=== PATIENT | female | born 1985 | race Caucasian/White ===

== ENCOUNTER → 2019-10-15 08:02 | Outpatient (BNVA) | payer MEDICAID, SELFPAY | PROVIDERS: Family Provider Family Medicine; PCP Family Medicine; Visit Provider Nurse Practitioner | DX: F33.1 Major depressive disorder, recurrent, moderate (principal); F41.1 Generalized anxiety disorder | CPT/HCPCS: 90832; 99213 ==

== ENCOUNTER 2019-10-26 12:33 | Outpatient (CLI) | payer MEDICAID, SELFPAY ==
--- NOTE | 2019-10-26 12:40 | CT_ITS ---
WS: [id number] CT scan of the sinuses without IV contrast. Additional two-dimensional coronal and sagittal reconstru ction was performed. 10/26/2019 Clinical Data: CHRONIC SINUSITIS/FEVER X 30 DAYS Comparison: None. DLP: 524.[address] scans at [facility] use at least one of these dose optimization techniques: automat ed exposure control; mA and/or kV adjustment per patient size (includes targeted exams where dose is matched to clinical indication); or iterative reconstruction. Findings: The sinus cavities are clear with no air-fluid levels or bone destruction. The orbits are intact. The nasal bones are unremarkable. The intraorbital contents show no abnormalities. CT/CT sinus wo con* [id number] Impression: Negative CT scan of the sinuses.
== END 2019-10-26 12:34 | disposition home or self-care (01) ==
LOC: RAD 12:37
PROVIDERS: Family Provider Family Medicine; PCP Family Medicine; Visit Provider Family Medicine
DX: J32.9 Chronic sinusitis, unspecified (principal); R50.9 Fever, unspecified
CPT/HCPCS: 70486

== ENCOUNTER 2019-10-26 15:52 | Outpatient (CLI) | payer MEDICAID, SELFPAY ==
--- NOTE | 2019-10-26 | XR_ITS ---
WS: [id number] CHEST 2 VIEWS HISTORY: FEVER COMPARISON: 11/13/2017 Lungs: Clear with no abnormality. No pleural effusion or pneumothorax. Cardiac size: Normal. Mediastinum/Aorta: Normal mediastinum. Bones: Normal. XR/XR chest 2V* [id number] IMPRESSION: Normal chest.
== END 2019-10-26 15:53 | disposition home or self-care (01) ==
LOC: RADOUTREAD 15:57
PROVIDERS: Family Provider Family Medicine; PCP Family Medicine; Visit Provider Family Medicine
DX: R50.9 Fever, unspecified (principal)

== ENCOUNTER 2019-11-03 10:40 | Emergency (ER) | payer MEDICAID, SELFPAY ==
[2019-11-03] VITALS (35 sets, daily range): BP systolic 102–142; BP diastolic 57–103; PULSE 83–120; RESP 16–18; TEMP 36.9; O2SAT 91–99; BMI 22.4
--- NOTE | 2019-11-03 10:54 | ED_ITS ---
Entered by Norma Collier, acting as scribe for Robert Lerner MD HPI - Abdominal Pain General: Chief Complaint: Abdominal Pain Stated Complaint: L side pain Time Seen by Provider: 11/03/19 10:52 Source: patient Mode of arrival: ambulatory Limitations: no limitations History of Present Illness: HPI narrative: 33 yo female presents to ED with complaints of LLQ abdominal pain. The patient states she has a lot of pain with urination and frequent urination. She said she has a history of UTI's. She denies vomiting but is nauseated and has diarrhea. MD elicited complaint: abdominal pain (LLQ) and flank pain (L) Pertinent past history: past UTI Onset (ago): hour(s) Pain Consistency: constant Location: LLQ and L flank Severity: severe Quality: cramping, fullness and sharp Radiation: none Migration to: L flank Exacerbating factors: nothing Relieving factors: nothing Associated Symptoms: Reports diarrhea and nausea; Denies chills and fever(s) Review of Systems Const: Denies: fever or chills Eyes: Denies: change in vision ENMT: Denies: throat pain or mouth pain Card: Denies: chest pain Resp: Denies: shortness of breath GI: Reports: abdominal pain, nausea and diarrhea Musc: Denies: joint pain Skin/Breast: Denies: rash Neuro: Denies: headache or behavioral changes Psych: Denies: depression Endo: Reports: excessive urination Kody/Lymph: Denies: easy bruising All/Imm: Denies: hives PFSH ED PFSH: Statuses (acute, chronic, etc) shown below reflect problem list status as previously entered and may not be historically accurate Medical History (Updated 11/03/19 @ 13:38 by Robert Lerner MD) Generalized anxiety disorder (Acute) Major depressive disorder, recurrent, moderate (Acute) Social History Smoking and tobacco status: never smoked Physical Exam Const: COMMON NORMALS: no apparent distress and healthy appearing HENMT: COMMON NORMALS: normocephalic and external nose normal HEAD & SCALP: normocephalic NOSE: external nose normal and no nasal discharge (nasal dischage) Eye: COMMON NORMALS: PERRL PUPIL: Yes PERRL Neck/C-Spine: COMMON NORMALS: full ROM and no lymphadenopathy Chest: COMMONS NORMALS: inspection of chest normal Resp: COMMON NORMALS: normal respiratory effort and clear to auscultation bilaterally AUSCULTATION: clear to auscultation bilaterally Cardio: COMMON NORMALS: regular rate and regular rhythm RATE: regular rate RHYTHM: regular rhythm GI: COMMON NORMALS: soft to palpation PALPATION: Yes soft OTHER: Tenderness to left lower quadrant mild to moderate. No rebound. Extremity: COMMON NORMALS: normal to inspection, full ROM and normal capillary refill Psych: COMMON NORMALS: mental status grossly normal and cooperative Skin: COMMON NORMALS: no rashes or lesions noted GENERAL SKIN EXAM: no rashes or lesions noted Course Vital Signs: Vital signs: Vital Signs Temperature 98.4 F 11/03/19 10:45 Pulse Rate 83 11/03/19 13:56 Respiratory Rate 18 11/03/19 13:56 Blood Pressure 102/57 11/03/19 13:56 Pulse Oximetry 99 11/03/19 13:56 MDM - Abdominal Pain MDM Narrative: Medical decision making narrative: Patient presents here with abdominal pain. Patient has no signs UTI and lab work is normal. His CT of her abdomen is normal as well. Her pain is improved here and will prescribe her Reglan for home. She is to follow-up with her primary care doctor in 3 to 5 days return if worsening. Lab Data: Labs: Lab Results 11/03/19 11/03/19 11/03/19 Range/Units 10:55 11:08 11:08 WBC 7.1 (4.0-10.0) 10^3/ uL RBC 4.73 (4.1-5.3) 10^6/u L Hgb 14.1 (11.5-15.3) g/dL Hct 40.3 (37.0-47.0) % MCV 85.2 (81-99) fL MCH 29.8 (28.0-34.0) pg MCHC 35.0 (30.0-36.0) g/dL RDW 12.2 (12.1-15.1) % Plt Count 314 (130-400) 10^3/c mm MPV 9.4 (7.4-10.4) fL Neut % (Auto) 45.9 % Lymph % (Auto) 44.7 % [place] % (Auto) 6.0 % Eos % (Auto) 2.7 % Baso % (Auto) 0.6 % Neut # (Auto) 3.3 (1.8-7.7) 10^3/u L Lymph # (Auto) 3.2 (0.8-4.8) 10^3/u L [place] # (Auto) 0.4 (0.2-0.9) 10^3/u L Eos # (Auto) 0.2 (0.0-0.8) 10^3/u L Baso # (Auto) 0.0 (0.0-0.1) 10^3/u L Nucleated RBC % (a uto) 0 % Nucleated RBCs # 0.0 /100WBC Sodium 137 (136-145) mmol/L Potassium 3.8 (3.5-5.1) mmol/L Chloride 102 (98-107) mmol/L Carbon Dioxide 22 (22-29) mmol/L Anion Gap 16.8 (5-19) BUN 10 (6-20) mg/dL Creatinine 0.7 (0.5-0.9) mg/dL GFR Calculation 95.2 (90-130) mL/min Glucose 105 (74-109) mg/dL Calcium 9.8 (8.5-10.5) mg/dL Total Bilirubin 0.5 (0.15-1.2) mg/dL AST 32 (0-32) U/L ALT 28 (0-33) U/L Alkaline Phosphata se 54 (35-105) IU/L Total Protein 6.9 (6.6-8.7) g/dL Albumin 5.0 (3.5-5.2) g/dL Globulin 1.9 (1.3-4.6) g/dL Lipase 48 (13-60) U/L Urine Color Colorless (Yellow) Urine Appearance Sl hazy (CLEAR) Urine pH 6.5 (5-7) Ur Specific Gravit y 1.000 L (1.005-1.030) Urine Protein Neg (Negative) Urine Glucose (UA) Norm (Normal) Urine Ketones Negative (Negative) Urine Occult Blood Neg (Negative) Urine Nitrate Negative (Negative) Urine Bilirubin Neg (NEGATIVE) Urine Urobilinogen Norm (Negative) mg/dL Ur Leukocyte Sridevi ase Negative (Negative) Urine RBC 0-4 H (0-2) /hpf Urine WBC 5-10 H (0-5) /hpf Ur Squamous Epith Cells 10-15 H (0-5) Amorphous Sediment 1+ Urine Bacteria 1+ H (NONE) Urine Mucus Trace Imaging Data ^: CT Abd/Pel: Radiologist's impression: [facility] Final Radiology Report Call: [phone] assistance Online chat: [email or web address] Name: KIKO DRIVER Age: 33Years F Date: 11/03/2019 SSN: -- : 1985 Study: CT ABDOMEN/PELVIS W Requesting Physician: robert Lerner Images: [id number] Add?l Studies: Provided Clinical History: abd pain Procedure Accession CTDI Vol (mGy) DLP (mGy-cm) CT ABDOMEN/PELVIS W [id number] 523.84 Page 1 of 2 PROCEDURE INFORMATION: Exam: CT Abdomen And Pelvis With Contrast Exam date and time: 11/03/2019 12:00 PM Age: 33 years old Clinical indication: Abdominal pain; Localized; Left lower quadrant (llq); Prior surgery; Surgery type: Hysterectomy; Patient HX: Llq pain with nausea this a. M. ; Additional info: Abd pain TECHNIQUE: Imaging protocol: Computed tomography of the abdomen and pelvis with intravenous contrast. Total DLP: 523.84 mGy-cm Radiation optimization: All CT scans at this facility use at least one of these dose optimization techniques: automated exposure control; mA and/or kV adjustment per patient size (includes targeted exams where dose is matched to clinical indication); or iterative reconstruction. Contrast material: OMNI 300; Contrast volume: 75 ml; Contrast route: 20G; COMPARISON: CT abdomen pelvis w con* [id number] 05/30/2019 11:35 AM FINDINGS: Liver: No mass. Gallbladder and bile ducts: No calcified stones. No ductal dilation. Pancreas: No ductal dilation. Spleen: No splenomegaly. Adrenals: No mass. Kidneys and ureters: No hydronephrosis. Stomach and bowel: No obstruction. No mucosal thickening. Appendix: No evidence of appendicitis. Intraperitoneal space: No free air. No significant fluid collection. KIKO DRIVER Final Radiology Report CONFIDENTIALITY STATEMENT This report is intended only for use by the referring physician, and only in accordance with law. If you received this in error, call [phone]. Page 2 of 2 Vasculature: No abdominal aortic aneurysm. Lymph nodes: No enlarged lymph nodes. Bladder: Unremarkable as visualized. Reproductive: Status post hysterectomy. 1.9 cm right ovarian cyst. Bones/joints: Unremarkable. No acute fracture. Soft tissues: Unremarkable. IMPRESSION: No acute findings. Thank you for allowing us to participate in the care of your patient. Dictated and Authenticated by: Talisha Tijerina MD 11/03/2019 Discharge Plan Discharge Patient Disposition: Home, Self-Care Clinical Impression: Abdominal pain Qualifiers: Abdominal location: left lower quadrant Qualified Code(s): R10.32 - Left lower quadrant pain Condition: Stable Prescriptions: New EC-Naprosyn 500 mg tablet,delayed release (DR/EC) 500 mg PO BID PRN (Reason: pain) Qty: 20 RF: 0 Reglan 10 mg tablet 10 mg PO Q6H PRN (Reason: nausea and vomiting) Qty: 20 RF: 0 No Action fluoxetine [Prozac] 10 mg capsule 10 mg PO DAILY Qty: 30 RF: 2 clonazepam 0.5 mg tablet 0.5 mg PO BID PRN (Reason: anxiety/panic) Qty: 70 RF: 2 Discharge Orders: Discharge Order (Routine); Ordered 11/03/19 Ordered By: Robert Lerner Referrals: Romel Mckeon MD [Primary Care Provider] - 4-7 days Discharge Diet: Advance as tolerated Discharge Activity: Increase activity as tolerated Patient Instructions: Abdominal Pain (ED) Discharge Date/Time: 11/03/19 13:56 Coding Level of Care Code ED Knitted Cloth Examiner for Chg Fwd Exam Problem Focused The documentation recorded by the Nando to Valerie R, accurately reflects the service I personally performed and the decisions made by Yann mccann Korby, MD Nov 03, 2019 10:40
[2019-11-03] MEDS: morphine 4 mg/mL SDV 1 mL IVP (11:15)
[2019-11-03] MEDS: ondansetron 2 mg/ML SDV 2 mL 4 MG IVP (11:15)
[2019-11-03] MEDS: sodium chloride 0.9% 1,000 ML 999 ML IV (11:17)
[2019-11-03 11:19] LABS: Basophils % 0.6 %; Eosinophils # 0.2 10^3/uL (0.0-0.8); Eosinophils % 2.7 %; Hematocrit 40.3 % (37.0-47.0); Hemoglobin 14.1 g/dL (11.5-15.3); Lymphocytes # 3.2 10^3/uL (0.8-4.8); Lymphocytes % 44.7 %; Mean Corpuscular Hemoglobin 29.8 pg (28.0-34.0); Mean Corpuscular Volume 85.2 fL (81-99); Mean Platelet Volume 9.4 fL (7.4-10.4); Monocytes # 0.4 10^3/uL (0.2-0.9); Neutrophils # 3.3 10^3/uL (1.8-7.7); Neutrophils % 45.9 %; Nucleated Red Blood Cells % 0 %; Platelet Count 314 10^3/cmm (130-400); Red Blood Count 4.73 10^6/uL (4.1-5.3); Red Cell Distribution Width 12.2 % (12.1-15.1); White Blood Count 7.1 10^3/uL (4.0-10.0)
[2019-11-03 11:35] LABS: Alanine Aminotransferase 28 U/L (0-33); Alkaline Phosphatase 54 IU/L (35-105); Anion Gap 16.8 (5-19); Aspartate Amino Transferase 32 U/L (0-32); Blood Urea Nitrogen 10 mg/dL (6-20); Calcium 9.8 mg/dL (8.5-10.5); Carbon Dioxide 22 mmol/L (22-29); Chloride 102 mmol/L (98-107); Globulin 1.9 g/dL (1.3-4.6); Glomerular Filtration Rate 95.2 mL/min (90-130); Glucose 105 mg/dL (74-109); Lipase 48 U/L (13-60); Potassium 3.8 mmol/L (3.5-5.1); Sodium 137 mmol/L (136-145); Total Bilirubin 0.5 mg/dL (0.15-1.2); Total Protein 6.9 g/dL (6.6-8.7)
[2019-11-03] MEDS: ketorolac 30 mg/mL INJ IVP (11:48)
[2019-11-03 11:54] LABS: Urine Appearance SL Hazy (CLEAR); Urine Color Colorless (Yellow); pH Urine 6.5 (5-7)
[2019-11-03 11:55] LABS: Add Urine Microscopic? YES; Bilirubin Urine Neg (NEGATIVE); Blood Urine Neg (Negative); Glucose Urine UA Norm (Normal); Ketones Urine Negative (Negative); Leukocyte Esterase Urine Negative (Negative); Nitrate Urine Negative (Negative); Protein Urine Neg (Negative); Urobilinogen Urine Norm (Negative)
[2019-11-03 11:56] LABS: Mucus Urine TRACE
[2019-11-03 11:57] LABS: Add Urine Culture? No; Amorphous Sediment Urine 1+; Bacteria Urine 1+; RBC Urine 0-4 /hpf (0-2)
--- NOTE | 2019-11-03 11:57 | CTR_ITS ---
PROCEDURE INFORMATION: Exam: CT Abdomen And Pelvis With Contrast Exam date and time: 11/03/2019 12:00 PM Age: 33 years old Clinical indication: Abdominal pain; Localized; Left lower quadrant (llq); Prior surgery; Surgery type: Hysterectomy; Patient HX: Llq pain with nausea this a. M. ; Additional info: Abd pain TECHNIQUE: Imaging protocol: Computed tomography of the abdomen and pelvis with intravenous contrast. Total DLP: 523.84 mGy-cm Radiation optimization: All CT scans at this facility use at least one of these dose optimization techniques: automated exposure control; mA and/or kV adjustment per patient size (includes targeted exams where dose is matched to clinical indication); or iterative reconstruction. Contrast material: OMNI 300; Contrast volume: 75 ml; Contrast route: 20G; COMPARISON: CT abdomen pelvis w con* [id number] 05/30/2019 11:35 AM FINDINGS: Liver: No mass. Gallbladder and bile ducts: No calcified stones. No ductal dilation. Pancreas: No ductal dilation. Spleen: No splenomegaly. Adrenals: No mass. Kidneys and ureters: No hydronephrosis. Stomach and bowel: No obstruction. No mucosal thickening. Appendix: No evidence of appendicitis. Intraperitoneal space: No free air. No significant fluid collection. Vasculature: No abdominal aortic aneurysm. Lymph nodes: No enlarged lymph nodes. Bladder: Unremarkable as visualized. Reproductive: Status post hysterectomy. 1.9 cm right ovarian cyst. Bones/joints: Unremarkable. No acute fracture. Soft tissues: Unremarkable. CT/CT abdomen pelvis w con* [id number] IMPRESSION: No acute findings. Radiation Dose CTDIVOL = (mGy): DLP = 523.84 (mGy-cm)
[2019-11-03] MEDS: iohexol 300 mg/mL 100 mL Btl IV (12:15)
[2019-11-03] MEDS: promethazine 25 mg/mL SDV 1 mL IM (12:28)
[2019-11-03] MEDS: sodium chloride 0.9% 50 ML 15 ML IV (12:28)
== END 2019-11-03 13:56 | disposition home or self-care (01) ==
PROVIDERS: Emergency Provider Emergency Medicine; Family Provider Family Medicine; PCP Family Medicine
DX: R10.32 Left lower quadrant pain (principal)
CPT/HCPCS: 74177; 80053; 81001; 83690; 85025; 96360; 96361; 96374; 99283; A9270; J1885; J2270; J2405; J2550; J7030; Q9967

== ENCOUNTER → 2020-01-24 07:38 | Outpatient (BNVA) | payer MEDICAID, SELFPAY | PROVIDERS: Family Provider Family Medicine; PCP Family Medicine; Visit Provider Nurse Practitioner | DX: F41.1 Generalized anxiety disorder (principal); F33.1 Major depressive disorder, recurrent, moderate | CPT/HCPCS: 99213 ==

== ENCOUNTER → 2020-06-03 07:49 | Outpatient (BNVA) | payer MEDICAID, SELFPAY | PROVIDERS: Family Provider Family Medicine; PCP Family Medicine; Visit Provider Nurse Practitioner | DX: F33.1 Major depressive disorder, recurrent, moderate (principal); F41.1 Generalized anxiety disorder | CPT/HCPCS: 99213 ==

== ENCOUNTER → 2020-06-08 11:12 | Outpatient (BNVA) | payer MEDICAID, SELFPAY | PROVIDERS: Family Provider Family Medicine; PCP Family Medicine; Visit Provider Nurse Practitioner | DX: R10.32 Left lower quadrant pain (principal); B34.9 Viral infection, unspecified | CPT/HCPCS: 81000; 87635 ==

== ENCOUNTER → 2020-06-12 10:45 | Outpatient (BNVA) | payer MEDICAID, SELFPAY | PROVIDERS: Family Provider Family Medicine; PCP Family Medicine; Referring Provider Dermatology; Visit Provider Dermatology | DX: D48.9 Neoplasm of uncertain behavior, unspecified (principal); Z12.83 Encounter for screening for malignant neoplasm of skin; L21.9 Seborrheic dermatitis, unspecified; D22.9 Melanocytic nevi, unspecified | CPT/HCPCS: 11102; 11103; 88304; 88305; 99203 ==

== ENCOUNTER → 2020-08-21 08:24 | Outpatient (BNVA) | payer MEDICAID, SELFPAY | PROVIDERS: Family Provider Family Medicine; PCP Family Medicine; Visit Provider Nurse Practitioner | DX: F33.1 Major depressive disorder, recurrent, moderate (principal); F41.1 Generalized anxiety disorder | CPT/HCPCS: 99213 ==

== ENCOUNTER 2020-11-07 03:26 | Emergency (ER) | payer MEDICAID, SELFPAY ==
[2020-11-07 03:30] VITALS: BP 137/83; PULSE 112; RESP 20; TEMP 36.6; O2SAT 97; BMI 24.0
--- NOTE | 2020-11-07 03:38 | CTR_ITS ---
PROCEDURE INFORMATION: Exam: CT Abdomen And Pelvis With Contrast Exam date and time: 11/07/2020 4:17 AM Age: 34 years old Clinical indication: Nausea and vomiting; Abdominal pain; Generalized; Prior surgery; Surgery type: Hysterectomy. Laprascopy for endometriosis; Patient HX: Abd pain with n/v/d x 2 weeks TECHNIQUE: Imaging protocol: Computed tomography of the abdomen and pelvis with contrast. Radiation optimization: All CT scans at this facility use at least one of these dose optimization techniques: automated exposure control; mA and/or kV adjustment per patient size (includes targeted exams where dose is matched to clinical indication); or iterative reconstruction. Contrast material: OMNI 300; Contrast volume: 75 ml; Contrast route: INTRAVENOUS (IV); COMPARISON: CT abdomen pelvis w con* [id number] 11/03/2019 12:27 PM RADIATION DOSE METRICS: Total DLP (mGy-cm): 488.41 FINDINGS: Liver: Normal. No mass. Gallbladder and bile ducts: No calcified stones. No pericholecystic inflammatory changes. No ductal dilation. Pancreas: Normal. No ductal dilation. Spleen: No splenomegaly. Adrenal glands: Normal. No mass. Kidneys and ureters: Normal. No hydronephrosis. Stomach and bowel: Liquid stool is seen throughout the colon. Appendix: Normal appendix. Intraperitoneal space: No free air. No significant fluid collection. Vasculature: No abdominal aortic aneurysm. Lymph nodes: No enlarged lymph nodes. Urinary bladder: Unremarkable as visualized. Reproductive: Hysterectomy. Bones/joints: Unremarkable. No acute fracture. Soft tissues: Unremarkable. CT/CT abdomen pelvis w con* [id number] IMPRESSION: Liquid stool is seen throughout the colon. Radiation Dose CTDIVOL = (mGy): DLP = 488.41 (mGy-cm)
--- NOTE | 2020-11-07 03:42 | W.ED.ABDPA2 ---
HPI - Abdominal Pain General: Chief Complaint: Abdominal Pain Stated Complaint: experiencing covid symptoms, in tv waiting room Time Seen by Provider: 11/07/20 03:28 Source: patient Mode of arrival: ambulatory Limitations: no limitations History of Present Illness: HPI narrative: 34-year-old female states over the last 10 days she has been having epigastric abdominal pain. States the pain is worsened and is sharp in nature and is now a 7 out of 10. States she had vomiting over the last 2 days. She states she had 1 bloody emesis today after retching. She denies any blood in her stools. She has had some diarrhea as well. She states she has had fever up to 102 at home. States her pain is sharp in nature and rates it a 7 out of 10. Denies any worsening or improving factors. Denies any cough or shortness of breath. MD elicited complaint: abdominal pain Associated Symptoms: Reports fever(s), nausea and vomiting; Denies dysuria Review of Systems Const: Reports: fever(s) Eyes: Denies: blurry vision or eye discomfort ENMT: Denies: throat pain or dental pain Card: Denies: chest pain Resp: Denies: dyspnea GI: Reports: abdominal pain, nausea and vomiting : Denies: dysuria Musc: Denies: neck pain or back pain Skin/Breast: Denies: rash Neuro: Denies: headache(s) Psych: Denies: depression Kody/Lymph: Denies: easy bruising All/Imm: Denies: urticaria PFSH ED PFSH: Medical History (Updated 11/07/20 @ 05:38 by Robert Lerner MD) Generalized anxiety disorder Major depressive disorder, recurrent, moderate Social History Smoking and tobacco status: never smoked Physical Exam Const: COMMON NORMALS: no acute distress, patient oriented x3 and healthy appearing HENMT: COMMON NORMALS: normocephalic and atraumatic HEAD & SCALP: normocephalic and atraumatic Eye: COMMON NORMALS: Equal, round and reactive pupils present and EOMs intact bilaterally PUPIL: Yes Equal, round and reactive pupils present Neck/C-Spine: COMMON NORMALS: full ROM and supple Chest: COMMONS NORMALS: normal inspection of the chest and normal palpation of entire chest wall Resp: COMMON NORMALS: normal respiratory effort, No retractions, No use of accessory muscles and clear to auscultation bilaterally AUSCULTATION: clear to auscultation bilaterally Cardio: COMMON NORMALS: regular rate, regular rhythm and No murmurs present (Cardio) RATE: regular rate RHYTHM: regular rhythm GI: COMMON NORMALS: Normal to inspection, nondistended, normoactive bowel sounds present, Soft to palpation and no masses PALPATION: Yes Soft to palpation and Yes Tenderness to palpation present (GI) (epigastric) Extremity: COMMON NORMALS: normal to inspection and full ROM Neuro: COMMON NORMALS: patient oriented x3, moves all extremities and no focal motor deficits Psych: COMMON NORMALS: mental status grossly normal, Normal thought process present and cooperative THOUGHT PROCESS: Normal thought process present Skin: COMMON NORMALS: no rashes or lesions noted and no wounds GENERAL SKIN EXAM: no rashes or lesions noted Course Vital Signs: Vital signs: Vital Signs Temperature 97.9 F 11/07/20 03:30 Pulse Rate 74 11/07/20 05:06 Respiratory Rate 14 11/07/20 05:06 Blood Pressure 112/70 11/07/20 05:06 Pulse Oximetry 99 11/07/20 05:06 MDM - Abdominal Pain MDM Narrative: Medical decision making narrative: Patient presents here with vomiting and diarrhea along with abdominal cramping. She did have one episode of bloody vomitus is likely Jeannie-Medina tear. Her hemoglobin here is normal and she had no more bleeding. She feels improved after Zofran is able to tolerate p.o. fluids. I informed her to drink Pedialyte along with stick to a brat diet. Will prescribe her Zofran along with dicyclomine. She states she had been doing a keto diet recently and I informed her that she is to try to do a balanced diet. Patient given IV fluids here. Her abdominal exam at discharge is benign. She is stable for discharge and is to follow-up with PCP in 2 to 4 days return if worsening. Lab Data: Labs: Lab Results 11/07/20 11/07/20 11/07/20 Range/Units 03:43 03:43 04:07 WBC 6.6 (4.0-10.0) 10^3/ uL RBC 4.89 (4.1-5.3) 10^6/u L Hgb 14.2 (11.5-15.3) g/dL Hct 42.0 (37.0-47.0) % MCV 85.9 (81-99) fL MCH 29.0 (28.0-34.0) pg MCHC 33.8 (30.0-36.0) g/dL RDW 12.4 (12.1-15.1) % Plt Count 342 (130-400) 10^3/c mm MPV 9.4 (7.4-10.4) fL Neut % (Auto) 48.2 % Lymph % (Auto) 41.0 % [place] % (Auto) 7.0 % Eos % (Auto) 2.7 % Baso % (Auto) 0.9 % Neut # (Auto) 3.17 (1.8-7.7) 10^3/u L Lymph # (Auto) 2.7 (0.8-4.8) 10^3/u L [place] # (Auto) 0.5 (0.2-0.9) 10^3/u L Eos # (Auto) 0.2 (0.0-0.8) 10^3/u L Baso # (Auto) 0.1 (0.0-0.1) 10^3/u L Nucleated RBC % (a uto) 0 % Nucleated RBCs # 0.0 /100WBC Sodium 140 (136-145) mmol/L Potassium 3.3 L (3.5-5.1) mmol/L Chloride 103 (98-107) mmol/L Carbon Dioxide 16 L (22-29) mmol/L Anion Gap 24.3 H (5-19) BUN 7 (6-20) mg/dL Creatinine 0.7 (0.5-0.9) mg/dL GFR Calculation 94.7 (90-130) mL/min Glucose 67 (65-115) mg/dL Calculated Osmolal ity 286 (285-295) mOsm/k g Calcium 9.2 (8.5-10.5) mg/dL Total Bilirubin 0.6 (0.15-1.2) mg/dL AST 27 (0-32) U/L ALT 16 (0-33) U/L Alkaline Phosphata se 56 (35-105) IU/L Total Protein 7.2 (6.6-8.7) g/dL Albumin 4.5 (3.5-5.2) g/dL Globulin 2.7 (1.3-4.6) g/dL Lipase 31 (13-60) U/L Urine Color Yellow (Yellow) Urine Appearance Sl hazy (CLEAR) Urine pH 5 (5-7) Ur Specific Gravit y 1.030 (1.005-1.030) Urine Protein Neg (Negative) Urine Glucose (UA) Norm (Normal) Urine Ketones 3+ H (Negative) Urine Blood Trace H (Negative) Urine Nitrate Negative (Negative) Urine Bilirubin Neg (Negative) Urine Urobilinogen Norm (Negative) mg/dL Ur Leukocyte Sridevi ase Negative (Negative) Urine RBC 0-4 H (0-2) /hpf Urine WBC 0-4 H (0-5) /hpf Ur Squamous Epith Cells 10-15 H (0-5) /hpf Amorphous Sediment Not Reportable Urine Bacteria Trace (NONE) /hpf Urine Mucus 1+ /hpf Imaging Data ^: CT Abd/Pel: Attestation: I personally reviewed and interpreted this imaging study as follows: Radiologist's impression: [facility] [address] [address] Scan Report Signed Patient: Anaylei Herrera Unit #: [id number] : 1985 Age/Sex: 34 / F ADM Date: 11/07/20 Loc: ER Room/Bed: Attending Dr: Ordering Provider/Ordering MD: Robert Lerner MD Date of Service: 11/07/20 Procedure(s): CT abdomen pelvis w con* [id number] Accession Number(s): [id number] Report Number: [id number] PROCEDURE INFORMATION: Exam: CT Abdomen And Pelvis With Contrast Exam date and time: 11/07/2020 4:17 AM Age: 34 years old Clinical indication: Nausea and vomiting; Abdominal pain; Generalized; Prior surgery; Surgery type: Hysterectomy. Laprascopy for endometriosis; Patient HX: Abd pain with n/v/d x 2 weeks TECHNIQUE: Imaging protocol: Computed tomography of the abdomen and pelvis with contrast. Radiation optimization: All CT scans at this facility use at least one of these dose optimization techniques: automated exposure control; mA and/or kV adjustment per patient size (includes targeted exams where dose is matched to clinical indication); or iterative reconstruction. Contrast material: OMNI 300; Contrast volume: 75 ml; Contrast route: INTRAVENOUS (IV); COMPARISON: CT abdomen pelvis w con* [id number] 11/03/2019 12:27 PM RADIATION DOSE METRICS: Total DLP (mGy-cm): 488.41 FINDINGS: Liver: Normal. No mass. Gallbladder and bile ducts: No calcified stones. No pericholecystic inflammatory changes. No ductal dilation. Pancreas: Normal. No ductal dilation. Spleen: No splenomegaly. Adrenal glands: Normal. No mass. Kidneys and ureters: Normal. No hydronephrosis. Stomach and bowel: Liquid stool is seen throughout the colon. Appendix: Normal appendix. Intraperitoneal space: No free air. No significant fluid collection. Vasculature: No abdominal aortic aneurysm. Lymph nodes: No enlarged lymph nodes. Urinary bladder: Unremarkable as visualized. Reproductive: Hysterectomy. Bones/joints: Unremarkable. No acute fracture. Soft tissues: Unremarkable. CT/CT abdomen pelvis w con* [id number] IMPRESSION: Liquid stool is seen throughout the colon. Discharge Plan Discharge Patient Disposition: Home Clinical Impression: Abdominal pain Qualifiers: Abdominal location: generalized Qualified Code(s): R10.84 - Generalized abdominal pain Vomiting Qualifiers: Vomiting type: unspecified Vomiting Intractability: non-intractable Nausea presence: with nausea Qualified Code(s): R11.2 - Nausea with vomiting, unspecified Condition: Stable Prescriptions: New ondansetron 4 mg tablet,disintegrating 4 mg PO Q6H PRN (Reason: nausea and vomiting) Qty: 14 RF: 0 dicyclomine 20 mg tablet 20 mg PO BID PRN (Reason: abdominal pain) Qty: 20 RF: 0 No Action clonazepam 0.5 mg tablet 0.5 mg PO BID PRN (Reason: anxiety) Qty: 70 RF: 2 Discharge Orders: Discharge ED (Routine); Ordered 11/07/20 Ordered By: Robert Lerner Referrals: Romel Mckeon MD [Primary Care Provider] - 1-3 days Discharge Diet: Advance as tolerated Discharge Activity: Resume usual activity Patient Instructions: Acute Nausea and Vomiting (ED), Abdominal Pain (ED) Coding Level of Care Code ED Underwriter Solicitation Director for Chg Fwd 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
[2020-11-07 03:43] VITALS: BP 137/83; PULSE 104; RESP 23; O2SAT 96
[2020-11-07] MEDS: sodium chloride 0.9% 1,000 ML 999 ML IV ×2 (03:45→05:03)
[2020-11-07] MEDS: ondansetron 2 mg/ML SDV 2 mL 4 MG IVP (03:45)
[2020-11-07 03:50] VITALS: RESP 24; O2SAT 97
[2020-11-07] MEDS: morphine 4 mg/mL SDV 1 mL IVP (03:50)
[2020-11-07 03:54] LABS: Basophils # 0.1 10^3/uL (0.0-0.1); Basophils % 0.9 %; Eosinophils # 0.2 10^3/uL (0.0-0.8); Eosinophils % 2.7 %; Hemoglobin 14.2 g/dL (11.5-15.3); Lymphocytes # 2.7 10^3/uL (0.8-4.8); Mean Corpuscular HGB Conc 33.8 g/dL (30.0-36.0); Mean Corpuscular Volume 85.9 fL (81-99); Mean Platelet Volume 9.4 fL (7.4-10.4); Monocytes # 0.5 10^3/uL (0.2-0.9); Neutrophils # 3.17 10^3/uL (1.8-7.7); Neutrophils % 48.2 %; Nucleated Red Blood Cells % 0 %; Platelet Count 342 10^3/cmm (130-400); Red Blood Count 4.89 10^6/uL (4.1-5.3); Red Cell Distribution Width 12.4 % (12.1-15.1); White Blood Count 6.6 10^3/uL (4.0-10.0)
[2020-11-07 04:15] LABS: Alanine Aminotransferase 16 U/L (0-33); Albumin Level 4.5 g/dL (3.5-5.2); Alkaline Phosphatase 56 IU/L (35-105); Anion Gap 24.3 (5-19); Aspartate Amino Transferase 27 U/L (0-32); Blood Urea Nitrogen 7 mg/dL (6-20); Calcium 9.2 mg/dL (8.5-10.5); Carbon Dioxide 16 mmol/L (22-29); Chloride 103 mmol/L (98-107); Globulin 2.7 g/dL (1.3-4.6); Glomerular Filtration Rate 94.7 mL/min (90-130); Glucose 67 mg/dL (65-115); Lipase 31 U/L (13-60); Osmolality Calculated 286 mOsm/kg (285-295); Potassium 3.3 mmol/L (3.5-5.1); Sodium 140 mmol/L (136-145); Total Bilirubin 0.6 mg/dL (0.15-1.2); Total Protein 7.2 g/dL (6.6-8.7)
[2020-11-07 04:16] VITALS: BP 120/73; PULSE 88; RESP 17; O2SAT 96
[2020-11-07] MEDS: iohexol 300 mg/mL 100 mL Btl IV (04:27)
[2020-11-07 04:32] LABS: Urine Appearance SL Hazy (CLEAR); Urine Color Yellow (Yellow); pH Urine 5 (5-7)
[2020-11-07 04:33] LABS: Add Urine Microscopic? YES; Bilirubin Urine Neg (Negative); Blood Urine Trace (Negative); Glucose Urine UA Norm (Normal); Ketones Urine 3+ (Negative); Leukocyte Esterase Urine Negative (Negative); Nitrate Urine Negative (Negative); Protein Urine Neg (Negative); Urobilinogen Urine Norm (Negative)
[2020-11-07 04:34] LABS: RBC Urine 0-4 /hpf (0-2); WBC Urine 0-4 /hpf (0-5)
[2020-11-07 04:35] LABS: Add Urine Culture? No; Bacteria Urine TRACE /hpf; Mucus Urine 1+ /hpf
[2020-11-07 05:06] VITALS: BP 112/70; PULSE 74; RESP 14; O2SAT 99
[2020-11-07 05:49] VITALS: BP 114/62; PULSE 95; RESP 16; O2SAT 99
[2020-11-07 19:00] LABS: Coronavirus Test Green County Not Detected
--- NOTE | 2020-11-08 08:37 | PC.NURSE ---
Pt called and notified of negative COVID result.
== END 2020-11-07 05:52 | disposition home or self-care (01) ==
PROVIDERS: Emergency Provider Emergency Medicine; PCP Family Medicine
DX: R10.84 Generalized abdominal pain (principal); R11.2 Nausea with vomiting, unspecified
CPT/HCPCS: 12345; 74177; 80053; 81001; 83690; 85025; 87635; 96361; 96374; 96375; 99283; J2270; J2405; J7030; Q9967

== ENCOUNTER → 2021-02-16 08:24 | Outpatient (BNVA) | payer MEDICAID, SELFPAY | PROVIDERS: PCP Family Medicine; Visit Provider Nurse Practitioner | DX: F41.1 Generalized anxiety disorder (principal); F33.1 Major depressive disorder, recurrent, moderate | CPT/HCPCS: 99214 ==

== ENCOUNTER 2021-05-05 08:25 | Emergency (ER) | payer MEDICAID, SELFPAY ==
[2021-05-05] VITALS (7 sets, daily range): BP systolic 104–154; BP diastolic 69–97; PULSE 88–147; RESP 14–26; TEMP 36.7; O2SAT 97–100; BMI 20.5
--- NOTE | 2021-05-05 08:52 | XR_ITS ---
WS: [id number] XR chest 1V portable [id number] REASON FOR EXAM: Cough FINDINGS: Heart and mediastinum are within normal limits. No active pulmonary parenchymal or pleural disease is noted. The bony thorax is intact. XR/XR chest 1V portable [id number] IMPRESSION: No acute chest abnormality.
--- NOTE | 2021-05-05 08:53 | ED_ITS ---
HPI - Chest Pain General: Chief Complaint: Chest Pain Stated Complaint: cp Time Seen by Provider: 05/05/21 08:49 History of Present Illness: HPI narrative: This patient is a 35-year-old female who presents to the emergency department with complaint of sudden onset of chest pain and nausea. 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 Patient denies syncope. Patient states that she has no significant medical problems states that she did have to wear heart monitor in the past due to tachycardia. Patient states that she has had a hyste rectomy 3 years ago. Will do medical evaluation treat as needed. Patient denies the use of any hormone replacement. Pain location: left chest Pain radiation: none Quality: sharp Relieving factors: nothing Exacerbating factors: nothing Associated symptoms: Deny abdominal pain, dyspnea, fever(s), nausea, palpitations or vomiting Review of Systems General: Reports: 10 or more systems reviewed and unremarkable except in HPI and below Const: Denies: fever(s), chills, body aches or fatigue Eyes: Denies: change in vision or blurry vision ENMT: Denies: throat pain, hoarseness or mouth pain Card: Denies: chest pain, palpitations, irregular heart rhythm, edema, swelling of feet/ankles or lightheadedness Resp: Denies: dyspnea, productive cough, non-productive cough, wheezing or pain on inspiration GI: Denies: abdominal pain, nausea or vomiting : Denies: flank pain, difficulty voiding, dysuria, urinary frequency, uri nary urgency or urinary hesitancy Musc: Denies: neck pain, back pain, extremity pain, extremity swelling, joint pain, joint swelling, joint redness, joint warmth or limited range of motion Skin/Breast: Denies: rash, pruritus, erythema or skin tenderness Neuro: Denies: headache(s), numbness in extremities or weakness in extremities Psych: Denies: anxiety or depression [facility] ED PFSH: Medical History (Updated 05/05/21 @ 12:40 by Rusty Talbert MD) Generalized anxiety disorder Major depressive disorder, recurrent, moderate Social History Smoking and tobacco status: never smoked Physical Exam Const: COMMON NORMALS: no acute distress, average body habitus, patient oriented x3, no limitations, healthy appearing, alert and well nourished HENMT: COMMON NORMALS: normocephalic, atraumatic, hearing grossly normal bilaterally, external ears normal, EAC's normal, TM's normal bilaterally, Normal external nose present, Normal nasal mucous membranes and turbinates present, moist oral mucous membranes, oropharynx normal, dentition normal and gingiva normal HEAD & SCALP: normocephalic and atraumatic NOSE: Normal external nose present and Normal nasal mucous membranes and turbinates present EXTERNAL EAR: Yes external ears normal EXTERNAL AUDITORY CANAL: EAC's normal TYMPANIC MEMBRANE: TM's normal bilaterally Neck/C-Spine: COMMON NORMALS: full ROM, no lymphadenopathy, supple, no meningeal signs, no JVD, Thyroid normal and No carotid bruits THYROID: Thyroid normal Chest: COMMONS NORMALS: normal inspection of the chest, normal palpation of entire chest wall, normal inspection of the breasts and normal palpation of the breasts Breast/axilla inspection: Yes normal inspection of the breasts BREAST/AXILLA PALPATION: Yes normal palpation of the breasts Resp: COMMON NORMALS: normal respiratory effort, No retractions, No use of accessory muscles, clear to auscultation bilaterally and percussion normal AUSCULTATION: clear to auscultation bilaterally PERCUSSION: percussion normal Cardio: COMMON NORMALS: no JVD, regular rate, regular rhythm, S1 normal heart sound present, S2 normal heart sound present, No gallops present (Cardio), No clicks present (Cardio), No murmurs present (Cardio), No rub (Cardio) and Peripheral pulses 2+ throughout RATE: regular rate RHYTHM: regular rhythm HEART SOUNDS: S1 normal heart sound present and S2 normal heart sound present PERIPHERAL PULSES: Peripheral pulses 2+ throughout GI: COMMON NORMALS: Normal to inspection, nondistended, normoactive bowel sounds present, Soft to palpation, non-tender, No hepatosplenomegaly present, no masses and no bruits PALPATION: Yes Soft to palpation and Yes No hepatosplenomegaly present Back/Pelvis: COMMON NORMALS: thoracic and lumbar spine normal to inspection, no thoracic nor lumbar tenderness, thoraco-lumbar ROM normal and straight leg raise negative bilaterally Extremity: COMMON NORMALS: normal to inspection, full ROM, capillary refill normal, no joint enlargement, no clubbing, cyanosis or edema, no calf tenderness and no pedal edema Neuro: COMMON NORMALS: patient oriented x3 SENSORIUM/ORIENTATION: Yes alert MENINGEAL SIGNS: Yes no meningeal signs Course Reevaluation(s): Reevaluation #1: Negative evaluation in the emergency depar tment for any acute findings. Discussed at length with patient about options. Patient will follow up with primary care physician for any further evaluation or treatment Time: 12:39 Vital Signs: Vital signs: Vital Signs Temperature 98.0 F 05/05/21 08:33 Pulse Rate 114 H 05/05/21 11:04 Respiratory Rate 18 05/05/21 11:04 Blood Pressure 112/73 05/05/21 11:04 Pulse Oximetry 99 05/05/21 11:04 MDM - Chest Pain MDM Narrative: Medical decision making narrative: Negative evaluation in the emergency department for any acute findings. Discussed at length with patient about options. Patient will follow up with primary care physician for any further evaluation or treatment Lab Data: Labs: Lab Results 05/05/21 05/05/21 05/05/21 Range/Units 08:48 08:48 08:48 WBC 9.6 (4.0-10.0) 10^3/ uL RBC 4.99 (4.1-5.3) 10^6/u L Hgb 14.9 (11.5-15.3) g/dL Hct 42.9 (37.0-47.0) % MCV 86.0 (81-99) fL MCH 29.9 (28.0-34.0) pg MCHC 34.7 (30.0-36.0) g/dL RDW 13.0 (12.1-15.1) % Plt Count 411 H (130-400) 10^3/c mm MPV 9.8 (7.4-10.4) fL Neut % (Auto) 54.8 % Lymph % (Auto) 36.6 % Nicholas % (Auto) 6.7 % Eos % (Auto) 1.0 % Baso % (Auto) 0.7 % Neut # (Auto) 5.27 (1.8-7.7) 10^3/u L Lymph # (Auto) 3.5 (0.8-4.8) 10^3/u L Nicholas # (Auto) 0.6 (0.2-0.9) 10^3/u L Eos # (Auto) 0.1 (0.0-0.8) 10^3/u L Baso # (Auto) 0.1 (0.0-0.1) 10^3/u L Nucleated RBC % (a uto) 0 % Nucleated RBCs # 0.0 /100WBC PT (12.1-14.9) SECO NDS INR (0.8-1.2) APTT (23.9-36.7) SECO NDS D-Dimer (0-0.59) ug/mIFE U Sodium 139 (136-145) mmol/L Potassium 4.1 (3.5-5.1) mmol/L Chloride 100 (98-107) mmol/L Carbon Dioxide 20 L (22-29) mmol/L Anion Gap 23.1 H (5-19) BUN 9 (6-20) mg/dL Creatinine 0.6 (0.5-0.9) mg/dL GFR Calculation 112.5 (90-130) mL/min Glucose 102 (65-115) mg/dL Calculated Osmolal ity 287 (285-295) mOsm/k g Calcium 9.4 (8.5-10.5) mg/dL Total Bilirubin 0.6 (0.15-1.2) mg/dL AST 28 (0-32) U/L ALT 19 (0-33) U/L Alkaline Phosphata se 60 (35-105) IU/L Troponin T Baselin e 6 (0-10) ng/L Troponin T 120 Min eva (0-10) ng/L Delta Troponin T (0-10) ABS# NT-Pro-B Natriuret Pep 37 (0-125) pg/mL Total Protein 6.6 (6.6-8.7) g/dL Albumin 4.4 (3.5-5.2) g/dL Globulin 2.2 (1.3-4.6) g/dL Urine Color (Yellow) Urine Appearance (CLEAR) Urine pH (5-7) Ur Specific Gravit y (1.005-1.030) Urine Protein (Negative) Urine Glucose (UA) (Normal) Urine Ketones (Negative) Urine Blood (Negative) Urine Nitrate (Negative) Urine Bilirubin (Negative) Urine Urobilinogen (Negative) mg/dL Ur Leukocyte Sridevi ase (Negative) 05/05/21 05/05/21 05/05/21 Range/Units 09:00 11:04 11:24 WBC (4.0-10.0) 10^3/ uL RBC (4.1-5.3) 10^6/u L Hgb (11.5-15.3) g/dL Hct (37.0-47.0) % MCV (81-99) fL MCH (28.0-34.0) pg MCHC (30.0-36.0) g/dL RDW (12.1-15.1) % Plt Count (130-400) 10^3/c mm MPV (7.4-10.4) fL Neut % (Auto) % Lymph % (Auto) % Nicholas % (Auto) % Eos % (Auto) % Baso % (Auto) % Neut # (Auto) (1.8-7.7) 10^3/u L Lymph # (Auto) (0.8-4.8) 10^3/u L Nicholas # (Auto) (0.2-0.9) 10^3/u L Eos # (Auto) (0.0-0.8) 10^3/u L Baso # (Auto) (0.0-0.1) 10^3/u L Nucleated RBC % (a uto) % Nucleated RBCs # /100WBC PT 12.30 (12.1-14.9) SECO NDS INR 0.89 (0.8-1.2) APTT 26.7 (23.9-36.7) SECO NDS D-Dimer 0.28 (0-0.59) ug/mIFE U Sodium (136-145) mmol/L Potassium (3.5-5.1) mmol/L Chloride (98-107) mmol/L Carbon Dioxide (22-29) mmol/L Anion Gap (5-19) BUN (6-20) mg/dL Creatinine (0.5-0.9) mg/dL GFR Calculation (90-130) mL/min Glucose (65-115) mg/dL Calculated Osmolal ity (285-295) mOsm/k g Calcium (8.5-10.5) mg/dL Total Bilirubin (0.15-1.2) mg/dL AST (0-32) U/L ALT (0-33) U/L Alkaline Phosphata se (35-105) IU/L Troponin T Baselin e (0-10) ng/L Troponin T 120 Min vea 6.00 (0-10) ng/L Delta Troponin T 0 (0-10) ABS# NT-Pro-B Natriuret Pep (0-125) pg/mL Total Protein (6.6-8.7) g/dL Albumin (3.5-5.2) g/dL Globulin (1.3-4.6) g/dL Urine Color Yellow (Yellow) Urine Appearance Clear (CLEAR) Urine pH 7 (5-7) Ur Specific Gravit y 1.005 (1.005-1.030) Urine Protein Neg (Negative) Urine Glucose (UA) Norm (Normal) Urine Ketones 1+ H (Negative) Urine Blood Neg (Negative) Urine Nitrate Negative (Negative) Urine Bilirubin Neg (Negative) Urine Urobilinogen Norm (Negative) mg/dL Ur Leukocyte Sridevi ase Negative (Negative) Imaging Data^: CXR: Attestation: I personally reviewed and interpreted this imaging study as follows: Radiologist's impression: IMPRESSION: No acute chest abnormality. EKG Data^: EKG 1: Attestation: I personally reviewed and interpreted this EKG as follows: EKG interpretation date: 05/05/21 EKG interpretation time: 08:38 Prior EKG tracings: not available for review Interpretation: Sinus tachycardia with possible atrial flutter heart rate 147. Discharge Plan Discharge Patient Disposition: Home Clinical Impression: Atypical chest pain Condition: Stable Prescriptions: No Action clonazepam 0.5 mg tablet 0.5 mg PO BID PRN (Reason: anxiety) Qty: 70 RF: 2 Discharge Orders: Discharge ED (Routine); Ordered 05/05/21 Ordered By: Rusty Talbert Referrals: Romel Mckeon MD [Primary Care Provider] - Discharge Diet: Advance as tolerated Discharge Activity: Resume usual activity and Increase activity as tolerated Patient Instructions: Opioid Safety Activity Restrictions/Additional Instructions: Encourage p.o. fluids. Get plenty rest. Follow-up with PCP in 2 to 3 days. Continue all home medications. Coding Level of Care Code ED Liquefier for Chg Fwd 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
[2021-05-05] MEDS: sodium chloride 0.9% 500 ML IV (08:58)
[2021-05-05] MEDS: ondansetron 2 mg/ML SDV 2 mL 4 MG IVP ×2 (08:58→09:17)
[2021-05-05] MEDS: morphine 4 mg/mL SDV 1 mL 2 MG IVP (08:59)
[2021-05-05 09:01] LABS: Basophils # 0.1 10^3/uL (0.0-0.1); Basophils % 0.7 %; Eosinophils # 0.1 10^3/uL (0.0-0.8); Hematocrit 42.9 % (37.0-47.0); Hemoglobin 14.9 g/dL (11.5-15.3); Lymphocytes # 3.5 10^3/uL (0.8-4.8); Lymphocytes % 36.6 %; Mean Corpuscular HGB Conc 34.7 g/dL (30.0-36.0); Mean Corpuscular Hemoglobin 29.9 pg (28.0-34.0); Mean Platelet Volume 9.8 fL (7.4-10.4); Monocytes # 0.6 10^3/uL (0.2-0.9); Monocytes % 6.7 %; Neutrophils # 5.27 10^3/uL (1.8-7.7); Neutrophils % 54.8 %; Nucleated Red Blood Cells % 0 %; Platelet Count 411 10^3/cmm (130-400); Red Blood Count 4.99 10^6/uL (4.1-5.3); White Blood Count 9.6 10^3/uL (4.0-10.0)
[2021-05-05 09:20] LABS: Troponin(5th) Baseline 6 ng/L (0-10)
[2021-05-05 09:22] LABS: INR 0.89 (0.8-1.2)
[2021-05-05 09:23] LABS: Partial Thromboplastin Time 26.7 SECONDS (23.9-36.7)
[2021-05-05 09:25] LABS: D Dimer 0.28 ug/mIFEU (0-0.59)
[2021-05-05 09:28] LABS: Alanine Aminotransferase 19 U/L (0-33); Albumin Level 4.4 g/dL (3.5-5.2); Alkaline Phosphatase 60 IU/L (35-105); Aspartate Amino Transferase 28 U/L (0-32); Blood Urea Nitrogen 9 mg/dL (6-20); Calcium 9.4 mg/dL (8.5-10.5); Carbon Dioxide 20 mmol/L (22-29); Chloride 100 mmol/L (98-107); Globulin 2.2 g/dL (1.3-4.6); Glomerular Filtration Rate 112.5 mL/min (90-130); Glucose 102 mg/dL (65-115); NT Pro B Type Natriuretic Pept 37 pg/mL (0-125); Osmolality Calculated 287 mOsm/kg (285-295); Sodium 139 mmol/L (136-145); Total Bilirubin 0.6 mg/dL (0.15-1.2); Total Protein 6.6 g/dL (6.6-8.7)
[2021-05-05 09:33] LABS: Anion Gap 23.1 (5-19); Potassium 4.1 mmol/L (3.5-5.1)
[2021-05-05] MEDS: ketorolac 30 mg/mL INJ 15 MG IVP (09:52)
--- NOTE | 2021-05-05 10:49 | ECG_ITS ---
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 Measurements Intervals [place] Rate: 91 P: 66 TN: 169 QRS: 70 QRSD: 82 T: 64 QT: 362 QTc: 447 Interpretive Statements SINUS RHYTHM WITH SINUS ARRHYTHMIA Compared to ECG 05/05/2021 08:38:43 ST (T wave) deviation no longer present Electronically Signed On 05-11-2021 0:42:54 CDT by Mary Recinos M.D. [id number]
[2021-05-05 11:25] LABS: Troponin 5 2HR Delta 0 ABS# (0-10)
[2021-05-05 11:41] LABS: Add Urine Microscopic? NO; Charge for UA Resulting for Rev
[2021-05-05 11:49] LABS: Bilirubin Urine Neg (Negative); Blood Urine Neg (Negative); Glucose Urine UA Norm (Normal); Ketones Urine 1+ (Negative); Leukocyte Esterase Urine Negative (Negative); Nitrate Urine Negative (Negative); Protein Urine Neg (Negative); Specific Gravity, Urine 1.005 (1.005-1.030); Urine Appearance Clear (CLEAR); Urine Color Yellow (Yellow); Urobilinogen Urine Norm (Negative); pH Urine 7 (5-7)
--- NOTE | 2021-05-05 14:49 | ECG_ITS ---
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 Measurements Intervals [place] Rate: 147 P: 84 ID: [id number] QRS: 83 QRSD: 69 T: 65 QT: 290 QTc: 455 Interpretive Statements SINUS TACHYCARDIA MODERATE ST DEPRESSION [0.05+ mV ST DEPRESSION] Compared to ECG 11/13/2017 16:45:06 ST (T wave) deviation now present Sinus rhythm no longer present Electronically Signed On 05-21-2021 10:12:53 CDT by Mary Recinos M.D. [id number]
== END 2021-05-05 13:08 | disposition home or self-care (01) ==
PROVIDERS: Physician Assistant; Emergency Provider Emergency Medicine; PCP Family Medicine
DX: R07.89 Other chest pain (principal)
CPT/HCPCS: 71045; 80053; 81003; 83880; 84484; 85025; 85378; 85610; 85730; 93005; 96361; 96374; 96375; 99284; J1885; J2270; J2405; J7040

== ENCOUNTER → 2021-05-25 07:31 | Outpatient (BNVA) | payer MEDICAID, SELFPAY | PROVIDERS: PCP Family Medicine; Visit Provider Nurse Practitioner | DX: F41.1 Generalized anxiety disorder (principal); F33.1 Major depressive disorder, recurrent, moderate | CPT/HCPCS: 99214 ==

== ENCOUNTER 2021-07-02 08:37 | Emergency (ER) | payer MEDICAID, SELFPAY ==
[2021-07-02 08:42] VITALS: BP 125/80; PULSE 84; RESP 16; TEMP 36.7; O2SAT 98; BMI 19.9
[2021-07-02 08:44] LABS: Glucose Point of Care 95 mg/dL (70-110)
--- NOTE | 2021-07-02 08:51 | ECG_ITS ---
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 Measurements Intervals [place] Rate: 74 P: 72 IA: 159 QRS: 76 QRSD: 79 T: 69 QT: 396 QTc: 440 Interpretive Statements SINUS RHYTHM WITH SINUS ARRHYTHMIA Compared to ECG 05/05/2021 11:00:59 No significant changes Electronically Signed On 07-02-2021 20:34:04 CDT by Monica Cortez M.D. [email or web address] [email or web address] [email or web address]/store/[id number] f
[2021-07-02 08:57] VITALS: BP 125/80; PULSE 92; RESP 16; O2SAT 99
--- NOTE | 2021-07-02 09:02 | W.ED.SYNCOPE ---
HPI - Syncope General: Chief Complaint: Syncope Stated Complaint: Passed out in workplace hallway Time Seen by Provider: 07/02/21 08:39 History of Present Illness: HPI narrative: 35-year-old female presents emergency room with a complaint of lightheadedness and dizziness. 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 She had no chest pain no shortness of breath. She feels extremely weak now she did have a sensation of palpitations. She states that she has a history of SVT although she is not on anything for rate control. She states she recently had an event monitor on for 1 month, has not heard the results of that back. Holter monitor event reports reviewed on the chart there is sinus tachycardia and sinus arrhythmia, no significant arrhythmias noted. MD complaint: felt faint and almost passed out Onset (ago): minute(s) Prodromal symptoms: lightheaded and palpitations Context: standing up Injuries sustained associated with event: none Associated symptoms: Deny abdominal pain, chest pain, fever(s), headache(s), lightheadedness, nausea, short of breath, vertigo or weakness Treatments prior to arrival: none Review of Systems Const: Denies: fever(s) ENMT: Denies: throat pain, ear or mastoid pain, nasal discharge or nasal congestion Card: Denies: chest pain or lightheadedness Resp: Denies: dyspnea, productive cough or non-productive cough GI: Denies: abdominal pain or nausea : Denies: flank pain, difficulty voiding, dysuria, urinary frequency or urinary urgency Skin/Breast: Denies: rash or pruritus Neuro: Denies: headache(s) or vertigo PFSH ED PFSH: Medical History (Updated 07/02/21 @ 11:21 by Manjinder Stallworth DO) Generalized anxiety disorder Major depressive disorder, recurrent, moderate Social History Smoking and tobacco status: never smoked Physical Exam Const: COMMON NORMALS: no acute distress GENERAL APPEARANCE: cooperative and comfortable ORIENTATION/CONSCIOUSNESS: Yes awake, Yes oriented to person, Yes oriented to place and Yes oriented to time HENMT: COMMON NORMALS: normocephalic, atraumatic and hearing grossly normal bilaterally HEAD & SCALP: normocephalic and atraumatic Neck/C-Spine: COMMON NORMALS: no JVD Resp: COMMON NORMALS: normal respiratory effort, No retractions, No use of accessory muscles and clear to auscultation bilaterally AUSCULTATION: clear to auscultation bilaterally Cardio: COMMON NORMALS: no JVD, regular rate, regular rhythm and No murmurs present (Cardio) RATE: regular rate RHYTHM: regular rhythm GI: COMMON NORMALS: Soft to palpation and No hepatosplenomegaly present AUSCULTATION: Yes normoactive bowel sounds PALPATION: Yes Soft to palpation, No Tenderness to palpation present (GI), No Guarding due to palpation present (GI) and Yes No hepatosplenomegaly present Extremity: COMMON NORMALS: normal to inspection, capillary refill normal, no clubbing, cyanosis or edema, no calf tenderness and no pedal edema Neuro: SENSORIUM/ORIENTATION: Yes oriented to person, Yes oriented to place and Yes oriented to time Skin: COMMON NORMALS: no rashes or lesions noted GENERAL SKIN EXAM: no rashes or lesions noted Course Vital Signs: Vital signs: Vital Signs Temperature 98.1 F 07/02/21 08:42 Pulse Rate 78 07/02/21 11:39 Respiratory Rate 18 07/02/21 11:39 Blood Pressure 128/64 07/02/21 11:39 Pulse Oximetry 98 07/02/21 11:39 MDM - Syncope MDM Narrative: Medical decision making narrative: Patient is already had a pretty extensive work-up reviewed labs imaging EKG done on chart today. Also reviewed multiple event monitor reports L show sinus tachycardia sinus arrhythmia no definitive arrhythmias. Leg most of her issue is orthostatic hypotension some of it may be due to her slight body habitus. Some of it may be due to secondary to medications i.e. the clonazepam. We will go ahead and discharge home for now recommend she not return to work today we will get her set up to see cardiology for further evaluation. Return to the emergency room she has further problems. Lab Data: Labs: Lab Results 07/02/21 07/02/21 07/02/21 08:41 09:35 09:35 WBC Cancelled Corrected WBC Cancelled RBC Cancelled Hgb Cancelled Hct Cancelled MCV Cancelled MCH Cancelled MCHC Cancelled RDW Cancelled Plt Count Cancelled MPV Cancelled Gran % Cancelled Neut % (Auto) Cancelled Lymph % (Auto) Cancelled Baxter % (Auto) Cancelled Eos % (Auto) Cancelled Baso % (Auto) Cancelled Neut # (Auto) Cancelled Lymph # (Auto) Cancelled Baxter # (Auto) Cancelled Eos # (Auto) Cancelled Baso # (Auto) Cancelled Absolute Gran (aut o) Cancelled Nucleated RBC % (a uto) Cancelled Nucleated RBCs # Cancelled Sodium Cancelled Potassium Cancelled Chloride Cancelled Carbon Dioxide Cancelled Anion Gap Cancelled BUN Cancelled Creatinine Cancelled GFR Calculation Cancelled Glucose Cancelled POC Glucose 95 mg/dL mg/dL (70-110) Calculated Osmolal ity Cancelled Calcium Cancelled Total Bilirubin Cancelled AST Cancelled ALT Cancelled Alkaline Phosphata se Cancelled Total Protein Cancelled Albumin Cancelled Globulin Cancelled TSH Cancelled Free T4 Cancelled HCG, Qual Urine Color Urine Appearance Urine pH Ur Specific Gravit y Urine Protein Urine Glucose (UA) Urine Ketones Urine Blood Urine Nitrate Urine Bilirubin Urine Urobilinogen Ur Leukocyte Sridevi ase 07/02/21 07/02/21 07/02/21 09:35 09:35 10:05 WBC Corrected WBC RBC Hgb Hct MCV MCH MCHC RDW Plt Count MPV Gran % Neut % (Auto) Lymph % (Auto) Baxter % (Auto) Eos % (Auto) Baso % (Auto) Neut # (Auto) Lymph # (Auto) Baxter # (Auto) Eos # (Auto) Baso # (Auto) Absolute Gran (aut o) Nucleated RBC % (a uto) Nucleated RBCs # Sodium Potassium Chloride Carbon Dioxide Anion Gap BUN Creatinine GFR Calculation Glucose POC Glucose Calculated Osmolal ity Calcium Total Bilirubin AST ALT Alkaline Phosphata se Total Protein Albumin Globulin TSH Free T4 HCG, Qual Cancelled Negative (Negative) Urine Color Colorless (Yellow) Urine Appearance Clear (CLEAR) Urine pH 7 (5-7) Ur Specific Gravit y 1.005 (1.005-1.030) Urine Protein Neg (Negative) Urine Glucose (UA) Norm (Normal) Urine Ketones Negative (Negative) Urine Blood Neg (Negative) Urine Nitrate Negative (Negative) Urine Bilirubin Neg (Negative) Urine Urobilinogen Norm mg/dL mg/dL (Negative) Ur Leukocyte Sridevi ase Negative (Negative) 07/02/21 07/02/21 07/02/21 10:08 10:08 10:08 WBC 6.1 10^3/uL 10^3/ uL (4.0-10.0) Corrected WBC RBC 4.49 10^6/uL 10^6 /uL (4.1-5.3) Hgb 13.5 g/dL g/dL (11.5-15.3) Hct 40.3 % % (37.0-47.0) MCV 89.8 fl fl (81-99) MCH 30.1 pg pg (28.0-34.0) MCHC 33.5 g/dL g/dL (30.0-36.0) RDW 12.3 % % (12.1-15.1) Plt Count 289 10^3/cmm 10^3 /cmm (130-400) MPV 9.7 fL fL (7.4-10.4) Gran % Neut % (Auto) 62.9 % % Lymph % (Auto) 29.7 % % Baxter % (Auto) 5.6 % % Eos % (Auto) 0.8 % % Baso % (Auto) 0.7 % % Neut # (Auto) 3.82 10^3/uL 10^3 /uL (1.8-7.7) Lymph # (Auto) 1.8 10^3/uL 10^3/ uL (0.8-4.8) Baxter # (Auto) 0.3 10^3/uL 10^3/ uL (0.2-0.9) Eos # (Auto) 0.1 10^3/uL 10^3/ uL (0.0-0.8) Baso # (Auto) 0.0 10^3/uL 10^3/ uL (0.0-0.1) Absolute Gran (aut o) Nucleated RBC % (a uto) 0 % % Nucleated RBCs # 0.0 /100WBC /100W BC Sodium 141 mmol/L mmol/L (136-145) Potassium 3.5 mmol/L mmol/L (3.5-5.1) Chloride 106 mmol/L mmol/L (98-107) Carbon Dioxide 24 mmol/L mmol/L (22-29) Anion Gap 14.5 (5-19) BUN 3 mg/dL L mg/dL (6-20) Creatinine 0.6 mg/dL mg/dL (0.5-0.9) GFR Calculation 112.5 mL/min mL/m in (90-130) Glucose 89 mg/dL mg/dL (65-115) POC Glucose Calculated Osmolal ity 288 mOsm/kg mOsm/ kg (285-295) Calcium 8.6 mg/dL mg/dL (8.5-10.5) Total Bilirubin 0.6 mg/dL mg/dL (0.15-1.2) AST 24 U/L U/L (0-32) ALT 16 U/L U/L (0-33) Alkaline Phosphata se 47 IU/L IU/L (35-105) Total Protein 5.8 g/dL L g/dL (6.6-8.7) Albumin 3.9 g/dL g/dL (3.5-5.2) Globulin 1.9 g/dL g/dL (1.3-4.6) TSH 1.23 uIU/mL uIU/m L (0.27-4.20) Free T4 1.21 ng/dL ng/dL (0.82-1.77) HCG, Qual Cancelled Urine Color Urine Appearance Urine pH Ur Specific Gravit y Urine Protein Urine Glucose (UA) Urine Ketones Urine Blood Urine Nitrate Urine Bilirubin Urine Urobilinogen Ur Leukocyte Sridevi ase Discharge Plan Discharge Patient Disposition: Home Clinical Impression: Syncope due to orthostatic hypotension Condition: Stable Prescriptions: No Action clonazepam 0.5 mg tablet 0.5 mg PO TID PRN (Reason: anxiety) Qty: 90 RF: 2 Advil 200 mg Tablet 800 mg PO Q4H PRN (Reason: Pain) RF: 0 Discharge Orders: Discharge ED (Routine); Ordered 07/02/21 Ordered By: Manjinder Stallworth Referrals: Romel Mckeon MD [Primary Care Provider] - Patient Instructions: Opioid Safety Activity Restrictions/Additional Instructions: Case management will assist in making arrangements for you to see the supervisor spring up. 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
[2021-07-02 09:15] VITALS: BP 109/80; BP 115/80; BP 126/80; PULSE 112; PULSE 114; PULSE 135
[2021-07-02] MEDS: sodium chloride 0.9% 1,000 ML 999 ML IV (09:30)
[2021-07-02] MEDS: ondansetron 2 mg/ML SDV 2 mL 4 MG IVP (09:30)
--- NOTE | 2021-07-02 09:39 | PC.PHAR ---
pt states she takes care of her own medications-pt states she didnt start the prozac filled on 05/25/21 30d/s pt states she picked it up but didnt take-pt states she hasnt taken in 2 months or so
[2021-07-02 09:43] LABS: Add Urine Microscopic? NO; Charge for UA Resulting for Rev
[2021-07-02 10:04] LABS: Bilirubin Urine Neg (Negative); Blood Urine Neg (Negative); Glucose Urine UA Norm (Normal); Ketones Urine Negative (Negative); Leukocyte Esterase Urine Negative (Negative); Nitrate Urine Negative (Negative); Protein Urine Neg (Negative); Specific Gravity, Urine 1.005 (1.005-1.030); Urine Appearance Clear (CLEAR); Urine Color Colorless (Yellow); Urobilinogen Urine Norm (Negative); pH Urine 7 (5-7)
[2021-07-02] MEDS: ketorolac 30 mg/mL INJ IVP (10:12)
[2021-07-02 10:16] LABS: Basophils % 0.7 %; Eosinophils # 0.1 10^3/uL (0.0-0.8); Eosinophils % 0.8 %; Hematocrit 40.3 % (37.0-47.0); Hemoglobin 13.5 g/dL (11.5-15.3); Lymphocytes # 1.8 10^3/uL (0.8-4.8); Lymphocytes % 29.7 %; Mean Corpuscular HGB Conc 33.5 g/dL (30.0-36.0); Mean Corpuscular Hemoglobin 30.1 pg (28.0-34.0); Mean Corpuscular Volume 89.8 fl (81-99); Mean Platelet Volume 9.7 fL (7.4-10.4); Monocytes # 0.3 10^3/uL (0.2-0.9); Monocytes % 5.6 %; Neutrophils # 3.82 10^3/uL (1.8-7.7); Neutrophils % 62.9 %; Nucleated Red Blood Cells % 0 %; Platelet Count 289 10^3/cmm (130-400); Red Blood Count 4.49 10^6/uL (4.1-5.3); Red Cell Distribution Width 12.3 % (12.1-15.1); White Blood Count 6.1 10^3/uL (4.0-10.0)
[2021-07-02 10:36] LABS: HCG, Serum Qual Negative (Negative)
[2021-07-02 10:54] VITALS: BP 110/73; PULSE 84; RESP 18; O2SAT 99
[2021-07-02 10:57] LABS: Alanine Aminotransferase 16 U/L (0-33); Albumin Level 3.9 g/dL (3.5-5.2); Alkaline Phosphatase 47 IU/L (35-105); Anion Gap 14.5 (5-19); Aspartate Amino Transferase 24 U/L (0-32); Blood Urea Nitrogen 3 mg/dL (6-20); Calcium 8.6 mg/dL (8.5-10.5); Carbon Dioxide 24 mmol/L (22-29); Chloride 106 mmol/L (98-107); Globulin 1.9 g/dL (1.3-4.6); Glomerular Filtration Rate 112.5 mL/min (90-130); Glucose 89 mg/dL (65-115); Osmolality Calculated 288 mOsm/kg (285-295); Potassium 3.5 mmol/L (3.5-5.1); Sodium 141 mmol/L (136-145); Thyroid Stimulating Hormone 1.23 uIU/mL (0.27-4.20); Total Bilirubin 0.6 mg/dL (0.15-1.2); Total Protein 5.8 g/dL (6.6-8.7)
--- NOTE | 2021-07-02 11:37 | DCPLANNER ---
Addendum entered by Marcia Serrano 10/30/21 11:36: Patient had a follow up appointment scheduled for 07.15.21 with [facility] - patient did not attend appointment. Original Note: manager inventory management had message to schedule a follow up appointment for patient with [facility]. manager inventory management called [facility], spoke with Dipika, gave clinic patients information. A follow up appointment was scheduled for Tuesday, July 15, 2021 at 10:[address] Cortez. manager inventory management gave clinic patients information.
[2021-07-02 11:38] LABS: Free T4 Free Thyroxine 1.21 ng/dL (0.82-1.77)
[2021-07-02 11:39] VITALS: BP 128/64; PULSE 78; RESP 18; O2SAT 98
== END 2021-07-02 11:39 | disposition home or self-care (01) ==
PROVIDERS: Emergency Provider Family Medicine; PCP Family Medicine
DX: I95.1 Orthostatic hypotension (principal)
CPT/HCPCS: 36415; 36416; 80053; 81003; 82962; 84439; 84443; 84703; 85025; 93005; 96361; 96374; 96375; 99284; 99291; J1885; J2405; J7030

== ENCOUNTER 2021-07-06 12:29 | Emergency (ER) | payer MEDICAID, SELFPAY ==
[2021-07-06 12:35] VITALS: BP 121/80; PULSE 101; RESP 20; TEMP 37.1; O2SAT 98; BMI 19.9
--- NOTE | 2021-07-06 12:41 | CT_ITS ---
WS: [id number] CT HEAD NONCONTRAST HISTORY: syncope TECHNIQUE: Contiguous axial imaging performed through the brain in 2.5 mm imaging. Bone and soft tiss ue windows. Sagittal and coronal reformats reviewed. All CT scans at [facility] use at least one of these dose optimization techniques: automated exposure control; mA and/or kV adjustment per pa tient size (includes targeted exams where dose is matched to clinical indication); or iterative recon struction. DLP: 802.37 mGy.cm COMPARISON: None available. No acute intracranial hemorrhage, midline shift or mass effect. No atrophy or prior infarcts or herniation. Tiny lacunar infarct is noted within the anterior limb o f the RIGHT internal capsule. Ventricles: Normal size with no hydrocephalus. Paranasal sinuses: As visualized are clear. Mastoid air cells: Well pneumatized. Calvarium and scalp: Skull is intact with no soft tissue edema or swelling. CT/CT head wo con* [id number] IMPRESSION: 1. No acute intracranial hemorrhage or edema. 2. Remote tiny lacunar infarct anterior limb RIGHT internal capsule.
--- NOTE | 2021-07-06 12:42 | XR_ITS ---
WS: [id number] Exam: XR chest 2V* [id number] Date/Time of Exam: 07/06/2021 12:42 PM Reason For Exam: syncope Comparison 05/05/2021. Findings: The lungs are clear and fully expanded. Costophrenic angles are sharp. No infiltrates. Bronchovascula r relief appears normal. Cardiac silhouette is unremarkable. Bony elements are intact. XR/XR chest 2V* [id number] IMPRESSION: Unremarkable chest radiograph.
--- NOTE | 2021-07-06 12:42 | ECG_ITS ---
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 Measurements Intervals [place] Rate: 98 P: 67 VT: 165 QRS: 67 QRSD: 75 T: 58 QT: 346 QTc: 443 Interpretive Statements SINUS RHYTHM POSSIBLE LEFT ATRIAL ENLARGEMENT [-0.1mV P-WAVE IN V1/V2] Compared to ECG 07/02/2021 08:51:37 Sinus arrhythmia no longer present Electronically Signed On 07-06-2021 22:11:06 CDT by Froilan Flores M.D. [id number]
--- NOTE | 2021-07-06 12:44 | ED_ITS ---
HPI - Syncope General: Chief Complaint: Syncope Stated Complaint: Passed out Time Seen by Provider: 07/06/21 12:31 History of Present Illness: HPI narrative: 35-year-old female presents to to [facility] after syncopal episode. States that she had sensation room spinning around her, fell to the floor, hit her right forehead. States that approximately 4 days ago she was in the emergency department for lightheadedness and presyncopal episode. At that time no acute abnormality was found. States she has a history of SVT but is not on any rate control medications. States that recently she had a prolonged Holter monitor and was not found to have any arrhythmic episodes. She is due for follow-up with cardiology. Does report sensation of vertigo and nausea but no vomiting. Denies any chest pain or shortness of breath during the episodes. States they are worse with turning of the head. Review of Systems Narrative: - CONSTITUTIONAL: Denies weight loss, fever and chills. - HEENT: Denies changes in vision and hearing. - RESPIRATORY: Denies SOB and cough. - CV: As above - GI: Denies abdominal pain, nausea, vomiting and diarrhea. - : Denies dysuria and urinary frequency. - MSK: Denies myalgia and joint pain. - SKIN: Denies rash and pruritus. - NEUROLOGICAL: As above - PSYCHIATRIC: Denies suicidal ideation [facility] ED [facility]: Medical History (Updated 07/02/21 @ 11:21 by Manjinder Stallworth DO) Generalized anxiety disorder Major depressive disorder, recurrent, moderate Social History Smoking and tobacco status: never smoked Physical Exam Narrative: EXAM NARRATIVE: - GENERAL: Alert and oriented x 3. No acute distress. Well-nourished. - EYES: EOMI. Anicteric. - HENT: Small bruise on right forehead, no sign of basilar skull fracture, no nasal septal hematoma, no bony ligamentous laxity, no C-spine tenderness. Moist mucous membranes. No scleral icterus. No cervical lymphadenopathy. - LUNGS: Clear to auscultation bilaterally. No accessory muscle use. Equal lung sounds bilaterally. No respiratory distress. - CARDIOVASCULAR: Regular rate and rhythm. No murmur. No JVD. - ABDOMEN: Soft, non-tender and non-distended. Negative CVA tenderness bilaterally, no rebound or guarding, negative Ceja sign. No palpable masses. - EXTREMITIES: No edema. Non-tender. - SKIN: No rashes or lesions. Warm. - NEUROLOGIC: Positive Kismet-Hallpike, negative hints exam except for elicitation of nystagmus on head impulse test, no meningismus or focal neurological deficits. CN II-XII grossly intact. - PSYCHIATRIC: Cooperative. Appropriate mood and affect. Course Vital Signs: Vital signs: Vital Signs Temperature 98.8 F 07/06/21 12:35 Pulse Rate 86 07/06/21 14:51 Respiratory Rate 18 07/06/21 14:51 Blood Pressure 102/71 07/06/21 14:51 Pulse Oximetry 100 07/06/21 14:51 MDM - Syncope MDM Narrative: Medical decision making narrative: 35-year-old female presents after syncopal episodes. By review of her record she has had an extensive cardiac work-up including long-term Holter monitoring without any signs of arrhythmia. Did sustain head injury due to the syncopal episode CT scan of the head does not reveal any intracranial hemorrhage but does reveal a possible remote lacunar infarct. Discussed with neurology and at this time indicates she would be safe for outpatient follow-up and do not recommend admission. Will refer patient for outpatient EEG and have him follow-up with neurology. In addition patient has inducible nystagmus. Improved with meclizine prescription for meclizine provided. EKG does not reveal any sign of ischemia or arrhythmia or other acute abnormality and remainder of lab work is unremarkable. At this time I believe patient would be safe for discharge and outpatient follow-up. Return precautions provided. Plan was reviewed with the patient who expressed understanding. Questions answered. Patient will follow up with neurology and PCP. Patient discharged in stable condition. Lab Data: Labs: Lab Results 07/06/21 07/06/21 07/06/21 13:25 13:25 13:25 WBC 6.5 10^3/uL 10^3/ uL (4.0-10.0) RBC 4.76 10^6/uL 10^6 /uL (4.1-5.3) Hgb 14.3 g/dL g/dL (11.5-15.3) Hct 42.3 % % (37.0-47.0) MCV 88.9 fl fl (81-99) MCH 30.0 pg pg (28.0-34.0) MCHC 33.8 g/dL g/dL (30.0-36.0) RDW 11.9 % L % (12.1-15.1) Plt Count 272 10^3/cmm 10^3 /cmm (130-400) MPV 9.6 fL fL (7.4-10.4) Neut % (Auto) 58.0 % % Lymph % (Auto) 34.9 % % [place] % (Auto) 5.2 % % Eos % (Auto) 0.8 % % Baso % (Auto) 0.9 % % Neut # (Auto) 3.80 10^3/uL 10^3 /uL (1.8-7.7) Lymph # (Auto) 2.3 10^3/uL 10^3/ uL (0.8-4.8) [place] # (Auto) 0.3 10^3/uL 10^3/ uL (0.2-0.9) Eos # (Auto) 0.1 10^3/uL 10^3/ uL (0.0-0.8) Baso # (Auto) 0.1 10^3/uL 10^3/ uL (0.0-0.1) Nucleated RBC % (a uto) 0 % % Nucleated RBCs # 0.0 /100WBC /100W BC Sodium 137 mmol/L mmol/L (136-145) Potassium 3.6 mmol/L mmol/L (3.5-5.1) Chloride 101 mmol/L mmol/L (98-107) Carbon Dioxide 26 mmol/L mmol/L (22-29) Anion Gap 13.6 (5-19) BUN 6 mg/dL mg/dL (6-20) Creatinine 0.6 mg/dL mg/dL (0.5-0.9) GFR Calculation 112.5 mL/min mL/m in (90-130) Glucose 162 mg/dL H mg/dL (65-115) POC Glucose Calculated Osmolal ity 285 mOsm/kg mOsm/ kg (285-295) Calcium 9.1 mg/dL mg/dL (8.5-10.5) Magnesium 2.4 mg/dL H mg/dL (1.7-2.3) Total Bilirubin 0.7 mg/dL mg/dL (0.15-1.2) AST 19 U/L U/L (0-32) ALT 13 U/L U/L (0-33) Alkaline Phosphata se 49 IU/L IU/L (35-105) Troponin T Baselin e 6 ng/L ng/L (0-10) NT-Pro-B Natriuret Pep 17 pg/mL pg/mL (0-125) Total Protein 6.7 g/dL g/dL (6.6-8.7) Albumin 4.2 g/dL g/dL (3.5-5.2) Globulin 2.5 g/dL g/dL (1.3-4.6) TSH 1.39 uIU/mL uIU/m L (0.27-4.20) HCG, Qual Urine Color Urine Appearance Urine pH Ur Specific Gravit y Urine Protein Urine Glucose (UA) Urine Ketones Urine Blood Urine Nitrate Urine Bilirubin Urine Urobilinogen Ur Leukocyte Sridevi ase Urine RBC Urine WBC Ur Squamous Epith Cells Amorphous Sediment Urine Bacteria Urine Opiates Scre en Ur Barbiturates Sc reen Ur Phencyclidine S crn Ur Amphetamines Sc reen U Benzodiazepines Scrn Urine Cocaine Scre en U Marijuana (THC) Screen 07/06/21 07/06/21 07/06/21 13:28 14:35 14:35 WBC RBC Hgb Hct MCV MCH MCHC RDW Plt Count MPV Neut % (Auto) Lymph % (Auto) [place] % (Auto) Eos % (Auto) Baso % (Auto) Neut # (Auto) Lymph # (Auto) [place] # (Auto) Eos # (Auto) Baso # (Auto) Nucleated RBC % (a uto) Nucleated RBCs # Sodium Potassium Chloride Carbon Dioxide Anion Gap BUN Creatinine GFR Calculation Glucose POC Glucose 157 mg/dL H mg/dL (70-110) Calculated Osmolal ity Calcium Magnesium Total Bilirubin AST ALT Alkaline Phosphata se Troponin T Baselin e NT-Pro-B Natriuret Pep Total Protein Albumin Globulin TSH HCG, Qual Negative (Negative) Urine Color Straw (Yellow) Urine Appearance Sl cloudy A (CLEAR) Urine pH 7 (5-7) Ur Specific Gravit y 1.010 (1.005-1.030) Urine Protein Neg (Negative) Urine Glucose (UA) 2+ H (Normal) Urine Ketones Negative (Negative) Urine Blood Neg (Negative) Urine Nitrate Negative (Negative) Urine Bilirubin Neg (Negative) Urine Urobilinogen Norm mg/dL mg/dL (Negative) Ur Leukocyte Sridevi ase Negative (Negative) Urine RBC None /hpf /hpf (0-2) Urine WBC None /hpf /hpf (0-5) Ur Squamous Epith Cells None /hpf /hpf (0-5) Amorphous Sediment Not Reportable Urine Bacteria Trace /hpf /hpf (NONE) Urine Opiates Scre en Ur Barbiturates Sc reen Ur Phencyclidine S crn Ur Amphetamines Sc reen U Benzodiazepines Scrn Urine Cocaine Scre en U Marijuana (THC) Screen 07/06/21 14:35 WBC RBC Hgb Hct MCV MCH MCHC RDW Plt Count MPV Neut % (Auto) Lymph % (Auto) [place] % (Auto) Eos % (Auto) Baso % (Auto) Neut # (Auto) Lymph # (Auto) [place] # (Auto) Eos # (Auto) Baso # (Auto) Nucleated RBC % (a uto) Nucleated RBCs # Sodium Potassium Chloride Carbon Dioxide Anion Gap BUN Creatinine GFR Calculation Glucose POC Glucose Calculated Osmolal ity Calcium Magnesium Total Bilirubin AST ALT Alkaline Phosphata se Troponin T Baselin e NT-Pro-B Natriuret Pep Total Protein Albumin Globulin TSH HCG, Qual Urine Color Urine Appearance Urine pH Ur Specific Gravit y Urine Protein Urine Glucose (UA) Urine Ketones Urine Blood Urine Nitrate Urine Bilirubin Urine Urobilinogen Ur Leukocyte Sridevi ase Urine RBC Urine WBC Ur Squamous Epith Cells Amorphous Sediment Urine Bacteria Urine Opiates Scre en Negative ng/mL ng /mL (Negative) Ur Barbiturates Sc reen Negative ng/mL ng /mL (Negative) Ur Phencyclidine S crn Negative ng/mL ng /mL (Negative) Ur Amphetamines Sc reen Negative ng/mL ng /mL (Negative) U Benzodiazepines Scrn Negative ng/mL ng /mL (Negative) Urine Cocaine Scre en Negative ng/mL ng /mL (Negative) U Marijuana (THC) Screen Negative ng/mL ng /mL (Negative) EKG Data^: EKG 1: Other EKG Comments: Normal sinus rhythm, rate of 98, no signs of acute ischemia, QT prolongation, WPW, HOCM, Brugada, or other acute abnormality. 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
[2021-07-06 13:30] LABS: Glucose Point of Care 157 mg/dL (70-110)
[2021-07-06] MEDS: meclizine 25 mg tablet PO (13:38)
[2021-07-06] MEDS: acetaminophen 500 mg Tablet PO (13:38)
[2021-07-06] MEDS: sodium chloride 0.9% 1,000 ML 999 ML IV (13:38)
[2021-07-06 13:40] LABS: Basophils # 0.1 10^3/uL (0.0-0.1); Basophils % 0.9 %; Eosinophils # 0.1 10^3/uL (0.0-0.8); Eosinophils % 0.8 %; Hematocrit 42.3 % (37.0-47.0); Hemoglobin 14.3 g/dL (11.5-15.3); Lymphocytes # 2.3 10^3/uL (0.8-4.8); Lymphocytes % 34.9 %; Mean Corpuscular HGB Conc 33.8 g/dL (30.0-36.0); Mean Corpuscular Volume 88.9 fl (81-99); Mean Platelet Volume 9.6 fL (7.4-10.4); Monocytes # 0.3 10^3/uL (0.2-0.9); Monocytes % 5.2 %; Nucleated Red Blood Cells % 0 %; Platelet Count 272 10^3/cmm (130-400); Red Blood Count 4.76 10^6/uL (4.1-5.3); Red Cell Distribution Width 11.9 % (12.1-15.1); White Blood Count 6.5 10^3/uL (4.0-10.0)
[2021-07-06] MEDS: ondansetron 2 mg/ML SDV 2 mL 4 MG IVP (13:46)
[2021-07-06 13:51] VITALS: BP 110/73; PULSE 84; RESP 18; O2SAT 99
[2021-07-06 14:05] LABS: Troponin(5th) Baseline 6 ng/L (0-10)
[2021-07-06 14:09] LABS: Alanine Aminotransferase 13 U/L (0-33); Albumin Level 4.2 g/dL (3.5-5.2); Alkaline Phosphatase 49 IU/L (35-105); Anion Gap 13.6 (5-19); Aspartate Amino Transferase 19 U/L (0-32); Blood Urea Nitrogen 6 mg/dL (6-20); Calcium 9.1 mg/dL (8.5-10.5); Carbon Dioxide 26 mmol/L (22-29); Chloride 101 mmol/L (98-107); Globulin 2.5 g/dL (1.3-4.6); Glomerular Filtration Rate 112.5 mL/min (90-130); Glucose 162 mg/dL (65-115); Magnesium 2.4 mg/dL (1.7-2.3); NT Pro B Type Natriuretic Pept 17 pg/mL (0-125); Osmolality Calculated 285 mOsm/kg (285-295); Potassium 3.6 mmol/L (3.5-5.1); Sodium 137 mmol/L (136-145); Thyroid Stimulating Hormone 1.39 uIU/mL (0.27-4.20); Total Bilirubin 0.7 mg/dL (0.15-1.2); Total Protein 6.7 g/dL (6.6-8.7)
[2021-07-06 14:49] LABS: HCG Qualitative Urine. Negative (Negative)
[2021-07-06 14:51] VITALS: BP 102/71; PULSE 86; RESP 18; O2SAT 100
[2021-07-06 14:51] LABS: Urine Color Straw (Yellow)
[2021-07-06 14:52] LABS: Add Urine Microscopic? YES; Bacteria Urine TRACE /hpf; Bilirubin Urine Neg (Negative); Blood Urine Neg (Negative); Glucose Urine UA 2+ (Normal); Ketones Urine Negative (Negative); Leukocyte Esterase Urine Negative (Negative); Nitrate Urine Negative (Negative); Protein Urine Neg (Negative); Urobilinogen Urine Norm (Negative); pH Urine 7 (5-7)
[2021-07-06 14:57] LABS: Amphetamines Screen Urine Negative (Negative); Barbiturates Screen Urine Negative (Negative); Benzodiazepines Screen Urine Negative (Negative); Cocaine Screen Urine Negative (Negative); Opiate Screen Urine Negative (Negative); PCP Screen Urine Negative (Negative); THC Screen Urine Negative (Negative)
--- NOTE | 2021-07-08 14:41 | DCPLANNER ---
storage manager had message to schedule an outpatient EEG and a follow up appointment with neurology. storage manager faxed signed order to neurology for an EEG. storage manager also emailed patients information to the neurology clinic. Patients information will be printed and reviewed. Clinic will call patient with appointment information.
--- NOTE | 2021-07-09 12:27 | DCPLANNER ---
Patient had a follow up appointment scheduled for 07.07.[address] Ayala - patient did attend appointment.
--- NOTE | 2021-07-15 15:21 | DCPLANNER ---
Patient has a follow up appointment scheduled for July at 10:00. Clinic will call patient with appointment information.
--- NOTE | 2021-08-20 15:37 | DCPLANNER ---
Patient had an EEG scheduled for 07.23.21 - patient did attend appointment.
== END 2021-07-06 16:06 | disposition home or self-care (01) ==
PROVIDERS: Emergency Provider Emergency Medicine; PCP Family Medicine
DX: R55 Syncope and collapse (principal)
CPT/HCPCS: 36416; 70450; 71046; 80053; 80306; 81001; 81025; 82962; 83735; 83880; 84443; 84484; 85025; 93005; 96361; 96374; 99283; J2405; J7030; J8597

== ENCOUNTER → 2021-07-07 10:23 | Outpatient (BNVA) | payer MEDICAID, SELFPAY | PROVIDERS: PCP Family Medicine; Visit Provider Specialist | DX: I95.1 Orthostatic hypotension (principal); I47.1 Supraventricular tachycardia; G43.019 Migraine without aura, intractable, without status migrainosus | CPT/HCPCS: 99205 ==

== ENCOUNTER 2021-07-07 15:00 | Observation (INO) | payer MEDICAID, SELFPAY ==
[2021-07-07] VITALS (13 sets, daily range): BP systolic 107–149; BP diastolic 68–93; PULSE 71–112; RESP 12–28; TEMP 36.6–36.7; O2SAT 96–98; BMI 20.5; BMI 21.3
--- NOTE | 2021-07-07 15:49 | ECG_ITS ---
[facility] Test Date: 2021-07-07 Pat Name: Anayeli Herrera Department: Room: Gender: Female Angiography Nurse: : 1985 Requested By: Manjinder Burris Order Number: [id number] Reading MD: LATONIA COTA Measurements Intervals [place] Rate: 105 P: 65 NC: 153 QRS: 72 QRSD: 84 T: 55 QT: 334 QTc: 442 Interpretive Statements SINUS TACHYCARDIA LEFT ATRIAL ENLARGEMENT [-0.15mV P-WAVE IN V1/V2] Compared to ECG 07/06/2021 13:19:27 Sinus rhythm no longer present Electronically Signed On 07-07-2021 20:02:52 CDT by LATONIA COTA [email or web address] mississippi state hospitalSedia Biosciencescleveland clinic [facility].[place]/store/NU/[id number] f
[2021-07-07 15:54] LABS: Basophils # 0.1 10^3/uL (0.0-0.1); Basophils % 0.9 %; Eosinophils # 0.1 10^3/uL (0.0-0.8); Hematocrit 42.9 % (37.0-47.0); Lymphocytes # 2.9 10^3/uL (0.8-4.8); Lymphocytes % 36.3 %; Mean Corpuscular Hemoglobin 30.1 pg (28.0-34.0); Mean Platelet Volume 9.7 fL (7.4-10.4); Monocytes # 0.6 10^3/uL (0.2-0.9); Monocytes % 7.1 %; Neutrophils # 4.34 10^3/uL (1.8-7.7); Neutrophils % 54.6 %; Nucleated Red Blood Cells % 0 %; Platelet Count 289 10^3/cmm (130-400); Red Blood Count 4.99 10^6/uL (4.1-5.3); Red Cell Distribution Width 11.9 % (12.1-15.1); White Blood Count 7.9 10^3/uL (4.0-10.0)
--- NOTE | 2021-07-07 16:06 | PC.PHAR ---
PT STATES SHE TAKES CARE OF HER OWN MEDICATIONS-PT STATES SHE USUALLY TAKES CLONAZEPAM 0.5MG BID RX FILLED ON 06/29/21 30D/S FOR 0.5MG TID PRN-
--- NOTE | 2021-07-07 16:10 | ED_ITS ---
HPI - General Adult General: Chief complaint: General Medical Stated complaint: HIGH HR Time Seen by Provider: 07/07/21 15:36 History of Present Illness: HPI narrative: 35-year-old female presents emergency room with complaints of lightheadedness and dizziness. We seen her late last week she had a similar episode she was monitored for a time orthostatics were okay we discharge her home. We will have her follow-up with cardiology. She had seen them previously and had a Holter monitor in place which had a series of episodes of sinus arrhythmia but no significant arrhythmia such as A. fib or SVT. Her orthostatics were asymptomatic after fluids and she was discharged home with instruction to follow-up with cardiology. She returned to the ER yesterday and was reevaluated was thought to have a labyrinthitis and was discharged home on meclizine with follow-up to neurology. When she went to the neurology clinic today when standing she was noted to have an elevated heart rate Dr. Ayala called and reported that she had evaluated her with a heart rate of near 200 in the emergency room it resolved when she sat down or at very least improved however she remains somewhat symptomatic. She was directed to come to the ER but instead drove to a interview. She then returned to the ER to be evaluated on arrival here triage found her to be tachycardic when sitting or standing which was repeated at the bedside and I examined her. She also became lightheaded dizzy had some chest discomfort when she was sitting and standing it resolved when she laid down. Onset (ago): month(s) Location: chest Severity: severe Pain Consistency: intermittent Relieving factors: rest Associated symptoms: Reports chest pain, headache(s) and nausea; Deny confusion, cough, diaphoresis, decreased appetite, dyspnea, fevers/chills, malaise, rash, palpitations, seizures, short of breath, syncope, vomiting or weakness Review of Systems Const: Denies: malaise or diaphoresis ENMT: Denies: throat pain, ear or mastoid pain, nasal discharge or nasal congestion Card: Reports: chest pain; Denies: palpitations or syncope Resp: Denies: dyspnea GI: Reports: nausea; Denies: vomiting : Denies: flank pain, difficulty voiding, dysuria, urinary frequency or urinary urgency Skin/Breast: Denies: rash Neuro: Reports: headache(s); Denies: confusion PFSH ED PFSH: Medical History (Updated 07/13/21 @ 07:21 by Manjinder Stallworth DO) Generalized anxiety disorder Major depressive disorder, recurrent, moderate Social History Smoking and tobacco status: never smoked History of recent travel: No Physical Exam Const: COMMON NORMALS: no acute distress GENERAL APPEARANCE: cooperative and comfortable ORIENTATION/CONSCIOUSNESS: Yes awake, Yes oriented to person, Yes oriented to place and Yes oriented to time HENMT: COMMON NORMALS: normocephalic, atraumatic and hearing grossly normal bilaterally HEAD & SCALP: normocephalic and atraumatic Neck/C-Spine: COMMON NORMALS: no JVD Resp: COMMON NORMALS: normal respiratory effort, No retractions, No use of accessory muscles and clear to auscultation bilaterally AUSCULTATION: clear to auscultation bilaterally Cardio: COMMON NORMALS: no JVD, regular rate, regular rhythm and No murmurs present (Cardio) RATE: regular rate RHYTHM: regular rhythm GI: COMMON NORMALS: Soft to palpation and No hepatosplenomegaly present AUSCULTATION: Yes normoactive bowel sounds PALPATION: Yes Soft to palpation, No Tenderness to palpation present (GI), No Guarding due to palpation present (GI) and Yes No hepatosplenomegaly present Extremity: COMMON NORMALS: normal to inspection, capillary refill normal, no clubbing, cyanosis or edema, no calf tenderness and no pedal edema Neuro: SENSORIUM/ORIENTATION: Yes oriented to person, Yes oriented to place and Yes oriented to time Skin: COMMON NORMALS: no rashes or lesions noted GENERAL SKIN EXAM: no rashes or lesions noted Course Vital Signs: Vital signs: Vital Signs Temperature 99.0 F 07/10/21 15:45 Pulse Rate 71 07/10/21 15:45 Respiratory Rate 16 07/10/21 15:45 Blood Pressure 96/59 07/10/21 15:45 Pulse Oximetry 97 07/10/21 15:45 MDM - General Adult MDM Narrative: Medical decision making narrative: Patient significantly tachycardic with simple postural changes. We will give her some fluids we will admit her this time to be evaluated by cardiology consideration of starting a beta-juan such as propranolol. Dr. Ayala suggested this as the patient does have migraines as well could be effective in limiting these episodes as well and being prophylactic for migraines. Lab Data: Labs: Lab Results 07/07/21 07/07/21 07/07/21 15:37 15:37 15:37 WBC 7.9 10^3/uL 10^3/ uL (4.0-10.0) RBC 4.99 10^6/uL 10^6 /uL (4.1-5.3) Hgb 15.0 g/dL g/dL (11.5-15.3) Hct 42.9 % % (37.0-47.0) MCV 86.0 fl fl (81-99) MCH 30.1 pg pg (28.0-34.0) MCHC 35.0 g/dL g/dL (30.0-36.0) RDW 11.9 % L % (12.1-15.1) Plt Count 289 10^3/cmm 10^3 /cmm (130-400) MPV 9.7 fL fL (7.4-10.4) Neut % (Auto) 54.6 % % Lymph % (Auto) 36.3 % % [place] % (Auto) 7.1 % % Eos % (Auto) 1.0 % % Baso % (Auto) 0.9 % % Neut # (Auto) 4.34 10^3/uL 10^3 /uL (1.8-7.7) Lymph # (Auto) 2.9 10^3/uL 10^3/ uL (0.8-4.8) [place] # (Auto) 0.6 10^3/uL 10^3/ uL (0.2-0.9) Eos # (Auto) 0.1 10^3/uL 10^3/ uL (0.0-0.8) Baso # (Auto) 0.1 10^3/uL 10^3/ uL (0.0-0.1) Nucleated RBC % (a uto) 0 % % Nucleated RBCs # 0.0 /100WBC /100W BC Sodium 139 mmol/L mmol/L (136-145) Potassium 3.5 mmol/L mmol/L (3.5-5.1) Chloride 104 mmol/L mmol/L (98-107) Carbon Dioxide 22 mmol/L mmol/L (22-29) Anion Gap 16.5 (5-19) BUN 5 mg/dL L mg/dL (6-20) Creatinine 0.6 mg/dL mg/dL (0.5-0.9) GFR Calculation 112.5 mL/min mL/m in (90-130) Glucose 79 mg/dL mg/dL (65-115) Calculated Osmolal ity 284 mOsm/kg L mOs m/kg (285-295) Calcium 9.5 mg/dL mg/dL (8.5-10.5) Magnesium 2.4 mg/dL H mg/dL (1.7-2.3) Total Bilirubin 0.7 mg/dL mg/dL (0.15-1.2) AST 18 U/L U/L (0-32) ALT 12 U/L U/L (0-33) Alkaline Phosphata se 46 IU/L IU/L (35-105) Troponin T Baselin e 6 ng/L ng/L (0-10) Total Protein 7.1 g/dL g/dL (6.6-8.7) Albumin 4.3 g/dL g/dL (3.5-5.2) Globulin 2.8 g/dL g/dL (1.3-4.6) Discharge Plan Discharge Patient Disposition: Admitted As Inpatient Admit Provider: Sierra Fiore Clinical Impression: Tachycardia, Migraine, Postural hypotension Condition: Stable Discharge Diet: Regular Coding Level of Care Code ED 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
[2021-07-07 16:14] LABS: Alanine Aminotransferase 12 U/L (0-33); Albumin Level 4.3 g/dL (3.5-5.2); Alkaline Phosphatase 46 IU/L (35-105); Anion Gap 16.5 (5-19); Aspartate Amino Transferase 18 U/L (0-32); Blood Urea Nitrogen 5 mg/dL (6-20); Calcium 9.5 mg/dL (8.5-10.5); Carbon Dioxide 22 mmol/L (22-29); Chloride 104 mmol/L (98-107); Globulin 2.8 g/dL (1.3-4.6); Glomerular Filtration Rate 112.5 mL/min (90-130); Glucose 79 mg/dL (65-115); Magnesium 2.4 mg/dL (1.7-2.3); Osmolality Calculated 284 mOsm/kg (285-295); Potassium 3.5 mmol/L (3.5-5.1); Sodium 139 mmol/L (136-145); Total Bilirubin 0.7 mg/dL (0.15-1.2); Total Protein 7.1 g/dL (6.6-8.7)
[2021-07-07 16:17] LABS: Troponin(5th) Baseline 6 ng/L (0-10)
[2021-07-07] MEDS: metoprolol tartrate 1 mg/1 mL SDV 5 mL 5 MG IVP (17:41)
--- NOTE | 2021-07-07 17:45 | PM.CONSULT ---
Providers/Reason For Consult Consulting Physician/Specialty*: WADE Cortez MD/cardiology Reason for Consult*: Patient with tachycardia/recurrent syncope Primary Care Provider: Romel Mckeon MD History of Present Illness History of Present Illness Anayeli Herrera is a 35 year old female who is presenting with complaints of tachycardia and recurrent episodes of syncope/near syncope. Ms. Fischer is known to have some form of tachyarrhythmia. Apparently she has been in her baseline state of health up until the of this month when she presented to the emergency room with an episode of syncope. According the patient, she was at work walking in the hallway. All of a sudden, she started getting dizzy and lightheaded and felt like going to pass out. She did not have any complete loss of consciousness(based on the ER records; however according the patient, she might have completely passed out since she could not recall the events immediately prior to the spell and following the spell). No bowel or bladder incontinence at that time. She was brought to the emergency room and had some basic work-up. The tests were basically unremarkable. She had a CT of the head which revealed features of possible old lacunar infarct. No significant arrhythmias are noted on the monitor. 4 days later, on the he had another episode of passing out. This time she completely passed out. This was preceded by palpitation, dizziness and some vertiginous symptoms. She hit the forehead on the floor. The symptoms very lasted for few minutes followed by the passing out spell. She has no chest pain or chest tightness prior to this event or following this event. The same also, she was evaluated in the emergency room. No significant abnormalities were noted. The EKG is done in the emergency room where unremarkable both times. Apparently by the time she reached the emergency room, most of the symptoms were gone. She had an event monitor recently which revealed episodes of sinus tachycardia associated with palpitation, dizziness/shortness of breath/near syncope. The heart rate was ranging anywhere from 100 to 175 bpm. The sinus tachycardia was comprising 31% of the total heartbeats. Today she had an appointment to see Dr. Ayala . She was complaining of dizziness and weakness and was found to have a heart rate in the 200 range with unrecordable blood pressure. Dr. Ayala contacted me at that time and discussed her condition. Recommended to do an EKG. Apparently her heart rate returned to the baseline rate before this could be done. But she was having fast heartbeat, every time when she tried to sit up or stand up. She also was complaining of severe headache and nausea. For these reasons, she is currently being evaluated and is in the process of being admitted to the hospital. I am her heart rate in the lying down position was around 100 bpm. In the sitting position it went up to 120. In the standing position, it went up to 155. She was getting simply dizzy, nauseous and was complaining of severe headache. She denies any chest pain or chest tightness. She has some amount of shortness of breath with the tach arrhythmia. She has no fever or chills. No cough. Is a history of migrainous headache as a child. She is she has been doing okay up until lately when she started having the palpitation and dizziness. He may not require any specific intervention at this point. The headache usually starts after the episode of palpitation. She had some cardiac work-up 3 years ago and was seen by a director data architecture? At [facility]. Details of this is not available. Review of Systems Narrative: CONSTITUTIONAL: No fever or chills. EYES: No blurring of vision or other visual disturbances lately. ENT: No hoarseness of voice, auditory disturbances or sore throat. CARDIOVASCULAR: History of tachyarrhythmia as mentioned above RESPIRATORY: No significant cough. GASTROINTESTINAL: No hematemesis or melena. GENITOURINARY: No dysuria or hematuria. INTEGUMENTARY: No skin rashes or history of skin cancer. NEURO: No transient ischemic attacks or amaurosis. PSYCHIATRIC: No history of psychosis or major depression. HEMATOLOGIC: No bleeding disorders or significant anemia. ENDOCRINE: No history of polyuria or polydipsia. MUSCULOSKELETAL: No recent joint pain or swelling. ALLERGY/IMMUNOLOGY: As mentioned above. Meds/Allergies Home Medications and Allergies Home Medications Medication Instructions Recorded Confirmed Last Taken Type ibuprofen [Advil] 800 mg PO Q4H PRN 07/02/21 07/07/21 07/02/21 04:30 History 800 mg meclizine 25 mg PO TID PRN #10 tab 07/06/21 07/07/21 Unknown Rx clonazepam 0.5 mg PO BID@06,20 09/07/07/21 07/07/21 06:00 History diphenhydramine HCl [Benadryl] 25 mg PO BEDTIME 07/07/21 07/07/21 Unknown History Allergies Allergy/AdvReac Type Severity Reaction Status Date / Time No Known Allergies Allergy Verified 07/07/21 16:05 PFSH Acute PFSH: Medical History (Updated 07/08/21 @ 12:07 by Sierra Fiore MD) Generalized anxiety disorder Major depressive disorder, recurrent, moderate Social History Smoking and tobacco status: never smoked History of recent travel: No Vitals/I&O/Wt Last Vital Signs Temp 98 F 07/07/21 15:15 Pulse 87 07/07/21 17:30 Resp 28 H 07/07/21 17:00 BP 108/77 07/07/21 17:30 Pulse Ox 97 07/07/21 17:30 Weight last 48 hrs Weight 105 lb Physical Exam Narrative: EXAM NARRATIVE: GENERAL: The patient is alert and oriented times three. Not in any acute distress. HEENT: No significant pallor, icterus or lymphadenopathy. The pupils are reactant to light. Oral cavity: There are no mucous membrane lesions. Funduscopic examination: The fundus is not visualized NECK: Trachea appears to be central. No masses noted. No JVD or thyromegaly appreciated. No carotid bruit. RESPIRATORY: Chest is symmetrical. No intercostals muscle retraction or any accessory muscle activation. There is no chest wall tenderness. Breath sounds are heard bilaterally. No rales or rhonchi heard. No evidence of any consolidation. BREASTS: Deferred. HEART: The PMI could not be palpated. No other palpable precordial events. The first and second heart sounds are normal. No S3. Short systolic murmur in the left sternal border. No diastolic murmurs. No pericardial rub. ABDOMEN: No vessel pulsations or distention. No tenderness. No organomegaly appreciated. No abdominal bruit. Bowel sounds are normally heard. : Deferred. RECTAL: Deferred. LYMPHATIC: No lymphadenopathy noted in the neck or groin. EXTREMITIES: No edema cyanosis. Peripheral pulses are palpable in fairly good volume and amplitude. MUSCULOSKELETAL: No acute joint deformities or swelling. SKIN: There are no significant scars or skin rash noted. NEUROPSYCHIATRIC: The patient is alert and oriented x3. Appears to be in a good mood. The higher functions are grossly within normal limits. No tremors or rigidity noted. Data Labs: Other Labs: Laboratory Last Values WBC 7.9 10^3/uL (4.0- 10.0) 07/07/21 15:37 RBC 4.99 10^6/uL (4.1 -5.3) 07/07/21 15:37 Hgb 15.0 g/dL (11.5-1 5.3) 07/07/21 15:37 Hct 42.9 % (37.0-47.0 ) 07/07/21 15:37 MCV 86.0 fl (81-99) 07/07/21 15:37 MCH 30.1 pg (28.0-34. 0) 07/07/21 15:37 MCHC 35.0 g/dL (30.0-3 6.0) 07/07/21 15:37 RDW 11.9 % (12.1-15.1 ) L 07/07/21 15:37 Plt Count 289 10^3/cmm (130 -400) 07/07/21 15:37 MPV 9.7 fL (7.4-10.4) 07/07/21 15:37 Neut % (Auto) 54.6 % 07/07/21 15:37 Lymph % (Auto) 36.3 % 07/07/21 15:37 Burke % (Auto) 7.1 % 07/07/21 15:37 Eos % (Auto) 1.0 % 07/07/21 15:37 Baso % (Auto) 0.9 % 07/07/21 15:37 Neut # (Auto) 4.34 10^3/uL (1.8 -7.7) 07/07/21 15:37 Lymph # (Auto) 2.9 10^3/uL (0.8- 4.8) 07/07/21 15:37 Burke # (Auto) 0.6 10^3/uL (0.2- 0.9) 07/07/21 15:37 Eos # (Auto) 0.1 10^3/uL (0.0- 0.8) 07/07/21 15:37 Baso # (Auto) 0.1 10^3/uL (0.0- 0.1) 07/07/21 15:37 Nucleated RBC % (a uto) 0 % 07/07/21 15:37 Nucleated RBCs # 0.0 /100WBC 07/07/21 15:37 Sodium 139 mmol/L (136-1 45) 07/07/21 15:37 Potassium 3.5 mmol/L (3.5-5 .1) 07/07/21 15:37 Chloride 104 mmol/L (98-10 7) 07/07/21 15:37 Carbon Dioxide 22 mmol/L (22-29) 07/07/21 15:37 Anion Gap 16.5 (5-19) 07/07/21 15:37 BUN 5 mg/dL (6-20) L 07/07/21 15:37 Creatinine 0.6 mg/dL (0.5-0. 9) 07/07/21 15:37 GFR Calculation 112.5 mL/min (90- 130) 07/07/21 15:37 Glucose 79 mg/dL (65-115) 07/07/21 15:37 Calculated Osmolal ity 284 mOsm/kg (285- 295) L 07/07/21 15:37 Calcium 9.5 mg/dL (8.5-10 .5) 07/07/21 15:37 Magnesium 2.4 mg/dL (1.7-2. 3) H 07/07/21 15:37 Total Bilirubin 0.7 mg/dL (0.15-1 .2) 07/07/21 15:37 AST 18 U/L (0-32) 07/07/21 15:37 ALT 12 U/L (0-33) 07/07/21 15:37 Alkaline Phosphata se 46 IU/L (35-105) 07/07/21 15:37 Troponin T Baselin e 6 ng/L (0-10) 07/07/21 15:37 Troponin T 120 Min eva 6.00 ng/L (0-10) 07/07/21 17:40 Delta Troponin T 0 ABS# (0-10) 07/07/21 17:40 Total Protein 7.1 g/dL (6.6-8.7 ) 07/07/21 15:37 Albumin 4.3 g/dL (3.5-5.2 ) 07/07/21 15:37 Globulin 2.8 g/dL (1.3-4.6 ) 07/07/21 15:37 Imaging^: Event monitor: My impression: 1. The baseline rhythm was found to be normal sinus with a heart rate of 91 bpm. Normal sinus rhythm comprised 69% of the total heartbeats. 2. The above-mentioned symptoms were found to be mostly associated with a sinus tachycardia with a heart rate ranging anywhere from 110 to 175 bpm . No significant pauses. 3. No previous similar studies, available for comparison EKG^: EKG 1: My Interpretation: The EKG showed sinus tachycardia with a rate of 105 bpm. Possible left atrial enlargement. No significant ST-T changes. A&P Assessment and plan (1) Tachycardia: Seems to have features of postural orthostatic tachycardia syndrome(POTS). I may try her on metoprolol 25 mg p.o. twice daily and also will give her a dose of IV Lopressor 5 mg now. She will be closely monitored on telemetry. Status: Acute (2) Syncope and collapse: Most likely related to the tachyarrhythmia and hypotension. She has some features of left atrial enlargement by EKG. I may go ahead and do an echocardiogram to evaluate the LV function and rule out any other pathology. Status: Acute (3) Head ache: The exact etiology of the headache is not clear. Tachycardia may be a contributing factor. This may need to be further evaluated. Status: Acute Qualifiers: Headache chronicity pattern: unspecified pattern Headache type: unspecified Intractability: not intractable Qualified Code(s): R51.9 - Headache, unspecified (4) Generalized anxiety disorder: Patient has a history of anxiety disorder. Management as per the per the primary Status: Acute Additional A&P Information Based on the patient's clinical response and the results of the above, further recommendations will be made. Thank for the opportunity to eval this patient make these recommendations Consult Attestations Medical Necessity Statement: Patient requires continued hospital stay for close monitoring and further management Coding Level of Care Code Acute Emergency Response Coordinator for [facility] Fwd History Detailed Exam Detailed Medical Decision Making High Complexity Diagnoses Tachycardia R00.0 Syncope and collapse R55 Head ache R51.9 Headache chronicity pattern: unspecified pattern Headache type: unspecified Intractability: not intractable Generalized anxiety disorder F41.1 Time Spent (min) 65
--- NOTE | 2021-07-07 17:51 | PM.HP ---
Providers/Chief Complaint Primary Care Provider: Romel Mckeon MD Chief Complaint: HIGH HR History of Present Illness Patient is a 35-year-old female with past medical history of migraines, SVT, generalized anxiety disorder, major depressive disorder, non-smoker who presented to the ER today being sent by Dr. Ayala to the ED for syncope. In the recent week and a half patient has come to the ER twice for palpitations and syncope. She was sent to neurology and there at the clinic she was having tachycardia on and off and her heart rate was noted to be 200 regular and she had no radial pulse at that time. Patient has history of migraine which could be playing a role in her symptoms. Dr. Ayala spoke to Dr. Salcedo and recommended patient to go on a beta-juan and to see Dr. Cortez. Patient states that every time she stands up she gets palpitations and has also been passing out after getting dizzy. She has been having issues with heart rate for couple years now. She states last she was walking out of the ER and passed on the way there. Yesterday she passed out again and woke up in the ER. She has numbness tingling in her hands and feet. She is always tired she is only had 2 episodes of syncope. She does not have any dizziness until he passes out. Patient denies chest pain, dyspnea, abdominal pain, urinary frequency, neck pain, rashes, headache, depression, change in vision, change in hearing, tinnitus, urinary frequency, shortness of breath. ER physician has consulted Dr. Cortez. On chart review: Patient presented to the ER on 06 July with a headache after syncopal episode. She had sensation that the room was spinning around her she fell to the floor and hit her right forehead. She stated that the spinning sensation was worse with turning of her head. CT head did not show any intracranial hemorrhage but it does reveal a possible remote lacunar infarct. This was discussed with neurology and she was referred to to neurology outpatient. There was also an outpatient EEG set up for her. In addition in the ER it was noted that she has inducible nystagmus. This improved with meclizine therefore prescription was given to her and she was discharged. patient was here on 02 July at that time she reported that she has a history of SVTs and had an event monitor on for about a month but has not heard of the results yet. Event monitor report shows sinus tachycardia sinus arrhythmia no definitive arrhythmias. Patient was given a referral to cardiology and discharged home. She was asked to come back to the ED if there are further problems. Review of Systems General: Reports: 10 or more systems reviewed and unremarkable except in HPI and below Medications/Allergies Home Medications Medication Instructions Recorded Confirmed Last Taken Type ibuprofen [Advil] 800 mg PO Q4H PRN 07/02/21 07/07/21 07/02/21 04:30 History 800 mg meclizine 25 mg PO TID PRN #10 tab 07/06/21 07/07/21 Unknown Rx clonazepam 0.5 mg PO BID@06,20 07/07/21 07/07/21 07/07/21 06:00 History diphenhydramine HCl [Benadryl] 25 mg PO BEDTIME 07/07/21 07/07/21 Unknown History Allergies Allergy/AdvReac Type Severity Reaction Status Date / Time No Known Allergies Allergy Verified 07/07/21 16:05 PFSH Acute PFSH: Medical History (Updated 07/07/21 @ 18:10 by Monica Cortez MD) Generalized anxiety disorder Major depressive disorder, recurrent, moderate Social History Smoking and tobacco status: never smoked History of recent travel: No Vitals/I&O/Wt Last Vital Signs Temp 98 F 07/07/21 15:15 Pulse 80 07/07/21 17:45 Resp 28 H 07/07/21 17:00 BP 107/79 07/07/21 17:45 Pulse Ox 97 07/07/21 17:45 Weight last 48 hrs Weight 47.627 kg Physical Exam Narrative: EXAM NARRATIVE: General: Alert oriented x3, patient seen in room 14 in the ED. HEENT: Normocephalic, atraumatic, EOMI, breathing room air Cardio: Regular rate rhythm, normal S1-S2, no murmurs rubs gallops, Respiratory: Good bilateral air entry, no wheezes no rhonchi appreciated GI: Abdomen soft, nontender, nondistended, normoactive bowel sounds present all 4 quadrants, Neuro: Cranial nerves II to XII intact, strength 5/5, sensation 5/5, no gross neurological deficit Behavior: Appropriate and cooperative Extremities: Pulses 2+, no edema, no cyanosis Skin: Visible skin intact, no rashes Data : 07/07/21 15:37 07/07/21 15:37 A&P Assessment and plan (1) Tachycardia: Patient has been having lightheadedness and tachycardia when she stands up from a sitting position. She has been seen by neurology outpatient already and at the clinic her heart rate went up to 200 which was checked with apical pulse. When she stood up from a sitting position she had no radial pulse and they were unable to obtain a blood pressure on her. Later when sitting down her blood pressure was systolic 110. She was recommended by neurology to possibly go on propanolol under a controlled setting well being monitored telemetry after seeing cardiology. She was sent back to the hospital today for admission. TSH 1.23, free T4 1.21, hCG negative, troponin negative, urine drug screen negative I will check a.m. cortisol level We will consult cardiology, Dr. Cortez. ER physician has spoken to him today. I would recommend tilt table test and will give patient an outpatient referral for it when she gets discharged We will monitor on telemetry overnight Her blood pressure systolic is 100-1 10. Will await further recommendations by cardiology before adding propanolol. Was discussed with cardiology if patient would benefit from an EP study. We will try to obtain an EKG as patient stands up from sitting position. check Echo Check orthostatic vital signs Fluids: Not indicated, patient encouraged to drink Electrolytes: Replete as needed Nutrition: Regular diet Activity: As tolerated, fall precautions Status: Acute (2) Syncope and collapse: Status: Acute Attestations Medical Necessity Statement*: Will monitor on telemetry and see cardiology. 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
[2021-07-07 18:05] LABS: Troponin 5 2HR Delta 0 ABS# (0-10)
[2021-07-07] MEDS: sodium chloride 0.9% 1,000 ML 100 ML IV (18:24)
[2021-07-07] MEDS: metoprolol tartrate 25 mg Tablet PO (20:34)
[2021-07-07] MEDS: CLONazepam 0.5 mg Tablet PO (21:11)
--- NOTE | 2021-07-07 21:49 | ECG_ITS ---
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 Measurements Intervals [place] Rate: 54 P: 57 AR: 174 QRS: 58 QRSD: 84 T: 76 QT: 428 QTc: 406 Interpretive Statements SINUS BRADYCARDIA WITH SINUS ARRHYTHMIA Nonspecific ST changes compared to ECG 07/07/2021 15:32:56 ST (T wave) deviation now present Myocardial infarct finding now present Sinus tachycardia no longer present Atrial abnormality no longer present Electronically Signed On 07-08-2021 21:45:53 CDT by Monica Cortez M.D. [email or web address]
[2021-07-08] VITALS (16 sets, daily range): BP systolic 75–104; BP diastolic 42–69; PULSE 56–80; RESP 14–20; TEMP 36.7–37.6; O2SAT 97–99
[2021-07-08] MEDS: acetaminophen 325 mg Tablet 650 MG PO ×2 (04:45→15:49)
[2021-07-08] MEDS: ondansetron 2 mg/ML SDV 2 mL 4 MG IVP (04:59)
[2021-07-08 05:32] LABS: Basophils # 0.1 10^3/uL (0.0-0.1); Basophils % 0.9 %; Eosinophils # 0.2 10^3/uL (0.0-0.8); Hematocrit 38.2 % (37.0-47.0); Hemoglobin 12.7 g/dL (11.5-15.3); Lymphocytes # 2.3 10^3/uL (0.8-4.8); Lymphocytes % 34.7 %; Mean Corpuscular HGB Conc 33.2 g/dL (30.0-36.0); Mean Corpuscular Volume 90.1 fl (81-99); Mean Platelet Volume 9.7 fL (7.4-10.4); Monocytes # 0.6 10^3/uL (0.2-0.9); Monocytes % 8.7 %; Neutrophils % 52.5 %; Nucleated Red Blood Cells % 0 %; Platelet Count 227 10^3/cmm (130-400); Red Blood Count 4.24 10^6/uL (4.1-5.3); Red Cell Distribution Width 12.2 % (12.1-15.1); White Blood Count 6.7 10^3/uL (4.0-10.0)
[2021-07-08 05:51] LABS: Anion Gap 8.8 (5-19); Blood Urea Nitrogen 10 mg/dL (6-20); Calcium 8.6 mg/dL (8.5-10.5); Carbon Dioxide 24 mmol/L (22-29); Chloride 109 mmol/L (98-107); Glomerular Filtration Rate 94.2 mL/min (90-130); Glucose 91 mg/dL (65-115); Osmolality Calculated 285 mOsm/kg (285-295); Potassium 3.8 mmol/L (3.5-5.1); Sodium 138 mmol/L (136-145)
--- NOTE | 2021-07-08 08:00 | P.PN_ITS ---
Subjective Subjective: Interval history: Seen and examined this morning. Overnight telemetry reviewed patient had few episodes of bradycardia heart rate 48-49. She received metoprolol 25 mg at night last night. Orthostatic vitals were negative. Her blood pressure this morning has been 70s over 40s. Patient is asymptomatic however. She weighs 49 kg. Patient does complain of some lightheadedness when seen. I have stopped the metoprolol for now. She has no other concerns or complaints but does state that she has a 12-year-old at home who is currently with her parents and when she does get discharged from the hospital she will be going home alone and has concerns that she might pass out or fall therefore wants to be sure that whatever medication we give her she is stable on that before she leaves. Patient states that she is no longer experiencing depression but does have anxiety. Furthermore she got this year. She takes lorazepam 0.5 twice a day. But does have an additional dose prescribed to her by her primary care doctor and states she needs it. She does state that she never really needs a third dose and only takes it twice a day. She has been taking that for quite some time but does not believe that that is the cause of her lightheadedness and tachycardia. Vitals/I&O/Wt Last Vital Signs Temp 98.5 F 07/08/21 04:00 Pulse 64 07/08/21 06:00 Resp 14 07/08/21 04:00 BP 88/53 07/08/21 04:00 Pulse Ox 97 07/08/21 04:00 07/07/21 07/08/21 07/08/21 22:59 06:59 14:59 Intake Total 1000.000 / 1000.000 Output Total 350 / 350 Balance 650.000 / 650.000 Weight last 48 hrs Weight 49.583 kg Weight 47.627 kg Physical Exam Narrative: EXAM NARRATIVE: EXAM NARRATIVE: General: Alert oriented x3, appears comfortable. HEENT: Normocephalic, atraumatic, EOMI, breathing room air Cardio: Regular rate rhythm, normal S1-S2, no murmurs rubs gallops, heart rate 70s when seen in the room. Respiratory: Good bilateral air entry, no wheezes no rhonchi appreciated GI: Abdomen soft, nontender, nondistended, normoactive bowel sounds present all 4 quadrants, Neuro: No gross neurological deficit. Behavior: Appropriate and cooperative Extremities: Pulses 2+, no edema, no cyanosis Skin: Visible skin intact, no rashes Data : 07/08/21 05:24 07/08/21 05:24 A&P Assessment and plan (1) Tachycardia: Blood pressure has been low overnight and this morning. Orthostatic vitals are negative. A.m. cortisol level is pending. Discussed case with Dr. Cortez this morning. We discussed the possibility of tilt table testing and EP referral to [place]. We will decrease her beta-juan dose from 25 twice d aily to 12.5 twice daily as long as her blood pressure tolerates. Due to low BP I will give her normal saline 1 L bolus. Continue to monitor on telemetry. TSH 1.23, free T4 1.21, hCG negative, troponin negative, urine drug screen negative Fluids: Normal saline., patient encouraged to drink Electrolytes: Replete as needed Nutrition: Regular diet Activity: As tolerated, fall precautions Status: Acute (2) Syncope and collapse: Status: Acute (3) Postural hypotension: Status: Acute Attestations Medical Necessity Statement*: Hypotension. I anticipate discharge most likely tomorrow Time Spent in Patient Care: less than 15 minutes Coding Level of Care Code Acute Genetic Physician for [facility] Diagnoses Tachycardia R00.0 Syncope and collapse R55 Postural hypotension I95.1
--- NOTE | 2021-07-08 08:42 | PC.NURSE ---
notified that pt's blood pressure was 75/42 repeat 15 min later it was 92/54. Pt states she doesn't feel well and is dizzy. Telemetry shows SR 64. Pt instructed to stay in bed. Metoprolol ordered for this AM clarified.
[2021-07-08] MEDS: sodium chloride 0.9% 1,000 ML 100 ML IV ×2 (08:50→20:55)
[2021-07-08] MEDS: sodium chloride 0.9% 1,000 ML 999 ML IV (12:11)
--- NOTE | 2021-07-08 12:29 | PC.NURSE ---
Dr. Fiore notified that pt blood pressure 70s/40s. Pt symptomatic. Orders received to give 1L bolus NS.
[2021-07-08 15:08] LABS: Vitamin B12 574 pg/mL (232-1245)
[2021-07-08 15:09] LABS: Folate Level 5.3 ng/mL (4.8-37.3)
--- NOTE | 2021-07-08 17:52 | USCV_ITS ---
Anayeli Herrera Age: 35 Gender: F : 1985 Exam Date: 07/08/2021 08:12 Ordering Phys: Manjinder Stallworth DO Technologist: Saturnino Castro [place] [facility] [place]: CHEST PAIN BP: 83 / 53 HR: 66 Rhythm: Sinus Technical Quality: Adequate MEASUREMENTS (Male / Female) Normal Values 2D ECHO LV Diastolic Diameter PLAX 3.6 cm 4.2 - 5.9 / 3.9 - 5.3 cm LV Systolic Diameter PLAX 2.3 cm IVS Diastolic Thickness 1.0 cm 0.6 - 1.0 / 0.6 - 0.9 cm IVS Systolic Thickness 1.1 cm LVPW Diastolic Thickness 0.7 cm 0.6 - 1.0 / 0.6 - 0.9 cm LVPW Systolic Thickness 1.0 cm LVOT Diameter 1.8 cm LV Ejection Fraction 2D Teich 66.8 % LV Ejection Fraction MOD 2C 72.7 % LV Ejection Fraction 2C AL 72.6 % LA Diameter 2.7 cm M-MODE Aortic Annulus Diameter 3.4 cm LA Ao Ratio MM 0.9 DOPPLER AV Peak Velocity 159.0 cm/s LVOT Peak Velocity 91.0 cm/s AV Area Cont Eq vti 1.1 cm squared AV Area Cont Eq pk 1.5 cm squared MV Area PHT 5.0 cm squared Mitral E to A Ratio 1.5 MV E' Velocity 44.5 cm/s Mitral E to MV E' Ratio 4.7 Mitral E to LV E' Lateral Ratio 4.0 Mitral E to LV E' Septal Ratio 5.7 TR Peak Velocity 151.4 cm/s TR Peak Gradient 9.2 mmHg TV Peak E Velocity 149.0 cm/s Right Atrial Pressure 3.0 mmHg Pulmonary Artery Systolic Pressu 12.2 mmHg PV Peak Velocity 82.0 cm/s FINDINGS Left Ventricle Normal left ventricular size and systolic function, EF 64 %. No regional wall motion abnormalities. Right Ventricle The right ventricle is normal in size and function. Right Atrium The right atrium is normal in size. Left Atrium The left atrium is normal in size. Mitral Valve Trace mitral valve regurgitation. Aortic Valve Structurally normal aortic valve without significant sclerosis or stenosis. There is no aortic regurgitation. Tricuspid Valve Trace tricuspid valve regurgitation. Pulmonic Valve Structurally normal pulmonic valve without significant stenosis. There is no pulmonic regurgitation. Pericardium Normal pericardium without effusion. Aorta Normal ascending aorta dimension. CONCLUSIONS Normal left ventricular size and systolic function, EF 64 %. No regional wall motion abnormalities. Normal cardiac chamber sizes. Trace of mitral and tricuspid regurgitation. No intracardiac masses. No intracardiac shunts by color flow Doppler examination There is no pericardial effusion. No previous study is available for comparison. Dr Monica Cortez MD FACC (Electronically Signed) Final Date: 08 July 2021 13:55 S
--- NOTE | 2021-07-08 18:21 | P.PN_ITS ---
Subjective Medications: Reviewed: Yes Medication Review Details: Current Medications Acetaminophen (Acetaminophen 325 Mg Tablet) 650 mg PO Q6H PRN PRN Reason: Mild/Mod Pain Or Temp >/= 101 Last Admin: 07/08/21 15:49 Dose: 650 mg Documented by: Sodium Chloride (Sodium Chloride 0.9%) 1,000 mls @ 100 mls/hr IV .Q10H SELVIN Last Admin: 07/08/21 08:50 Dose: 100 mls/hr Documented by: Ondansetron HCl (Ondansetron 2 Mg/Ml Sdv 2 Ml) 4 mg IVP Q6H PRN PRN Reason: NAUSEA AND VOMITING Last Admin: 07/08/21 04:59 Dose: 4 mg Documented by: Propranolol HCl (Propranolol 20 Mg Tablet) 10 mg PO BID@0900,2100 [facility] Vitals/I&O/Wt Last Vital Signs Temp 98.4 F 07/08/21 17:44 Pulse 64 07/08/21 17:44 Resp 19 H 07/08/21 17:44 BP 96/54 07/08/21 17:44 Pulse Ox 99 07/08/21 17:44 07/08/21 07/08/21 07/08/21 06:59 14:59 22:59 Intake Total 1000.000 / 9591.298 3838 / 1240 Output Total 350 / 350 Balance 650.000 / 511.836 4078 / 1240 Weight last 48 hrs Weight 109 lb 5 oz Weight 105 lb Physical Exam Narrative: EXAM NARRATIVE: GENERAL: The patient is alert and oriented times three. Not in any acute distress. HEENT: No significant pallor, icterus or lymphadenopathy. The pupils are reactant to light. Oral cavity: There are no mucous membrane lesions. Funduscopic examination: The fundus is not visualized NECK: Trachea appears to be central. No masses noted. No JVD or thyromegaly appreciated. No carotid bruit. RESPIRATORY: Chest is symmetrical. No intercostals muscle retraction or any accessory muscle activation. There is no chest wall tenderness. Breath sounds are heard bilaterally. No rales or rhonchi heard. No evidence of any consolidation. BREASTS: Deferred. HEART: The PMI could not be palpated. No other palpable precordial events. The first and second heart sounds are normal. No S3. Short systolic murmur in the left sternal border. No diastolic murmurs. No pericardial rub. ABDOMEN: No vessel pulsations or distention. No tenderness. No organomegaly appreciated. No abdominal bruit. Bowel sounds are normally heard. : Deferred. RECTAL: Deferred. LYMPHATIC: No lymphadenopathy noted in the neck or groin. EXTREMITIES: No edema cyanosis. Peripheral pulses are palpable in fairly good volume and amplitude. MUSCULOSKELETAL: No acute joint deformities or swelling. SKIN: There are no significant scars or skin rash noted. NEUROPSYCHIATRIC: The patient is alert and oriented x3. Appears to be in a good mood. The higher functions are grossly within normal limits. No tremors or rigidity noted. Data : 07/08/21 05:24 07/08/21 05:24 Other Labs: Laboratory Last Values WBC 6.7 10^3/uL (4.0-10.0) 07/08/21 05:24 RBC 4.24 10^6/uL (4.1-5.3) 07/08/21 05:24 Hgb 12.7 g/dL (11.5-15.3) 07/08/21 05:24 Hct 38.2 % (37.0-47.0) 07/08/21 05:24 MCV 90.1 fl (81-99) 07/08/21 05:24 MCH 30.0 pg (28.0-34.0) 07/08/21 05:24 MCHC 33.2 g/dL (30.0-36.0) D 07/08/21 05:24 RDW 12.2 % (12.1-15.1) 07/08/21 05:24 Plt Count 227 10^3/cmm (130-400) 07/08/21 05:24 MPV 9.7 fL (7.4-10.4) 07/08/21 05:24 Neut % (Auto) 52.5 % 07/08/21 05:24 Lymph % (Auto) 34.7 % 07/08/21 05:24 [place] % (Auto) 8.7 % 07/08/21 05:24 Eos % (Auto) 3.0 % 07/08/21 05:24 Baso % (Auto) 0.9 % 07/08/21 05:24 Neut # (Auto) 3.50 10^3/uL (1.8-7.7) 07/08/21 05:24 Lymph # (Auto) 2.3 10^3/uL (0.8-4.8) 07/08/21 05:24 [place] # (Auto) 0.6 10^3/uL (0.2-0.9) 07/08/21 05:24 Eos # (Auto) 0.2 10^3/uL (0.0-0.8) 07/08/21 05:24 Baso # (Auto) 0.1 10^3/uL (0.0-0.1) 07/08/21 05:24 Nucleated RBC % (auto) 0 % 07/08/21 05:24 Nucleated RBCs # 0.0 /100WBC 07/08/21 05:24 Sodium 138 mmol/L (136-145) 07/08/21 05:24 Potassium 3.8 mmol/L (3.5-5.1) 07/08/21 05:24 Chloride 109 mmol/L (98-107) H 07/08/21 05:24 Carbon Dioxide 24 mmol/L (22-29) 07/08/21 05:24 Anion Gap 8.8 (5-19) 07/08/21 05:24 BUN 10 mg/dL (6-20) 07/08/21 05:24 Creatinine 0.7 mg/dL (0.5-0.9) 07/08/21 05:24 GFR Calculation 94.2 mL/min (90-130) 07/08/21 05:24 Glucose 91 mg/dL (65-115) 07/08/21 05:24 Calculated Osmolality 285 mOsm/kg (285-295) 07/08/21 05:24 Calcium 8.6 mg/dL (8.5-10.5) 07/08/21 05:24 Magnesium 2.4 mg/dL (1.7-2.3) H 07/07/21 15:37 Total Bilirubin 0.7 mg/dL (0.15-1.2) 07/07/21 15:37 AST 18 U/L (0-32) 07/07/21 15:37 ALT 12 U/L (0-33) 07/07/21 15:37 Alkaline Phosphatase 46 IU/L (35-105) 07/07/21 15:37 Troponin T Baseline 6 ng/L (0-10) 07/07/21 15:37 Troponin T 120 Minute 6.00 ng/L (0-10) 07/07/21 17:40 Delta Troponin T 0 ABS# (0-10) 07/07/21 17:40 Total Protein 7.1 g/dL (6.6-8.7) 07/07/21 15:37 Albumin 4.3 g/dL (3.5-5.2) 07/07/21 15:37 Globulin 2.8 g/dL (1.3-4.6) 07/07/21 15:37 Vitamin B12 574 pg/mL (232-1245) 07/08/21 05:24 Folate 5.3 ng/mL (4.8-37.3) 07/08/21 05:24 Echo: My impression: Echocardiogram done today revealed Normal left ventricular size and systolic function, EF 64 %. No regional wall motion abnormalities. Normal cardiac chamber sizes. Trace of mitral and tricuspid regurgitation. No intracardiac masses. No intracardiac shunts by color flow Doppler examination There is no pericardial effusion. No previous study is available for comparison. A&P Assessment and plan (1) Tachycardia: Patient responded to the beta-juan appropriately. She continues to have dizziness and weakness and episodes of hypotension. Apparently she was found to be hypotensive even with normal blood pressure, which is unexplained.. Status: Acute (2) Syncope and collapse: Patient had echocardiogram today and was found to be unremarkable. He was found to be hypotensive even at the bed in the lying down position Status: Acute (3) Head ache: The exact etiology of the headache is not clear. Variant of migraine headache is a consideration. Status: Acute Qualifiers: Headache chronicity pattern: unspecified pattern Headache type: unspecified Intractability: not intractable Qualified Code(s): R51.9 - Headache, unspecified (4) Generalized anxiety disorder: Patient has a history of anxiety disorder. Management as per the per the primary Status: Acute Additional A&P Information Patient's episodes of hypotension even while lying down with a normal heartbeat is unexplained. She also has headache, dizziness and weakness with a normal heart rate and blood pressure. I discussed with Dr. Ayala about her current condition. A variant of migraine headache is a consideration. So it was advised to start her on propranolol 10 mg p.o. twice daily. Will be watching her clinical response to diet. If she remains stable, may be discharged home tomorrow. Will discontinue the metoprolol at this time Attestations Medical Necessity Statement*: Patient requires continued hospital stay for close monitoring and further management Coding Level of Care Code Acute Criminology Professor for Chg Fwd Diagnoses Tachycardia R00.0 Syncope and collapse R55 Head ache R51.9 Headache chronicity pattern: unspecified pattern Headache type: unspecified Intractability: not intractable Generalized anxiety disorder F41.1
--- NOTE | 2021-07-08 20:44 | PC.NURSE ---
Notified physician that patient was admitted for tachycardia, but that her pulse was currently 67bpm. Explained that her systolic blood pressure dropped in the 70s this morning and after a fluid bolus that it was still only 100/65. Physician said to hold the 2100 dose of propranolol. TORIN Blandon
[2021-07-09] VITALS (9 sets, daily range): BP systolic 87–104; BP diastolic 49–67; PULSE 57–85; RESP 16–18; TEMP 36.8–37.2; O2SAT 96–99
[2021-07-09] MEDS: sodium chloride 0.9% 250 ML 999 ML IV ×2 (00:01→06:03)
[2021-07-09] MEDS: sodium chloride 0.9% 1,000 ML 100 ML IV ×3 (05:08→22:31)
[2021-07-09] MEDS: propranolol 20 mg Tablet 10 MG PO ×2 (08:09→20:40)
--- NOTE | 2021-07-09 10:27 | PM.PN ---
Subjective Subjective: Interval history: Patient still has some dizziness and weakness even in the lying down position. Her heart rate and blood pressure seems to be in the normal range. He was given the propanolol, 10 mg yesterday-evening. He had some hypotensive episodes last night which required IV fluid administration Medications: Reviewed: Yes Medication Review Details: Current Medications Acetaminophen (Acetaminophen 325 Mg Tablet) 650 mg PO Q6H PRN PRN Reason: Mild/Mod Pain Or Temp >/= 101 Last Admin: 07/08/21 15:49 Dose: 650 mg Documented by: Sodium Chloride (Sodium Chloride 0.9%) 1,000 mls @ 100 mls/hr IV .Q10H SELVIN Last Admin: 07/09/21 05:08 Dose: 100 mls/hr Documented by: Ondansetron HCl (Ondansetron 2 Mg/Ml Sdv 2 Ml) 4 mg IVP Q6H PRN PRN Reason: NAUSEA AND VOMITING Last Admin: 07/08/21 04:59 Dose: 4 mg Documented by: Propranolol HCl (Propranolol 20 Mg Tablet) 10 mg PO BID@0900,2100 SEL[facility]IN Last Admin: 07/09/21 08:09 Dose: 10 mg Documented by: Vitals/I&O/Wt Last Vital Signs Temp 98.2 F 07/09/21 07:48 Pulse 70 07/09/21 07:48 Resp 18 07/09/21 07:48 BP 104/65 07/09/21 07:48 Pulse Ox 99 07/09/21 07:48 07/08/21 07/09/21 07/09/21 22:59 06:59 14:59 Intake Total 1000 / 2240 1790 / 4030 240 / 240 Output Total 900 / 900 Balance 100 / 1340 1790 / 3130 240 / 240 Weight last 48 hrs Weight 109 lb 5 oz Weight 105 lb Physical Exam Narrative: EXAM NARRATIVE: GENERAL: The patient is alert and oriented times three. Not in any acute distress. Looks fatigued HEENT: No significant pallor, icterus or lymphadenopathy. The pupils are reactant to light. Oral cavity: There are no mucous membrane lesions. Funduscopic examination: The fundus is not visualized NECK: Trachea appears to be central. No masses noted. No JVD or thyromegaly appreciated. No carotid bruit. RESPIRATORY: Chest is symmetrical. No intercostals muscle retraction or any accessory muscle activation. There is no chest wall tenderness. Breath sounds are heard bilaterally. No rales or rhonchi heard. No evidence of any consolidation. BREASTS: Deferred. HEART: The PMI could not be palpated. No other palpable precordial events. The first and second heart sounds are normal. No S3. Short systolic murmur in the left sternal border. No diastolic murmurs. No pericardial rub. ABDOMEN: No vessel pulsations or distention. No tenderness. No organomegaly appreciated. No abdominal bruit. Bowel sounds are normally heard. : Deferred. RECTAL: Deferred. LYMPHATIC: No lymphadenopathy noted in the neck or groin. EXTREMITIES: No edema cyanosis. Peripheral pulses are palpable in fairly good volume and amplitude. MUSCULOSKELETAL: No acute joint deformities or swelling. SKIN: There are no significant scars or skin rash noted. NEUROPSYCHIATRIC: The patient is alert and oriented x3. Appears to be in a good mood. The higher functions are grossly within normal limits. No tremors or rigidity noted. Data : 07/08/21 05:24 07/08/21 05:24 A&P Assessment and plan (1) Tachycardia: Patient responded to the beta-juan appropriately. She continues to have dizziness and weakness and episodes of hypotension. Apparently she was found to be hypotensive even with normal heart rate which is unexplained.. The morning the blood pressure and the heart rate seems to be in the normal range. However patient is dizzy, weak and fatigued Status: Acute (2) Syncope and collapse: Has not had any syncopal episode, since the hospital admission. Status: Acute (3) Head ache: The exact etiology of the headache is not clear. Variant of migraine headache is a consideration. Status: Acute Qualifiers: Headache chronicity pattern: unspecified pattern Headache type: unspecified Intractability: not intractable Qualified Code(s): R51.9 - Headache, unspecified (4) Generalized anxiety disorder: Patient has a history of anxiety disorder. Management as per the per the primary Status: Acute Additional A&P Information Patient's episodes of hypotension even while lying down with a normal heartbeat is unexplained. She also has headache, dizziness and weakness with a normal heart rate and blood pressure. Cardiac yap, she may not require any further interventions at this point. May need to look for another cause for her dizziness and weakness and the hypotension Attestations Medical Necessity Statement*: Disposition as per the primary Coding Level of Care Code Acute Trolley Coach Driver for g Fwd Diagnoses Tachycardia R00.0 Syncope and collapse R55 Head ache R51.9 Headache chronicity pattern: unspecified pattern Headache type: unspecified Intractability: not intractable Generalized anxiety disorder F41.1
[2021-07-09] MEDS: ibuprofen 800 mg tablet PO (10:37)
--- NOTE | 2021-07-09 11:07 | PC.NURSE ---
Pt ambulated around nurses stations approximately 200ft. Heart rate on telemetry showed sinus tach 110's. Pt reported being dizzy. BP once back in bed 96/56.
--- NOTE | 2021-07-09 12:00 | P.PN_ITS ---
Subjective Subjective: Interval history: Patient still has some dizziness and weakness even in the lying down position. Her heart rate and blood pressure seems to be in the normal range at the time being seen she was given the propanolol, 10 mg yesterday-evening. She still complains of a headache so I have ordered ibuprofen 800x1 for her. I discussed the possibility of migraine variant with her today. Patient did require 2 L normal saline bolus overnight for hypotension. Vitals/I&O/Wt Last Vital Signs Temp 98.5 F 07/09/21 11:47 Pulse 69 07/09/21 11:47 Resp 18 07/09/21 11:47 BP 92/54 07/09/21 11:47 Pulse Ox 97 07/09/21 11:47 07/08/21 07/09/21 07/09/21 22:59 06:59 14:59 Intake Total 1000 / 2240 1790 / 4030 240 / 240 Output Total 900 / 900 Balance 100 / 1340 1790 / 3130 240 / 240 Weight last 48 hrs Weight 49.583 kg Weight 47.627 kg Physical Exam Narrative: EXAM NARRATIVE: EXAM NARRATIVE: General: Alert oriented x3, appears comfortable. HEENT: Normocephalic, atraumatic, EOMI, breathing room air Cardio: Regular rate rhythm, normal S1-S2, no murmurs rubs gallops, heart rate 70s when seen in the room. Respiratory: Good bilateral air entry, no wheezes no rhonchi appreciated GI: Abdomen soft, nontender, nondistended, normoactive bowel sounds present all 4 quadrants, Neuro: No gross neurological deficit. Behavior: Appropriate and cooperative Extremities: Pulses 2+, no edema, no cyanosis Skin: Visible skin intact, no rashes Data : 07/08/21 05:24 07/08/21 05:24 A&P Assessment and plan (1) Tachycardia: Blood pressure has been low overnight and this morning. Orthostatic vitals are negative. A.m. cortisol level is pending. Discussed case with Dr. Cortez this morning. We discussed the possibility of tilt table testing and EP referral to [place]. Metoprolol was dc. She was started on inderal 10 mg bid. Pressure low overnight, got 2 bolus NS. Will give her ibuprofen 800 x1 and see response. Will call Dr. Ayala today to discuss. TSH 1.23, free T4 1.21, hCG negative, troponin negative, urine drug screen negative. Free cortisol was drawn at wrong time. I will re-order for morning. Fluids: Normal saline., patient encouraged to drink Electrolytes: Replete as needed Nutrition: Regular diet Activity: As tolerated, fall precautions Status: Acute (2) Syncope and collapse: Status: Acute (3) Postural hypotension: Status: Acute Attestations Medical Necessity Statement*: hypotensive. Time Spent in Patient Care: 16 - 35 minutes Coding Level of Care Code Acute Configuration Management Administrator for [facility] Diagnoses Tachycardia R00.0 Syncope and collapse R55 Postural hypotension I95.1
[2021-07-09] MEDS: HYDROcodone-acetaminophen 5-325 mg Tablet 1 TAB PO (16:42)
[2021-07-10 03:35] VITALS: BP 96/57; PULSE 77; RESP 16; TEMP 36.9; O2SAT 97
[2021-07-10 05:13] VITALS: PULSE 62
[2021-07-10 08:00] VITALS: BP 102/66; PULSE 65; RESP 16; TEMP 37.2; O2SAT 97
[2021-07-10] MEDS: propranolol 20 mg Tablet 10 MG PO (08:50)
[2021-07-10] MEDS: sodium chloride 0.9% 1,000 ML 100 ML IV (08:51)
[2021-07-10] MEDS: venlafaxine ER (24HR) 37.5 mg Capsule PO (08:55)
[2021-07-10 08:56] LABS: Cortisol Random 9.45 ug/dL (2.47-19.5)
[2021-07-10 11:40] VITALS: BP 96/59; PULSE 71; RESP 16; TEMP 37.2; O2SAT 97
--- NOTE | 2021-07-10 11:59 | PM.PN ---
Subjective Subjective: Interval history: Patient is feeling little better today. No chest pain or chest tightness. No palpitations. Telemetry shows normal sinus rhythm. Blood pressure is in the normal range. Medications: Reviewed: Yes Medication Review Details: Current Medications Acetaminophen (Acetaminophen 325 Mg Tablet) 650 mg PO Q6H PRN PRN Reason: Mild/Mod Pain Or Temp >/= 101 Last Admin: 07/08/21 15:49 Dose: 650 mg Documented by: Dihydroergotamine Mesylate (Dihydroergotamine 1 Mg/Ml Inj) 0 mg IVP Q15M PRN; Protocol PRN Reason: MIGRAINE HEADACHE Diphenhydramine HCl (Diphenhydramine 50 Mg/Ml Sdv 1ml) 25 mg IVP ONCE ONE Stop: 07/10/21 11:59 Sodium Chloride (Sodium Chloride 0.9%) 1,000 mls @ 100 mls/hr IV .Q10H [facility] Last Admin: 07/10/21 08:51 Dose: 100 mls/hr Documented by: Ondansetron HCl (Ondansetron 2 Mg/Ml Sdv 2 Ml) 4 mg IVP Q6H PRN PRN Reason: NAUSEA AND VOMITING Last Admin: 07/08/21 04:59 Dose: 4 mg Documented by: Ondansetron HCl (Ondansetron 2 Mg/Ml Sdv 2 Ml) 4 mg IVP ONCE ONE Stop: 07/10/21 12:00 Propranolol HCl (Propranolol 20 Mg Tablet) 10 mg PO BID@0900,2100 [facility] Last Admin: 07/10/21 08:50 Dose: 10 mg Documented by: Venlafaxine HCl (Venlafaxine Er (24hr) 37.5 Mg Capsule) 37.5 mg PO DAILY [facility] Last Admin: 07/10/21 08:55 Dose: 37.5 mg Documented by: Vitals/I&O/Wt Last Vital Signs Temp 99.0 F 07/10/21 11:40 Pulse 71 07/10/21 11:40 Resp 16 07/10/21 11:40 BP 96/59 07/10/21 11:40 Pulse Ox 97 07/10/21 11:40 07/09/21 07/10/21 07/10/21 22:59 06:59 14:59 Intake Total 978.333 / 2218.333 240 / 2458.333 1360 / 1360 Balance 978.333 / 2218.333 240 / 2458.333 1360 / 1360 Physical Exam Narrative: EXAM NARRATIVE: GENERAL: The patient is alert and oriented times three. Not in any acute distress. Looks fatigued HEENT: No significant pallor, icterus or lymphadenopathy. Oral cavity: There are no mucous membrane lesions. NECK: Trachea appears to be central. No masses noted. No JVD or thyromegaly appreciated. No carotid bruit. RESPIRATORY: Chest is symmetrical. No intercostals muscle retraction or any accessory muscle activation. There is no chest wall tenderness. Breath sounds are heard bilaterally. No rales or rhonchi heard. No evidence of any consolidation. BREASTS: Deferred. HEART: The PMI could not be palpated. No other palpable precordial events. The first and second heart sounds are normal. No S3. ABDOMEN: No vessel pulsations or distention. No tenderness. No organomegaly appreciated. No abdominal bruit. Bowel sounds are normally heard. : Deferred. RECTAL: Deferred. LYMPHATIC: No lymphadenopathy noted in the neck or groin. EXTREMITIES: No edema cyanosis. Peripheral pulses are palpable in fairly good volume and amplitude. Data : 07/08/21 05:24 07/08/21 05:24 A&P Assessment and plan (1) Tachycardia: The tachycardia is currently resolved. Apparently patient has not had any tachycardia, since her admission to the medical floor. She seems to be tolerating the propranolol well. Status: Acute (2) Syncope and collapse: Has not had any syncopal episode, since the hospital admission. Status: Acute (3) Head ache: Possibly a variant of migraine-management as per Status: Acute Qualifiers: Headache type: unspecified Headache chronicity pattern: unspecified pattern Intractability: not intractable Qualified Code(s): R51.9 - Headache, unspecified (4) Generalized anxiety disorder: Patient has a history of anxiety disorder. Management as per the per the primary Status: Acute Additional A&P Information Since her cardiac status seems to be stable patient may not require any further cardiac interventions at this point. Discussed with Dr. Macarena Guillermo Medical Necessity Statement*: Possible discharge home today. Coding Level of Care Code Acute Manager Research Development for [facility] Diagnoses Tachycardia R00.0 Syncope and collapse R55 Head ache R51.9 Headache type: unspecified Headache chronicity pattern: unspecified pattern Intractability: not intractable Generalized anxiety disorder F41.1
[2021-07-10] MEDS: ondansetron 2 mg/ML SDV 2 mL 4 MG IVP (12:27)
[2021-07-10] MEDS: diphenhydrAMINE 50 mg/mL SDV 1mL 25 MG IVP (12:27)
[2021-07-10] MEDS: dihydroergotamine 1 mg/mL Inj IVP (12:32)
--- NOTE | 2021-07-10 15:10 | PC.CHAP ---
Pastoral Care Encounter/Spiritual Assessment Type of Contact [] Declined iron miner visit [] Patient/Family/Request visit [] Outpatient visit [xx] Follow-up visit [] Physician referral [] Code/Alert [] Routine visit [] Staff referral [] Actively dying [] Patient sleeping [] Family support [] [xx] Out of room [] Palliative care [] [] Receiving care in room [] Pre-surgical visit [] Trauma [] Long length of stay [] ICU visit [] Other: Relational/Emotional Strength [] Patient feels connected with others/family/visitors/staff [] Distress [] Loneliness/isolation [] Abandonment Spirituality of Patient [] Person of Yen [] Attends Islam of their Yen [] Believes in Prayer [] Reads Bible or Church materials [] There are Spiritual issues to be addressed Grading Machine Operator Interventions [] Prayer [] Active listening [] Non-anxious presence [] Spiritual/emotional support [] Crisis/trauma care [] Spiritual counseling [] Bereavement support [] Provided bereavement packet [] Provided Bible/devotional materials [] Provided toy/stuffed animal, coloring book to patient or family member [] Provided Communion [] Anointing/[place] [] Salvation [] Completed spiritual assessment [] Other: Impact on Illness or Injury [] Angry [] Fearful [] Anxious [] Often cries [] Exhaustion [] Unable to work [] Unable to attend restorationist [] Unable to walk/stand [] Unable to read [] Unable to drive [] Unable to eat/drink [] Unable to sleep [] Unable to be with family [] Patient intubated [] Other: Summary Patient was out of room. Follow up later. Time spent with patient
--- NOTE | 2021-07-10 15:35 | P.DS_ITS ---
Discharge Providers Date of Admission: 07/07/21 16:49 Date of Discharge: July 10, 2021 Attending Provider at Admission: Sierra Fiore MD Attending Provider at Discharge: Sierra Fiore MD Primary Care Provider: Romel Mckeon MD Diagnoses at Discharge Discharge Diagnosis (1) Tachycardia: Status: Acute (2) Syncope and collapse: Status: Acute (3) Head ache: Status: Acute Qualifiers: Headache chronicity pattern: unspecified pattern Headache type: unspecified Intractability: not intractable Qualified Code(s): R51.9 - Headache, unspecified (4) Generalized anxiety disorder: Status: Acute Reason for Visit Reason for Visit: HIGH HR Hospital Course Hospital Course Patient is a 35-year-old female with past medical history of migraines, SVT, generalized anxiety disorder, major depressive disorder, non-smoker who presented to the ER today being sent by Dr. Ayala to the ED for syncope. In the recent week and a half patient has come to the ER twice for palpitations and syncope. She was sent to neurology and there at the clinic she was having tachycardia on and off and her heart rate was noted to be 200 regular and she had no radial pulse at that time. Patient has history of migraine which could be playing a role in her symptoms. Dr. Ayala spoke to Dr. Salcedo and recommended patient to go on a beta-juan and to see Dr. Cortez. Patient states that every time she stands up she gets palpitations and has also been passing out after getting dizzy. She has been having issues with heart rate for couple years now. She states last she was walking out of the ER and passed on the way there. Yesterday she passed out again and woke up in the ER. She has numbness tingling in her hands and feet. She is always tired she is only had 2 episodes of syncope. She does not have any dizziness until he passes out. Patient denies chest pain, dyspnea, abdominal pain, urinary frequency, neck pain, rashes, headache, depression, change in vision, change in hearing, tinnitus, urinary frequency, shortness of breath. ER physician has consulted Dr. Cortez. On chart review: Patient presented to the ER on 06 July with a headache after syncopal epi sode. She had sensation that the room was spinning around her she fell to the floor and hit her right forehead. She stated that the spinning sensation was worse with turning of her head. CT head did not show any intracranial hemorrhage but it does reveal a possible remote lacunar infarct. This was discussed with neurology and she was referred to to neurology outpatient. There was also an outpatient EEG set up for her. In addition in the ER it was noted that she has inducible nystagmus. This improved with meclizine therefore prescription was given to her and she was discharged. patient was here on 02 July at that time she reported that she has a history of SVTs and had an event monitor on for about a month but has not heard of the results yet. Event monitor report shows sinus tachycardia sinus arrhythmia no definitive arrhythmias. Patient was given a referral to cardiology and discharged home. She was asked to come back to the ED if there are further problems. Course: Patient was given metoprolol 25 twice daily and developed hypotension. She required few liters of normal saline. Case was discussed with Dr. Cortez (cards) & Dr. Ayala. We believe her symptoms were not purely cardiac and there could be a migraine variant. Patient still had symptoms when she was laying flat. Initial working therapy was POTS but she could have a combination of both migraine and POTS or just the migraine variant. Patient was switched to Inderal 10 mg twice daily. That seemed to help with heart rate and for blood pressure stability Dr. Ayala recommended to add Effexor 37.5 mg daily which was added. Patient was given dihydroergotamine every 15 minutes as treatment of her headache. She received 1 dose and that resolved her headache. Patient symptoms improved plan was discussed with patient in detail. Patient was discharged on Inderal 10 mg twice daily. I also advised her not to drive until she sees Dr. Ayala in the outpatient setting within 1 week. EEG has also been ordered for her. Patient is on clonazepam 0.5 mg twice daily at home and sometimes takes an additional third dose. I advised her to cut that down to 0.25 once or twice a day but showed avoid taking that until she sees her primary care physician. Patient will see Dr. Ayala outpatient within a week. Physical Exam Narrative: EXAM NARRATIVE: General: Alert oriented x3, appears comfortable. HEENT: Normocephalic, atraumatic, EOMI, breathing room air Cardio: Regular rate rhythm, normal S1-S2, no murmurs rubs gallops, heart rate 70s when seen in the room. Respiratory: Good bilateral air entry, no wheezes no rhonchi appreciated GI: Abdomen soft, nontender, nondistended, normoactive bowel sounds present all 4 quadrants, Neuro: No gross neurological deficit. Behavior: Appropriate and cooperative Extremities: Pulses 2+, no edema, no cyanosis Vitals repeated right before discharge 102/63, pulse 54, 98.6, satting 97% on room air. Discharge Data Data Completed and Pending: Completed Studies During Hospitalization Category Date Time Status CV. echo complete * [id number] Routine Ultrasound 07/08/21 17:52 Completed Labs from last 24 hours 07/10/21 08:02 Random Cortisol 9.45 Vitals: Last Vital Signs Temp 99.0 F 07/10/21 11:40 Pulse 71 07/10/21 11:40 Resp 16 07/10/21 11:40 BP 96/59 07/10/21 11:40 Pulse Ox 97 07/10/21 11:40 Discharge Plan Discharge Patient Disposition: Home Condition: Stable Prescriptions: New venlafaxine 37.5 mg Capsule,Extended Release 24hr 37.5 mg PO DAILY Qty: 30 RF: 0 propranolol 20 mg Tablet 10 mg PO BID@0900,2100 Qty: 60 RF: 0 Continued ibuprofen [Advil] 200 mg Tablet 800 mg PO Q4H PRN (Reason: Pain) RF: 0 Held clonazepam 0.5 mg tablet 0.5 mg PO BID@06,20 RF: 0 Hold Instructions: see PCP before resuming Discontinued meclizine 25 mg tablet 25 mg PO TID PRN (Reason: dizziness) Qty: 10 RF: 0 diphenhydramine HCl [Benadryl] 25 mg Capsule 25 mg PO BEDTIME RF: 0 Discharge Orders: Discharge Order (Routine); Ordered 07/10/21 Ordered By: Sierra Fiore Other Ambulatory Orders: EEG electroencephalogram (Routine) Timeframe: 1 Week Facility: [facility] - Location: Neurology Ordered By: Sierra Fiore Referrals: Pia Ayala MD [Physician] - 1 week ([facility] will call you with an appointment on Tuesday. ) Romel Mckeon MD [Primary Care Provider] - 07/17/21 11:30 am Discharge Diet: Regular Patient Instructions: Propranolol (By mouth), Venlafaxine (By mouth), Migraine Headache (GEN), Hypotension (DC), Tachycardia (GEN), Opioid Safety Activity Restrictions/Additional Instructions: I advise against driving motorvehicle. Please see Dr. Ayala in clinic within 1 week. Discharge Attestations Time Spent in Discharge Care*: less than 30 min Status at Discharge: Cognitive status at discharge: cognitively intact , Functional status at discharge: independent ambulation Overall status at discharge: patient is back to baseline Quality Metrics Clinical Quality Measures During this hospital stay, did patient experience: None Coding Level of Care Code Acute Chg FW DC note Diagnoses Tachycardia R00.0 Syncope and collapse R55 Head ache R51.9 Headache chronicity pattern: unspecified pattern Headache type: unspecified Intractability: not intractable Generalized anxiety disorder F41.1
[2021-07-10 15:45] VITALS: BP 96/59; PULSE 71; RESP 16; TEMP 37.2; O2SAT 97
--- NOTE | 2021-07-14 09:10 | PC.SOCIAL ---
discharge follow up call made, spoke with patient. she is back at work today, she reports i can tell my heart rate is higher today patient denies chest pain or shortness of breath. patient picked up propranolol and venlafaxine from the pharmacy and she is taking as directed. pt is aware of discontinued and held medications. patient is aware of follow up with pcp on 07-17 and her appointment with dr. bolivar on 07-27. patient denies questions or concerns.
== END 2021-07-10 16:27 | disposition home or self-care (01) ==
LOC: ER 16:16 → MEDSURG 18:15
PROVIDERS: Admitting Provider Internal Medicine; Emergency Provider Family Medicine; PCP Family Medicine; Visit Provider Internal Medicine
DX: R00.0 Tachycardia, unspecified (principal); R55 Syncope and collapse; R51.9 Headache, unspecified; F41.1 Generalized anxiety disorder; I95.1 Orthostatic hypotension
CPT/HCPCS: 36415; 80048; 80053; 82533; 82607; 82746; 83735; 84484; 85025; 93005; 93306; 96361; 96374; 96375; 96376; 99285; G0378; J1110; J1200; J2405; J3490; J7030; J7040

== ENCOUNTER → 2021-07-23 09:49 | Outpatient (BNVA) | payer MEDICAID, SELFPAY | PROVIDERS: PCP Family Medicine; Visit Provider Specialist | DX: R55 Syncope and collapse (principal); R56.9 Unspecified convulsions | CPT/HCPCS: 95816 ==

== ENCOUNTER → 2021-08-17 08:54 | Outpatient (BNVA) | payer MEDICAID, SELFPAY | PROVIDERS: PCP Family Medicine; Visit Provider Specialist | DX: R56.9 Unspecified convulsions (principal) | CPT/HCPCS: 95816 ==

== ENCOUNTER 2021-08-18 06:17 | Emergency (ER) | payer MEDICAID, SELFPAY ==
[2021-08-18 06:35] VITALS: BP 136/86; PULSE 140; RESP 20; TEMP 37; O2SAT 100; BMI 19.5
--- NOTE | 2021-08-18 06:43 | ECG_ITS ---
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 Measurements Intervals [place] Rate: 97 P: 74 TX: 171 QRS: 73 QRSD: 67 T: 59 QT: 335 QTc: 426 Interpretive Statements SINUS RHYTHM POSSIBLE LEFT ATRIAL ENLARGEMENT [-0.1mV P-WAVE IN V1/V2] SEPTAL MYOCARDIAL INFARCTION , OF INDETERMINATE AGE [40+ ms Q WAVE IN V1/V2] Compared to ECG 07/07/2021 23:24:34 Myocardial infarct finding now present Sinus bradycardia no longer present Sinus arrhythmia no longer present ST (T wave) deviation no longer present Electronically Signed On 08-19-2021 7:34:28 HAND CIGAR MAKER by Mary Recinos M.D. [id number]
--- NOTE | 2021-08-18 06:46 | W.ED.CHESTPA ---
HPI - Chest Pain General: Chief Complaint: Chest Pain Stated Complaint: Dizzy, Nausea, High HR Time Seen by Provider: 08/18/21 06:19 History of Present Illness: HPI narrative: 35-year-old female presents to the emergency room with complaints of lightheadedness dizziness near syncopal sensation. She has been in the ER multiple times this in the past and had some tachycardias and hypotensive episodes. She was admitted started on propranolol eventually discharged home she had upper back for a while until now. On arrival here she is awake and alert she did take a double dose of propranolol this morning stating her heart rate was in the 230s. She is denying any chest discomfort at this time she is quite anxious. When I was in the room her heart rate was very in the low 100 range. Onset (ago): hour(s) Timing of current episode: episodic Prior episodes: Yes Onset: during rest Pain radiation: none Relieving factors: rest Exacerbating factors: exertion and other (Upright position) Associated symptoms: Deny abdominal pain, diaphoresis, dyspnea, fever(s), leg edema, nausea, palpitations, sense of impending doom, syncope or vomiting Review of Systems Const: Denies: fever(s) or diaphoresis ENMT: Denies: throat pain, ear or mastoid pain, nasal discharge or nasal congestion Card: Denies: palpitations or syncope Resp: Denies: dyspnea GI: Denies: abdominal pain, nausea or vomiting : Denies: flank pain, difficulty voiding, dysuria, urinary frequency or urinary urgency Skin/Breast: Denies: rash or pruritus [facility] ED PFSH: Medical History Generalized anxiety disorder Major depressive disorder, recurrent, moderate Social History History of recent travel: No Physical Exam Const: COMMON NORMALS: no acute distress GENERAL APPEARANCE: cooperative and comfortable ORIENTATION/CONSCIOUSNESS: Yes awake, Yes oriented to person, Yes oriented to place and Yes oriented to time HENMT: COMMON NORMALS: normocephalic, atraumatic and hearing grossly normal bilaterally HEAD & SCALP: normocephalic and atraumatic Neck/C-Spine: COMMON NORMALS: no JVD Resp: COMMON NORMALS: normal respiratory effort, No retractions, No use of accessory muscles and clear to auscultation bilaterally AUSCULTATION: clear to auscultation bilaterally Cardio: COMMON NORMALS: no JVD, regular rate and No murmurs present (Cardio) RATE: regular rate and tachycardic GI: COMMON NORMALS: Soft to palpation and No hepatosplenomegaly present AUSCULTATION: Yes normoactive bowel sounds PALPATION: Yes Soft to palpation, No Tenderness to palpation present (GI), No Guarding due to palpation present (GI) and Yes No hepatosplenomegaly present Extremity: COMMON NORMALS: normal to inspection, capillary refill normal, no clubbing, cyanosis or edema, no calf tenderness and no pedal edema Neuro: SENSORIUM/ORIENTATION: Yes oriented to person, Yes oriented to place and Yes oriented to time Skin: COMMON NORMALS: no rashes or lesions noted GENERAL SKIN EXAM: no rashes or lesions noted Course Vital Signs: Vital signs: Vital Signs Temperature 98.1 F 08/18/21 07:27 Pulse Rate 77 08/18/21 09:29 Respiratory Rate 20 H 08/18/21 09:29 Blood Pressure 100/62 08/18/21 09:29 Pulse Oximetry 99 08/18/21 09:29 MDM - Chest Pain MDM Narrative: Medical decision making narrative: Labs imaging and EKG reviewed with the patient. Orthostatics normal she does not elevate her heart rate when standing which she has in the past. She is feeling somewhat better. I am going to have her stop the propranolol and switch to Toprol-XL 12 and half milligrams once daily to see would get better coverage with the Toprol beta-juan think she may be having some times where half-life of the propranolol runs out and she is covered and that is why she is still getting breakthrough episodes. She states the headaches are not precipitating the tachycardia but occur after she has episodes of tachycardia. This being the case controlling her tachycardia may actually control her headaches better. The Toprol with longer half-life may be more effective. Requests her to contact Dr. Ayala and her transportation supervisor later today and make follow-up appointment within the next week return to the emergency room if she has further problems. Lab Data: Labs: Lab Results 08/18/21 08/18/21 08/18/21 06:45 06:45 06:45 WBC 5.8 10^3/uL 10^3/ uL (4.0-10.0) RBC 4.93 10^6/uL 10^6 /uL (4.1-5.3) Hgb 14.8 g/dL g/dL (11.5-15.3) Hct 43.0 % % (37.0-47.0) MCV 87.2 fl fl (81-99) MCH 30.0 pg pg (28.0-34.0) MCHC 34.4 g/dL g/dL (30.0-36.0) RDW 13.1 % % (12.1-15.1) Plt Count 378 10^3/cmm 10^3 /cmm (130-400) MPV 9.4 fL fL (7.4-10.4) Neut % (Auto) 48.6 % % Lymph % (Auto) 42.2 % % [place] % (Auto) 6.2 % % Eos % (Auto) 2.1 % % Baso % (Auto) 0.7 % % Neut # (Auto) 2.84 10^3/uL 10^3 /uL (1.8-7.7) Lymph # (Auto) 2.5 10^3/uL 10^3/ uL (0.8-4.8) [place] # (Auto) 0.4 10^3/uL 10^3/ uL (0.2-0.9) Eos # (Auto) 0.1 10^3/uL 10^3/ uL (0.0-0.8) Baso # (Auto) 0.0 10^3/uL 10^3/ uL (0.0-0.1) Nucleated RBC % (a uto) 0 % % Nucleated RBCs # 0.0 /100WBC /100W BC Sodium 137 mmol/L mmol/L (136-145) Potassium 3.3 mmol/L L mmol /L (3.5-5.1) Chloride 98 mmol/L mmol/L (98-107) Carbon Dioxide 24 mmol/L mmol/L (22-29) Anion Gap 18.3 (5-19) BUN 5 mg/dL L mg/dL (6-20) Creatinine 0.5 mg/dL mg/dL (0.5-0.9) GFR Calculation 138.8 mL/min H mL /min (90-130) Glucose 87 mg/dL mg/dL (65-115) Calculated Osmolal ity 281 mOsm/kg L mOs m/kg (285-295) Calcium 9.6 mg/dL mg/dL (8.5-10.5) HCG, Qual Negative (Negative) Discharge Plan Discharge Patient Disposition: Home Clinical Impression: Tachycardia Condition: Stable Prescriptions: New Toprol XL 25 mg tablet extended release 24 hr 12.5 mg PO DAILY Qty: 14 RF: 0 Discontinued propranolol 20 mg Tablet 10 mg PO BID@0900,2100 Qty: 60 RF: 0 No Action clonazepam 0.5 mg tablet 0.5 mg PO TID PRN (Reason: anxiety) Qty: 90 RF: 1 escitalopram oxalate [Lexapro] 10 mg tablet 10 mg PO DAILY Qty: 30 RF: 1 ibuprofen [Advil] 200 mg Tablet 800 mg PO Q4H PRN (Reason: Pain) RF: 0 Discharge Orders: Discharge ED (Routine); Ordered 08/18/21 Ordered By: Manjinder Stallworth Referrals: Romel Mckeon MD [Primary Care Provider] - Discharge Diet: Usual diet Discharge Activity: Increase activity as tolerated Patient Instructions: Opioid Safety Coding Level of Care Code ED Education Reporter for Chg Fwd 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
[2021-08-18 06:50] VITALS: BP 134/99; PULSE 99; RESP 20; O2SAT 100
[2021-08-18 06:51] LABS: Basophils % 0.7 %; Eosinophils # 0.1 10^3/uL (0.0-0.8); Eosinophils % 2.1 %; Hemoglobin 14.8 g/dL (11.5-15.3); Lymphocytes # 2.5 10^3/uL (0.8-4.8); Lymphocytes % 42.2 %; Mean Corpuscular HGB Conc 34.4 g/dL (30.0-36.0); Mean Corpuscular Volume 87.2 fl (81-99); Mean Platelet Volume 9.4 fL (7.4-10.4); Monocytes # 0.4 10^3/uL (0.2-0.9); Monocytes % 6.2 %; Neutrophils # 2.84 10^3/uL (1.8-7.7); Neutrophils % 48.6 %; Nucleated Red Blood Cells % 0 %; Platelet Count 378 10^3/cmm (130-400); Red Blood Count 4.93 10^6/uL (4.1-5.3); Red Cell Distribution Width 13.1 % (12.1-15.1); White Blood Count 5.8 10^3/uL (4.0-10.0)
[2021-08-18] MEDS: sodium chloride 0.9% 500 ML 999 ML IV (06:52)
[2021-08-18] MEDS: metoprolol tartrate 1 mg/1 mL SDV 5 mL 2.5 MG IVP (06:54)
[2021-08-18] MEDS: promethazine 25 mg/mL SDV 1 mL 12.5 MG IM (06:55)
[2021-08-18 07:06] LABS: HCG, Serum Qual Negative (Negative)
[2021-08-18 07:11] LABS: Anion Gap 18.3 (5-19); Blood Urea Nitrogen 5 mg/dL (6-20); Calcium 9.6 mg/dL (8.5-10.5); Carbon Dioxide 24 mmol/L (22-29); Chloride 98 mmol/L (98-107); Glomerular Filtration Rate 138.8 mL/min (90-130); Glucose 87 mg/dL (65-115); Osmolality Calculated 281 mOsm/kg (285-295); Potassium 3.3 mmol/L (3.5-5.1); Sodium 137 mmol/L (136-145)
[2021-08-18 07:27] VITALS: PULSE 104; RESP 19; TEMP 36.7; O2SAT 100
[2021-08-18] MEDS: metoprolol succinate ER (24 HR) 50 mg Tablet 25 MG PO (07:32)
[2021-08-18 08:50] VITALS: BP 96/68; PULSE 79; RESP 25; O2SAT 100
[2021-08-18 08:57] VITALS: BP 93/68; BP 95/62; BP 99/72; PULSE 73; PULSE 79; PULSE 85
[2021-08-18 09:29] VITALS: BP 100/62; PULSE 77; RESP 20; O2SAT 99
== END 2021-08-18 09:32 | disposition home or self-care (01) ==
PROVIDERS: Emergency Provider Family Medicine; PCP Family Medicine
DX: R00.0 Tachycardia, unspecified (principal); F41.1 Generalized anxiety disorder; F33.9 Major depressive disorder, recurrent, unspecified
CPT/HCPCS: 80048; 84703; 85025; 93005; 96372; 96374; 99284; J2550; J3490; J7040

== ENCOUNTER → 2021-08-20 07:46 | Outpatient (BNVA) | payer MEDICAID, SELFPAY | PROVIDERS: PCP Family Medicine; Visit Provider Nurse Practitioner | DX: F41.1 Generalized anxiety disorder (principal); F33.1 Major depressive disorder, recurrent, moderate | CPT/HCPCS: 99214 ==

== ENCOUNTER → 2021-08-25 12:07 | Outpatient (BNVA) | payer MEDICAID, SELFPAY | PROVIDERS: PCP Family Medicine; Referring Provider Emergency Medicine; Visit Provider Specialist | DX: I95.1 Orthostatic hypotension; R00.0 Tachycardia, unspecified; G43.019 Migraine without aura, intractable, without status migrainosus; F41.1 Generalized anxiety disorder | CPT/HCPCS: 99214 ==

== ENCOUNTER 2021-09-17 08:18 | Emergency (ER) | payer MEDICAID, SELFPAY ==
[2021-09-17 08:38] VITALS: BP 118/82; PULSE 126; RESP 20; TEMP 36.8; O2SAT 100; BMI 20.5
[2021-09-17 08:45] VITALS: BP 118/82; PULSE 126; RESP 20; TEMP 36.8; O2SAT 100
--- NOTE | 2021-09-17 08:48 | ED_ITS ---
HPI - Chest Pain General: Chief Complaint: Chest Pain Stated Complaint: RAPID HEART RATE Time Seen by Provider: 09/17/21 08:48 History of Present Illness: HPI narrative: HIGH HR MD complaint: chest heaviness Timing of current episode: episodic Prior episodes: Yes Onset: other (after disagreement with ex ) Pain radiation: none Relieving factors: nothing Exacerbating factors: stress Context: other (SYMPTOMS INCREASED AND FREQUENCY AFTER SECOND COVID SHOT IN MAY ) Associated symptoms: Reports diaphoresis, palpitations and sense of impending doom Treatment prior to arrival: other (additonal betablocker ) Review of Systems Const: Reports: diaphoresis Card: Reports: palpitations Neuro: Reports: numbness in extremities and weakness in extremities Psych: Reports: panic attacks PFS ED PFSH: Medical History Generalized anxiety disorder Major depressive disorder, recurrent, moderate Psychiatric care Social History Smoking and tobacco status: never smoked History of recent travel: No Physical Exam Const: COMMON NORMALS: no acute distress, patient oriented x3, no limitations and alert GENERAL APPEARANCE: cooperative and comfortable ORIENTATION/CONSCIOUSNESS: Yes awake, Yes oriented to person, Yes oriented to place and Yes oriented to time HENMT: COMMON NORMALS: normocephalic, atraumatic, external ears normal, EAC's normal, TM's normal bilaterally and Normal external nose present HEAD & SCALP: normal to inspection, normocephalic and atraumatic FACE & SINUS: normal facial exam, sinuses nontender and face symmetric NOSE: Normal external nose present, Normal nares present and No nasal discharge present EXTERNAL EAR: Yes external ears normal EXTERNAL AUDITORY CANAL: EAC's normal TYMPANIC MEMBRANE: TM's normal bilaterally MOUTH: Normal oral and palatal mucosa present, lip normal and tongue normal THROAT: posterior oropharynx normal, tonsils normal and uvula midline Eye: COMMON NORMALS: Equal, round and reactive pupils present, EOMs intact bilaterally and conjunctivae normal GENERAL EYE: appearance normal, both eyes and all related structures and normal light reflex EYELID: eyelids normal CONJUNCTIVA: Yes conjunctivae normal PUPIL: Yes Equal, round and reactive pupils present EOM: Yes EOM abnormal DIRECT OPHTHALMOSCOPY: Yes normal light reflex Neck/C-Spine: COMMON NORMALS: full ROM, no lymphadenopathy, supple, no meningeal signs, no JVD and Thyroid normal GENERAL: Yes normal visual inspe ction THYROID: Thyroid normal CERVICAL SPINE: Yes cervical ROM normal and Yes normal cervical lordosis Lymph: LYMPHATIC: no lymphadenopathy noted Chest: COMMONS NORMALS: normal inspection of the chest and normal palpation of entire chest wall Resp: COMMON NORMALS: normal respiratory effort, No retractions and clear to auscultation bilaterally AUSCULTATION: clear to auscultation bilaterally Cardio: COMMON NORMALS: no JVD, regular rate, regular rhythm, S1 normal heart sound present, S2 normal heart sound present, No gallops present (Cardio), No clicks present (Cardio), No murmurs present (Cardio), No rub (Cardio) and Peripheral pulses 2+ throughout RATE: regular rate RHYTHM: regular rhythm HEART SOUNDS: S1 normal heart sound present and S2 normal heart sound present PERIPHERAL PULSES: Peripheral pulses 2+ throughout GI: COMMON NORMALS: Normal to inspection, nondistended, normoactive bowel sounds present, Soft to palpation, non-tender and no masses PALPATION: Yes Soft to palpation : COMMON NORMALS: Yes no CVA tenderness and Yes normal external appearance BLADDER/KIDNEY EXAM: Yes no CVA tenderness Back/Pelvis: COMMON NORMALS: no CVA tenderness, thoracic and lumbar spine normal to inspection, no thoracic nor lumbar tenderness and thoraco-lumbar ROM normal Extremity: COMMON NORMALS: normal to inspection, full ROM, capillary refill normal, no joint enlargement, no clubbing, cyanosis or edema, no calf tenderness and no pedal edema GENERAL: Yes normal exam except as noted Neuro: COMMON NORMALS: patient oriented x3, moves all extremities, no focal motor deficits, no sensory deficits noted and gait normal SENSORIUM/ORIENTATION: Yes alert, Yes oriented to person, Yes oriented to place and Yes oriented to time MENINGEAL SIGNS: Yes no meningeal signs Psych: COMMON NORMALS: mental status grossly normal, Normal thought process present, cooperative, normal affect, speech normal and activity/motor behavior normal SPEECH: Yes normal speech THOUGHT PROCESS: Normal thought process present Skin: COMMON NORMALS: no rashes or lesions noted, no wounds and turgor normal GENERAL SKIN EXAM: no rashes or lesions noted and turgor normal Course ED course: Pt presents today with concerns of rapid HR. She states she did have a disagreement with her ex and shortly after began to note her symptoms. She took an additional beta juan but symptoms did not resolve. Upon ER arrival she is mildly tachycardic however upon rest it has resolved and is now 80s NSR with normotensive BP. I am concerned that pt may have some mineral/vitamin deficiencies as well as a cortisol steal due to chronic and ongoing life stressors. She notes after her second covid shot in May all of her symptoms flared which leads me to consider an inflammatory response is likely and detoxification pathways impaired. Acutely she is stable. We will address labs to ensure no cardiac concerns are underlying but recommend that patient consider looking into functional medicine to help understand some of her body's responses along with modern medicine modalities. Reevaluation(s): Reevaluation #1: Labs reflect that pt has no acute infection; she is resting comfortably at this time. Awaiting last lab and will proceed with DC and follow up care with PCP. Time: 10:16 Vital Signs: Vital signs: Vital Signs Temperature 98.3 F 09/17/21 08:45 Pulse Rate 111 H 09/17/21 09:42 Respiratory Rate 19 H 09/17/21 09:42 Blood Pressure 118/82 09/17/21 08:45 Pulse Oximetry 98 09/17/21 09:42 MDM - Chest Pain Lab Data: Labs: Lab Results 09/17/21 09/17/21 09:39 09:39 WBC 6.5 10^3/uL 10^3/ uL (4.0-10.0) RBC 4.33 10^6/uL 10^6 /uL (4.1-5.3) Hgb 13.1 g/dL g/dL (11.5-15.3) Hct 38.3 % % (37.0-47.0) MCV 88.5 fl fl (81-99) MCH 30.3 pg pg (28.0-34.0) MCHC 34.2 g/dL g/dL (30.0-36.0) RDW 12.6 % % (12.1-15.1) Plt Count 390 10^3/cmm 10^3 /cmm (130-400) MPV 9.2 fL fL (7.4-10.4) Neut % (Auto) 50.3 % % Lymph % (Auto) 37.9 % % [place] % (Auto) 6.4 % % Eos % (Auto) 3.7 % % Baso % (Auto) 1.5 % % Neut # (Auto) 3.28 10^3/uL 10^3 /uL (1.8-7.7) Lymph # (Auto) 2.5 10^3/uL 10^3/ uL (0.8-4.8) [place] # (Auto) 0.4 10^3/uL 10^3/ uL (0.2-0.9) Eos # (Auto) 0.2 10^3/uL 10^3/ uL (0.0-0.8) Baso # (Auto) 0.1 10^3/uL 10^3/ uL (0.0-0.1) Nucleated RBC % (a uto) 0 % % Nucleated RBCs # 0.0 /100WBC /100W BC Sodium 139 mmol/L mmol/L (136-145) Potassium 3.7 mmol/L mmol/L (3.5-5.1) Chloride 105 mmol/L mmol/L (98-107) Carbon Dioxide 25 mmol/L mmol/L (22-29) Anion Gap 12.7 (5-19) BUN 7 mg/dL mg/dL (6-20) Creatinine 0.6 mg/dL mg/dL (0.5-0.9) GFR Calculation 112.5 mL/min mL/m in (90-130) Glucose 90 mg/dL mg/dL (65-115) Calculated Osmolal ity 286 mOsm/kg mOsm/ kg (285-295) Calcium 8.3 mg/dL L mg/dL (8.5-10.5) Magnesium 2.1 mg/dL mg/dL (1.7-2.3) Total Bilirubin 0.4 mg/dL mg/dL (0.15-1.2) AST 25 U/L U/L (0-32) ALT 19 U/L U/L (0-33) Alkaline Phosphata se 54 IU/L IU/L (35-105) Total Protein 6.2 g/dL L g/dL (6.6-8.7) Albumin 4.0 g/dL g/dL (3.5-5.2) Globulin 2.2 g/dL g/dL (1.3-4.6) Discharge Plan Discharge Prescriptions: No Action Toprol XL 25 mg tablet extended release 24 hr 25 mg PO DAILY Qty: 30 RF: 3 clonazepam 0.5 mg tablet 0.5 mg PO TID PRN (Reason: anxiety) Qty: 90 RF: 1 metronidazole 500 mg tablet 500 mg PO BID 7 Days Qty: 14 RF: 0 bupropion HCl [Wellbutrin XL] 150 mg tablet extended release 24 hr 150 mg PO QAM Qty: 30 RF: 1 ibuprofen [Advil] 200 mg Tablet 800 mg PO Q4H PRN (Reason: Pain) RF: 0 Coding Level of Care Code ED Ic Design Engineer for g Fwd 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
--- NOTE | 2021-09-17 08:50 | PC.NURSE ---
NURSE WALKED INTO PATIENT ROOM AFTER OUTSIDE MONITORS WERE ALARMING. PATIENT AWAKE IN ROOM, BUT STATED I PASSED OUT. NURSE ASKED IF THIS JUST HAPPENED AND PATIENT VERBALIZED THAT I WOKE UP AND NO ONE WAS IN HERE, I REMEMBER YOU BEING IN HERE. PHYSICIAN NOTIFIED.
[2021-09-17] MEDS: LORazepam 2 mg/mL INJ 1 mL 0.5 MG IVP (09:35)
[2021-09-17 09:42] VITALS: PULSE 111; RESP 19; O2SAT 98
[2021-09-17 09:43] LABS: Basophils # 0.1 10^3/uL (0.0-0.1); Monocytes # 0.4 10^3/uL (0.2-0.9); Nucleated Red Blood Cells % 0 %
[2021-09-17 09:53] LABS: Hematocrit 38.3 % (37.0-47.0); Hemoglobin 13.1 g/dL (11.5-15.3); Red Blood Count 4.33 10^6/uL (4.1-5.3); White Blood Count 6.5 10^3/uL (4.0-10.0)
[2021-09-17 09:54] LABS: Basophils % 1.5 %; Eosinophils # 0.2 10^3/uL (0.0-0.8); Eosinophils % 3.7 %; Lymphocytes # 2.5 10^3/uL (0.8-4.8); Lymphocytes % 37.9 %; Mean Corpuscular HGB Conc 34.2 g/dL (30.0-36.0); Mean Corpuscular Hemoglobin 30.3 pg (28.0-34.0); Mean Corpuscular Volume 88.5 fl (81-99); Mean Platelet Volume 9.2 fL (7.4-10.4); Monocytes % 6.4 %; Neutrophils # 3.28 10^3/uL (1.8-7.7); Neutrophils % 50.3 %; Platelet Count 390 10^3/cmm (130-400); Red Cell Distribution Width 12.6 % (12.1-15.1)
[2021-09-17 10:12] LABS: Alanine Aminotransferase 19 U/L (0-33); Alkaline Phosphatase 54 IU/L (35-105); Aspartate Amino Transferase 25 U/L (0-32); Blood Urea Nitrogen 7 mg/dL (6-20); Calcium 8.3 mg/dL (8.5-10.5); Carbon Dioxide 25 mmol/L (22-29); Chloride 105 mmol/L (98-107); Globulin 2.2 g/dL (1.3-4.6); Glomerular Filtration Rate 112.5 mL/min (90-130); Glucose 90 mg/dL (65-115); Magnesium 2.1 mg/dL (1.7-2.3); Osmolality Calculated 286 mOsm/kg (285-295); Sodium 139 mmol/L (136-145); Total Bilirubin 0.4 mg/dL (0.15-1.2); Total Protein 6.2 g/dL (6.6-8.7)
[2021-09-17 10:15] LABS: Anion Gap 12.7 (5-19); Potassium 3.7 mmol/L (3.5-5.1)
[2021-09-17 10:28] LABS: Homocysteine 9.12
[2021-09-17 10:45] VITALS: PULSE 92
--- NOTE | 2021-09-17 16:44 | ECG_ITS ---
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 Measurements Intervals [place] Rate: 108 P: 66 TN: 177 QRS: 74 QRSD: 83 T: 63 QT: 339 QTc: 455 Interpretive Statements SINUS TACHYCARDIA ABNORMAL RHYTHM ECG Compared to ECG 08/18/2021 06:28:39 Sinus rhythm no longer present Myocardial infarct finding no longer present Electronically Signed On 09-19-2021 7:50:00 DIGITAL ANALYST by Froilan Flores M.D. [id number] f
== END 2021-09-17 10:49 | disposition home or self-care (01) ==
PROVIDERS: Emergency Provider Nurse Practitioner Family; PCP Family Medicine
DX: R07.9 Chest pain, unspecified (principal)
CPT/HCPCS: 80053; 83090; 83735; 85025; 93005; 96374; 99283; J2060

== ENCOUNTER 2021-10-07 06:10 | Emergency (ER) | payer MEDICAID, SELFPAY ==
[2021-10-07 06:16] VITALS: BP 129/85; PULSE 72; RESP 18; TEMP 36.6; O2SAT 100; BMI 21.4
--- NOTE | 2021-10-07 06:40 | W.ED.ARRPALP ---
HPI - Arrhythmia/Palpitations General: Chief Complaint: Arrhythmia/Palpitations Stated Complaint: RAPID HEART RATE Time Seen by Provider: 10/07/21 06:21 History of Present Illness: HPI narrative: Patient comes in concerned for tachycardia, nausea, and generally not feeling well. States she has a history of SVT and is on metoprolol. States she woke up and her heart rate was high. States she took her morning metoprolol 12.5 mg, then took a dose of propranolol which she is no longer prescribed. She denies any cold symptoms including no fever, cough, congestion, vomiting, or diarrhea. Upon arrival here her heart rate is in the 70s and her blood pressure is within normal limits. Associated symptoms: Deny anxiety, nausea or vomiting Review of Systems Const: Denies: fever(s) or body aches Eyes: Denies: change in vision or blurry vision ENMT: Denies: throat pain or odynophagia Card: Reports: palpitations; Denies: chest pain Resp: Denies: dyspnea or productive cough GI: Denies: abdominal pain, nausea or vomiting : Denies: flank pain or dysuria Musc: Denies: neck pain or back pain Skin/Breast: Denies: rash or pruritus Neuro: Denies: headache(s) or numbness in extremities Psych: Denies: anxiety or change in appetite Endo: Denies: polyuria or excessive sweating PFS ED PFSH: Medical History Generalized anxiety disorder Major depressive disorder, recurrent, moderate Psychiatric care Social History Smoking and tobacco status: never smoked History of recent travel: No Physical Exam Const: COMMON NORMALS: no acute distress and patient oriented x3 EXAM LIMITATIONS: no altered mental status GENERAL APPEARANCE: cooperative, comfortable and well developed ORIENTATION/CONSCIOUSNESS: Yes awake, Yes oriented to person, Yes oriented to place and Yes oriented to time HENMT: COMMON NORMALS: normocephalic and atraumatic HEAD & SCALP: normocephalic and atraumatic Eye: COMMON NORMALS: Equal, round and reactive pupils present and EOMs intact bilaterally PUPIL: Yes Equal, round and reactive pupils present Neck/C-Spine: COMMON NORMALS: full ROM and supple Resp: COMMON NORMALS: normal respiratory effort, No retractions and clear to auscultation bilaterally AUSCULTATION: clear to auscultation bilaterally Cardio: COMMON NORMALS: regular rate and regular rhythm RATE: regular rate RHYTHM: regular rhythm GI: COMMON NORMALS: Normal to inspection, nondistended, normoactive bowel sounds present, Soft to palpation and non-tender PALPATION: Yes Soft to palpation Back/Pelvis: COMMON NORMALS: thoraco-lumbar ROM normal Extremity: COMMON NORMALS: normal to inspection and full ROM Neuro: COMMON NORMALS: patient oriented x3 SENSORIUM/ORIENTATION: Yes oriented to person, Yes oriented to place and Yes oriented to time Course ED course: Patient comes in concerned for tachycardia this morning as well as nausea and generally not feeling well. States he has a history of SVT for which she is taking metoprolol for. States she took her metoprolol this morning as well as an extra dose of her propranolol which she used to be on. States she just felt like she was going to pass out and is still nauseated. Physical exam is unremarkable. Her heart rate is in the 70s, with a regular rhythm at this time. We will give her a dose of p.o. Zofran and reassess. Reevaluation(s): Reevaluation #1: On reassessment the patient's vital signs continue to be within normal limits. She states that she still has nausea. Will prescribe Compazine for home and discharged with precautions return for worsening or changing symptoms. We will also encourage her to follow-up with her primary care physician. Vital Signs: Vital signs: Vital Signs Temperature 97.8 F 10/07/21 06:16 Pulse Rate 70 10/07/21 06:49 Respiratory Rate 17 10/07/21 06:49 Blood Pressure 94/71 10/07/21 06:49 Pulse Oximetry 96 10/07/21 06:49 MDM - Arrhythmia/Palpitations EKG Data^: EKG done at 6:26 AM shows normal sinus rhythm with a rate of 90 bpm, no ST segment elevation, normal axis: Attestation: I personally reviewed and interpreted this EKG as follows: EKG interpretation time: 06:27 Discharge Plan Discharge Patient Disposition: Home Clinical Impression: Tachycardia, Nausea Condition: Stable Prescriptions: New Compazine 10 mg tablet 10 mg PO Q8H PRN (Reason: nausea and vomiting) Qty: 14 RF: 0 No Action Toprol XL 25 mg tablet extended release 24 hr 25 mg PO DAILY Qty: 30 RF: 3 clonazepam 0.5 mg tablet 0.5 mg PO TID PRN (Reason: anxiety) Qty: 90 RF: 1 metronidazole 500 mg tablet 500 mg PO BID 7 Days Qty: 14 RF: 0 bupropion HCl [Wellbutrin XL] 150 mg tablet extended release 24 hr 150 mg PO QAM Qty: 30 RF: 1 ibuprofen [Advil] 200 mg Tablet 800 mg PO Q4H PRN (Reason: Pain) RF: 0 Discharge Orders: Discharge ED (Routine); Ordered 10/07/21 Ordered By: Jorge Danielson Referrals: Romel Mckeon MD [Primary Care Provider] - Activity Restrictions/Additional Instructions: Return to the emergency department for uncontrolled vomiting, abnormal heart rhythm, or other concerns. Coding Level of Care Code ED Quality Assurance Advisor for Pravin Fwd 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
[2021-10-07] MEDS: ondansetron 4 MG Tablet PO (06:44)
[2021-10-07 06:49] VITALS: BP 94/71; PULSE 70; RESP 17; O2SAT 96
[2021-10-07 07:51] VITALS: BP 94/75; PULSE 75; RESP 17; O2SAT 97
--- NOTE | 2021-10-07 08:57 | ECG_ITS ---
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 Measurements Intervals [place] Rate: 90 P: 62 ND: 180 QRS: 68 QRSD: 89 T: 51 QT: 377 QTc: 462 Interpretive Statements SINUS RHYTHM Compared to ECG 09/17/2021 08:41:03 Sinus tachycardia no longer present Electronically Signed On 10-07-2021 20:47:33 MENTAL HEALTH NURSE by Monica Cortez M.D. [id number]
== END 2021-10-07 07:52 | disposition home or self-care (01) ==
PROVIDERS: Emergency Provider Emergency Medicine; PCP Family Medicine
DX: R00.0 Tachycardia, unspecified (principal); R11.0 Nausea
CPT/HCPCS: 93005; 99283; Q0162

== ENCOUNTER → 2021-11-22 10:56 | Outpatient (BNVA) | payer MEDICAID, SELFPAY | PROVIDERS: PCP Family Medicine; Visit Provider Nurse Practitioner | DX: N76.0 Acute vaginitis (principal); B96.89 Other specified bacterial agents as the cause of diseases classified elsewhere | CPT/HCPCS: 81000 ==

== ENCOUNTER → 2022-03-17 09:41 | Outpatient (BNVA) | payer MEDICAID, SELFPAY | PROVIDERS: Visit Provider Counselor Mental Health | DX: F41.1 Generalized anxiety disorder (principal) | CPT/HCPCS: 90791 ==

== ENCOUNTER 2022-05-07 17:36 | Observation (INO) | payer MEDICAID, SELFPAY ==
[2022-05-07] VITALS (15 sets, daily range): BP systolic 105–147; BP diastolic 70–97; PULSE 100–153; RESP 12–30; TEMP 36.5–37.2; O2SAT 95–98; BMI 15.7
--- NOTE | 2022-05-07 17:46 | XRR_ITS ---
PROCEDURE INFORMATION: Exam: XR Chest Exam date and time: 05/07/2022 6:26 PM Age: 36 years old Clinical indication: Angina; Additional info: Chest pain TECHNIQUE: Imaging protocol: Radiologic exam of the chest. Views: 1 view. COMPARISON: CR XR chest 2V* [id number] 07/06/2021 1:03 PM FINDINGS: Lungs: Unremarkable. No consolidation. Pleural spaces: Unremarkable. No pleural effusion. No pneumothorax. Heart/Mediastinum: Unremarkable. No cardiomegaly. Bones/joints: No acute abnormality. XR/XR chest 1V portable [id number] IMPRESSION: No acute findings. Unchanged exam.
--- NOTE | 2022-05-07 17:58 | ECG_ITS ---
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 Measurements Intervals [place] Rate: 141 P: 100 [place]: 140 QRS: 105 QRSD: 78 T: 122 QT: 328 QTc: 503 Interpretive Statements SINUS TACHYCARDIA, POSSIBLE ATRIAL FLUTTER ARM LEADS REVERSED [INVERTED P AND QRS IN I] ABNORMAL RHYTHM ECG Compared to ECG 10/07/2021 06:26:11 Sinus rhythm no longer present Electronically Signed On 05-08-2022 11:56:24 CDT by Ace Moses M.D. [email or web address] Beet[facility] [email or web address] [email or web address].TCHO/store/NU/[id number] cary
--- NOTE | 2022-05-07 18:14 | W.ED.CHESTPA ---
HPI - Chest Pain General: Chief Complaint: Chest Pain Stated Complaint: Chest Pain, SOB Time Seen by Provider: 05/07/22 18:03 PFSH ED PFSH: Medical History (Updated 04/16/22 @ 12:34 by Abiola Forde [facility]) Generalized anxiety disorder Generalized anxiety disorder Major depressive disorder, recurrent, in remission Major depressive disorder, recurrent, moderate Psychiatric care Social History Smoking and tobacco status: never smoked History of recent travel: No Course Vital Signs: Vital signs: Vital Signs Temperature 97.7 F 05/07/22 17:51 Pulse Rate 153 H 05/07/22 17:51 Respiratory Rate 16 05/07/22 17:51 Blood Pressure 130/87 05/07/22 17:51 Pulse Oximetry 97 05/07/22 17:51 Oxygen Delivery Me thod Nasal Cannula 05/07/22 17:51 MDM - Chest Pain Lab Data : 05/07/22 18:00 Discharge Plan Discharge Condition: Stable Prescriptions: No Action clonazepam 0.5 mg tablet 0.5 mg PO TID PRN (Reason: anxiety) Qty: 90 1RF ibuprofen [Advil] 200 mg Tablet 800 mg PO Q4H PRN (Reason: Pain) Referrals: [facility], [Primary Care Provider] - Coding Level of Care Code ED Absorption And Adsorption Engineer for Pravin Nunes
[2022-05-07] MEDS: ondansetron 2 mg/ML SDV 2 mL 4 MG IVP (18:32)
[2022-05-07] MEDS: LORazepam 2 mg Tablet PO (18:32)
[2022-05-07] MEDS: acetaminophen 500 mg Tablet PO (18:32)
[2022-05-07] MEDS: sodium chloride 0.9% 1,000 ML 999 ML IV ×2 (18:34→23:14)
[2022-05-07 18:48] LABS: Basophils # 0.1 10^3/uL (0.0-0.1); Basophils % 0.6 %; Hematocrit 41.2 % (37.0-47.0); Hemoglobin 14.6 g/dL (11.5-15.3); Lymphocytes # 0.6 10^3/uL (0.8-4.8); Lymphocytes % 8.1 %; Mean Corpuscular HGB Conc 35.4 g/dL (30.0-36.0); Mean Corpuscular Hemoglobin 29.7 pg (28.0-34.0); Mean Corpuscular Volume 83.9 fl (81-99); Mean Platelet Volume 9.5 fL (7.4-10.4); Monocytes # 0.1 10^3/uL (0.2-0.9); Monocytes % 1.1 %; Neutrophils # 7.08 10^3/uL (1.8-7.7); Neutrophils % 89.8 %; Nucleated Red Blood Cells % 0 %; Platelet Count 342 10^3/cmm (130-400); Red Blood Count 4.91 10^6/uL (4.1-5.3); Red Cell Distribution Width 13.3 % (12.1-15.1); White Blood Count 7.9 10^3/uL (4.0-10.0)
[2022-05-07 18:51] LABS: D Dimer 0.76 ug/mIFEU (0-0.59)
[2022-05-07 18:54] LABS: HCG, Serum Qual Negative (Negative)
--- NOTE | 2022-05-07 18:56 | ED_ITS ---
HPI - General Adult General: Chief complaint: Chest Pain Stated complaint: Chest Pain, SOB Time Seen by Provider: 05/07/22 18:03 History of Present Illness: Patient is a 36-year-old female with generalized anxiety, depression, recurrent tachycardia who is the emergency room with 1 day of chest pain, shortness of breath and tachycardia. Patient tells me that yesterday she has been feeling well and has experienced chills. Patient reports shortness of breath yesterday evening. Patient checked her heart rate and noticed that her heart rate in the 140 yesterday night with numbness in her hands. Patient did not want to come to the emergency room till today. Patient has had 3 COVID tests all of which were negative. Patient throughout the day has had intermittent sternal chest pain. Patient denies any fever/chills, cough, runny nose, sore throat, diarrhea, melena or hematochezia. Patient has no complaint abdominal complaints. DVT/PE. Patient denies any hemopt ysis or OCP use. No family history of cardiac disease. In addition, patient tells me that in the past she has been worked up for tachycardia. Patient has seen Dr. Moses from cardiology Dr. Ayala. Onset: 1 day ago Duration:1 day Location:home Severity:moderate Associated symptoms: Reports chest pain and dyspnea; Deny nausea, rash, palpitations or vomiting Review of Systems Const: Reports: chills; Denies: fever(s) Eyes: Denies: change in vision ENMT: Denies: mouth pain Card: Reports: chest pain; Denies: palpitations Resp: Reports: dyspnea; Denies: non-productive cough GI: Denies: abdominal pain, nausea, vomiting or diarrhea : Denies: dysuria Musc: Reports: other (+b/l upper arm paresthesia); Denies: extremity pain Skin/Breast: Denies: rash or new lesions Neuro: Denies: weakness in extremities Psych: Reports: other (Normal mood) Kody/Lymph: Denies: easy bruising PFS ED PFSH: Medical History (Updated 05/07/22 @ 20:01 by Naohmy Russell MD) Generalized anxiety disorder Generalized anxiety disorder Major depressive disorder, recurrent, in remission Major depressive disorder, recurrent, moderate Psychiatric care Surgical History (Updated 05/07/22 @ 20:10 by Nahomy Russell MD) H/O: hysterectomy Social History (Updated 05/07/22 @ 20:10 by Nahomy Russell MD) Smoking and tobacco status: never smoked Alcohol intake: never Substance/Drug Use: never History of recent travel: No Physical Exam Const: COMMON NORMALS: alert HENMT: COMMON NORMALS: atraumatic HEAD & SCALP: atraumatic MOUTH: moist mucous membranes not abnormal Eye: COMMON NORMALS: EOMs intact bilaterally and conjunctivae normal CONJUNCTIVA: Yes conjunctivae normal Neck/C-Spine: COMMON NORMALS: full ROM and supple Resp: COMMON NORMALS: normal respiratory effort and clear to auscultation bilaterally AUSCULTATION: clear to auscultation bilaterally Cardio: RATE: tachycardic GI: COMMON NORMALS: Soft to palpation and non-tender PALPATION: Yes Soft to palpation OTHER: 2+ radial pusles b/l Extremity: COMMON NORMALS: full ROM OTHER: +no hoamn's sign Neuro: SENSORIUM/ORIENTATION: Yes alert MOTOR EXAM: No Abnormal motor strength present and Other motor observations present (no focal motor deficits) Psych: COMMON NORMALS: speech normal SPEECH: Yes normal speech MOOD & AFFECT: Yes euthymic mood Course Vital Signs: Vital signs: Vital Signs Temperature 97.7 F 05/07/22 17:51 Pulse Rate 113 H 05/07/22 19:00 Respiratory Rate 14 05/07/22 19:54 Blood Pressure 105/86 05/07/22 19:00 Pulse Oximetry 98 05/07/22 19:00 Oxygen Delivery Me thod 05/07/22 18:45 MDM - General Adult Medical Decision Making 36-year-old female history of generalized anxiety disorder, depression recurrent tachycardia who presents to the emergency room for evaluation of chest pain, short from tachycardia since yesterday. On physical exam, patient is hemodynamically stable other than tachycardia to the 130s to 150s. Patient is in moderate distress. Received multiple doses of pain medicine in the emergency room. Patient received 10 mg of metoprolol, 2 L of fluids with improvement heart rate. D- dimer appears to be elevated. CT chest showed left lingula PE. Patient continues to have moderate amount of pain. Potassium 2.9. Patient received p.o. potassium. Disposition: admission Lab Data : 05/07/22 18:00 05/07/22 18:00 Radiology Impressions Chest X-Ray 05/07/22 17:46 IMPRESSION: No acute findings. Unchanged exam. Chest CTA 05/07/22 19:00 IMPRESSION: Small distal branches of the pulmonary arteries in the lingula are poorly opacified concerning for small distal pulmonary embolus. No central or saddle embolus. No right heart strain. ADDENDUM: 05/07/221999 THIS REPORT CONTAINS FINDINGS THAT MAY BE CRITICAL TO PATIENT CARE. The findings were verbally communicated via telephone conference with NAHOMY RUSSELL at 7:57 PM CDT on 05/07/2022. The findings were acknowledged and understood. Laboratory Results WBC 7.9 10^3/uL (4.0-10.0) 05/07/22 18:00 RBC 4.91 10^6/uL (4.1-5.3) 05/07/22 18:00 Hgb 14.6 g/dL (11.5-15.3) 05/07/22 18:00 Hct 41.2 % (37.0-47.0) 05/07/22 18:00 MCV 83.9 fl (81-99) 05/07/22 18:00 MCH 29.7 pg (28.0-34.0) 05/07/22 18:00 MCHC 35.4 g/dL (30.0-36.0) 05/07/22 18:00 RDW 13.3 % (12.1-15.1) 05/07/22 18:00 Plt Count 342 10^3/cmm (130-400) 05/07/22 18:00 MPV 9.5 fL (7.4-10.4) 05/07/22 18:00 Neut % (Auto) 89.8 % 05/07/22 18:00 Lymph % (Auto) 8.1 % 05/07/22 18:00 [place] % (Auto) 1.1 % 05/07/22 18:00 Eos % (Auto) 0.0 % 05/07/22 18:00 Baso % (Auto) 0.6 % 05/07/22 18:00 Neut # (Auto) 7.08 10^3/uL (1.8-7.7) 05/07/22 18:00 Lymph # (Auto) 0.6 10^3/uL (0.8-4.8) L 05/07/22 18:00 [place] # (Auto) 0.1 10^3/uL (0.2-0.9) L 05/07/22 18:00 Eos # (Auto) 0.0 10^3/uL (0.0-0.8) 05/07/22 18:00 Baso # (Auto) 0.1 10^3/uL (0.0-0.1) 05/07/22 18:00 Nucleated RBC % (auto) 0 % 05/07/22 18:00 Nucleated RBCs # 0.0 /100WBC 05/07/22 18:00 D-Dimer 0.76 ug/mIFEU (0-0.59) H 05/07/22 18:00 Sodium 137 mmol/L (136-145) 05/07/22 18:00 Potassium 2.9 mmol/L (3.5-5.1) L 05/07/22 18:00 Chloride 95 mmol/L (98-107) L 05/07/22 18:00 Carbon Dioxide 25 mmol/L (22-29) 05/07/22 18:00 Anion Gap 19.9 (5-19) H 05/07/22 18:00 BUN 9 mg/dL (6-20) 05/07/22 18:00 Creatinine 0.7 mg/dL (0.5-0.9) 05/07/22 18:00 GFR Calculation 93.6 mL/min (90-130) 05/07/22 18:00 Glucose 139 mg/dL (65-115) H 05/07/22 18:00 Calculated Osmolality 285 mOsm/kg (285-295) 05/07/22 18:00 Calcium 9.5 mg/dL (8.5-10.5) 05/07/22 18:00 Magnesium 2.0 mg/dL (1.7-2.3) 05/07/22 18:00 Total Bilirubin 0.8 mg/dL (0.15-1.2) 05/07/22 18:00 AST 38 U/L (0-32) H 05/07/22 18:00 ALT 39 U/L (0-33) H 05/07/22 18:00 Alkaline Phosphatase 58 IU/L (35-105) 05/07/22 18:00 Troponin T Baseline 6 ng/L (0-10) 05/07/22 18:00 Total Protein 7.5 g/dL (6.6-8.7) 05/07/22 18:00 Albumin 4.8 g/dL (3.5-5.2) 05/07/22 18:00 Globulin 2.7 g/dL (1.3-4.6) 05/07/22 18:00 TSH 0.90 uIU/mL (0.27-4.20) 05/07/22 18:00 HCG, Qual Negative (Negative) 05/07/22 18:00 Imaging Data Other Imaging: Radiologist's impression: [address] [address] [address] Scan Report Signed with Addenda Patient: Anayeli Herrera Unit #: [id number] : 1985 Age/Sex: 36 / F ADM Date: 05/07/22 Loc: ER Room/Bed: Attending Dr: Ordering Provider/Ordering MD: Nahomy Russell MD Date of Service: 05/07/22 Procedure(s): CT angio chest PE protcl [id number] Accession Number(s): [id number] Report Number: [id number]/CT angio chest PE protcl [id number] THIS REPORT CONTAINS FINDINGS THAT MAY BE CRITICAL TO PATIENT CARE. The findings were verbally communicated via telephone conference with NAHOMY RUSSELL at 7:57 PM CDT on 05/07/2022. The findings were acknowledged and understood. ? Addendum Dictated By: ?Audrey Alvarado Addendum Signed By: ?Audrey Alvarado Signed Date/Time: 05/07/221999 Addendum Cosigned By: ? PROCEDURE INFORMATION: Exam: CTA Chest With Contrast Exam date and time: 05/07/2022 7:31 PM Age: 36 years old Clinical indication: Sternal or substernal pain; Patient HX: Cp, SOB, tachy, elev d-dimer x 2 days; Additional info: Tachycardia, elevated hr TECHNIQUE: Imaging protocol: Computed tomographic angiography of the chest with contrast. 3D rendering (Not supervised by radiologist): MIP and/or 3D reconstructed images were created by the technologist. Radiation optimization: All CT scans at this facility use at least one of these dose optimization techniques: automated exposure control; mA and/or kV adjustment per patient size (includes targeted exams where dose is matched to clinical indication); or iterative reconstruction. Contrast material: OMNI 350; Contrast volume: 48 ml; Contrast route: INTRAVENOUS (IV);? COMPARISON: CTA Chest w Abd/Pel w* 11/13/2017 2:55 PM RADIATION DOSE METRICS: Total DLP (mGy-cm): 189.04 FINDINGS: Pulmonary arteries: A few small distal branches in the lingula are poorly opacified compared to the other pulmonary arteries concerning for small distal subsegmental pulmonary emboli as seen on series 4 image 44 through 52. No additional emboli are identified. Aorta: Unremarkable. No aortic aneurysm. No aortic dissection. Lungs: Unremarkable. No consolidation. No masses. Pleural spaces: Unremarkable. No pneumothorax. No pleural effusion. Heart: There is no right heart strain. Heart RV/LV ratio: The RV/LV ratio is 0.58 Lymph nodes: Unremarkable. No enlarged lymph nodes. Gallbladder and bile ducts: There has been a cholecystectomy. Spleen: The spleen is normal. An accessory splenule is present. Bones/joints: Unremarkable. No acute fracture. Soft tissues: There are bilateral breast implants. CT/CT angio chest PE protcl [id number] IMPRESSION: Small distal branches of the pulmonary arteries in the lingula are poorly opacified concerning for small distal pulmonary embolus. No central or saddle embolus. No right heart strain. ? Dictated By: Audrey Alvarado Signed By: Audrey Alvarado Signed Date/Time: 05/07/221954 DD/ [address] [address] XRay Report Signed Patient: Anayeli Herrera Unit #: [id number] : 1985 Age/Sex: 36 / F ADM Date: 05/07/22 Loc: ER Room/Bed: Attending Dr: Ordering Provider/Ordering MD: Bridget Morris Date of Service: 05/07/22 Procedure(s): XR chest 1V portable [id number] Accession Number(s): [id number] Report Number: [id number] PROCEDURE INFORMATION: Exam: XR Chest Exam date and time: 05/07/2022 6:26 PM Age: 36 years old Clinical indication: Angina; Additional info: Chest pain TECHNIQUE: Imaging protocol: Radiologic exam of the chest. Views: 1 view. COMPARISON: CR XR chest 2V* [id number] 07/06/2021 1:03 PM FINDINGS: Lungs: Unremarkable. No consolidation. Pleural spaces: Unremarkable. No pleural effusion. No pneumothorax. Heart/Mediastinum: Unremarkable. No cardiomegaly. Bones/joints: No acute abnormality. XR/XR chest 1V portable [id number] IMPRESSION: No acute findings.? Unchanged exam. ? Dictated By: Audrey Alvarado Signed By: Audrey Alvarado Signed Date/Time: 05/07/221854 DD/ 25 Discharge Plan Discharge Patient Disposition: Admitted As Inpatient Clinical Impression: Chest pain, Tachycardia, Dyspnea, Pulmonary embolism, Hypokalemia Condition: Stable Discharge Diet: Advance as tolerated Discharge Activity: Increase activity as tolerated Coding Level of Care Code ED Pattern Chain Builder for Chg Fwd 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
--- NOTE | 2022-05-07 19:00 | CTR_ITS ---
PROCEDURE INFORMATION: Exam: CTA Chest With Contrast Exam date and time: 05/07/2022 7:31 PM Age: 36 years old Clinical indication: Sternal or substernal pain; Patient HX: Cp, SOB, tachy, elev d-dimer x 2 days; Additional info: Tachycardia, elevated hr TECHNIQUE: Imaging protocol: Computed tomographic angiography of the chest with contrast. 3D rendering (Not supervised by radiologist): MIP and/or 3D reconstructed images were created by the technologist. Radiation optimization: All CT scans at this facility use at least one of these dose optimization techniques: automated exposure control; mA and/or kV adjustment per patient size (includes targeted exams where dose is matched to clinical indication); or iterative reconstruction. Contrast material: OMNI 350; Contrast volume: 48 ml; Contrast route: INTRAVENOUS (IV); COMPARISON: CTA Chest w Abd/Pel w* 11/13/2017 2:55 PM RADIATION DOSE METRICS: Total DLP (mGy-cm): 189.04 FINDINGS: Pulmonary arteries: A few small distal branches in the lingula are poorly opacified compared to the other pulmonary arteries concerning for small distal subsegmental pulmonary emboli as seen on series 4 image 44 through 52. No additional emboli are identified. Aorta: Unremarkable. No aortic aneurysm. No aortic dissection. Lungs: Unremarkable. No consolidation. No masses. Pleural spaces: Unremarkable. No pneumothorax. No pleural effusion. Heart: There is no right heart strain. Heart RV/LV ratio: The RV/LV ratio is 0.58 Lymph nodes: Unremarkable. No enlarged lymph nodes. Gallbladder and bile ducts: There has been a cholecystectomy. Spleen: The spleen is normal. An accessory splenule is present. Bones/joints: Unremarkable. No acute fracture. Soft tissues: There are bilateral breast implants. CT/CT angio chest PE protcl [id number] IMPRESSION: Small distal branches of the pulmonary arteries in the lingula are poorly opacified concerning for small distal pulmonary embolus. No central or saddle embolus. No right heart strain.
[2022-05-07 19:03] LABS: Alanine Aminotransferase 39 U/L (0-33); Albumin Level 4.8 g/dL (3.5-5.2); Alkaline Phosphatase 58 IU/L (35-105); Anion Gap 19.9 (5-19); Aspartate Amino Transferase 38 U/L (0-32); Blood Urea Nitrogen 9 mg/dL (6-20); Calcium 9.5 mg/dL (8.5-10.5); Carbon Dioxide 25 mmol/L (22-29); Chloride 95 mmol/L (98-107); Globulin 2.7 g/dL (1.3-4.6); Glomerular Filtration Rate 93.6 mL/min (90-130); Glucose 139 mg/dL (65-115); Osmolality Calculated 285 mOsm/kg (285-295); Sodium 137 mmol/L (136-145); Total Bilirubin 0.8 mg/dL (0.15-1.2); Total Protein 7.5 g/dL (6.6-8.7)
[2022-05-07 19:27] LABS: Troponin(5th) Baseline 6 ng/L (0-10)
[2022-05-07 19:38] LABS: Potassium 2.9 mmol/L (3.5-5.1)
[2022-05-07] MEDS: iohexol 350 mg/mL 100 mL Btl IV (19:41)
--- NOTE | 2022-05-07 19:47 | ECG_ITS ---
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 Measurements Intervals [place] Rate: 125 P: 57 [place]: 155 QRS: 81 QRSD: 81 T: 74 QT: 400 QTc: 577 Interpretive Statements SINUS TACHYCARDIA POSSIBLE RIGHT VENTRICULAR CONDUCTION DELAY [RSR (QR) IN V1/V2] NONSPECIFIC T-WAVE ABNORMALITY ABNORMAL RHYTHM ECG Compared to ECG 05/07/2022 17:58:54 T-wave abnormality now present Electronically Signed On 05-08-2022 11:59:57 CDT by Ace Moses M.D. [id number]
[2022-05-07] MEDS: metoprolol tartrate 1 mg/1 mL SDV 5 mL 5 MG IVP (19:54)
[2022-05-07] MEDS: potassium chloride ER 20 mEq Tablet 40 MEQ PO (19:54)
[2022-05-07] MEDS: fentaNYL 50 mcg/mL INJ 2mL IVP (19:54)
[2022-05-07 20:37] LABS: Free T4 Free Thyroxine 1.38 ng/dL (0.82-1.77)
[2022-05-07 20:56] LABS: Troponin 5 2HR Delta 0 ABS# (0-10)
--- NOTE | 2022-05-07 23:39 | P.HP_ITS ---
Providers/Chief Complaint Admitting Physician: Kalyn Garnica MD Primary Care Provider: [employer] Chief Complaint: Chest Pain, SOB History of Present Illness Anayeli Herrera is a 36 year old female with past medical history of migraines, SVT, generalized anxiety disorder, major depressive disorder presented to the emergency room with chief complains of headache, low-grade fever of 100.8 Fahrenheit that started yesterday. 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 He continued to feel poorly at night, started experiencing shortness of breath, home O2 sats ranged between 89 to 92% following which she presented to the her primary care physician. Reportedly she was noted to have diffuse wheezing and received a shot of steroids and nebulization and was referred to come to the emergency room. Here she is noted to be saturating 97% on room air. She is tachycardic with heart rate between 100 to 110/min, afebrile. CTA of the chest was performed which showed distal pulmonary embolus in the lingula. She has not noticed any swelling in her legs. No recent history of prolonged travel. She is not currently on any contraceptives. She has a history of hysterectomy due to endometriosis several years ago. He has a history of recurrent losses and reportedly was evaluated for lupus several years ago, however testing remained nondiagnostic per her history. Review of Systems General: Reports: 10 or more systems reviewed and unremarkable except in HPI and below Const: Denies: fever(s), chills or body aches Eyes: Denies: change in vision, blurry vision or photophobia ENMT: Reports: hoarseness; Denies: throat pain, enlarged tonsils, odynophagia or nasal congestion Card: Denies: chest pain, palpitations, irregular heart rhythm, edema, s welling of feet/ankles, lightheadedness, pre-syncope, dyspnea on exertion or orthopnea Resp: Denies: dyspnea, productive cough, non-productive cough, wheezing, stridor, pain on inspiration, change in phlegm color, hemoptysis or chest congestion GI: Denies: abdominal pain, nausea, vomiting, hematemesis, coffee ground emesis, dysphagia, heartburn, diarrhea, constipation, GI cramping, change in stool character, hematochezia or melena : Denies: flank pain, difficulty voiding, dysuria, urinary frequency, uri nary urgency, urinary hesitancy or hematuria Musc: Denies: neck pain, back pain, extremity pain, joint swelling, joint warmth or deformity Neuro: Denies: headache(s), numbness in extremities, weakness in extremities, sensory changes, difficulty walking, frequent falls, dizziness, vertigo, behavioral changes, Slurred speech present or seizure-like activity Psych: Denies: anxiety, depression, suicidal ideation or homicidal ideation Endo: Denies: polyuria, polydipsia, tired all the time, cold intolerance or hot flashes Kody/Lymph: Denies: easy bruising or easy bleeding Medications/Allergies Home Medications Medication Instructions Recorded Confirmed Last Taken Type ibuprofen 200 mg tablet (Advil) 800 mg PO Q4H PRN Pain 07/02/21 04/16/22 07/02/21 04:30 History 800 mg clonazepam 0.5 mg tablet 0.5 mg PO TID PRN anxiety #90 tabs 04/16/22 04/16/22 Unknown Rx acetaminophen 500 mg tablet 500 mg PO Q6H PRN pain 5 days #20 05/07/22 Unknown Rx tabs Allergies Allergy/AdvReac Type Severity Reaction Status Date / Time No Known Allergies Allergy Verified 04/16/22 11:42 PFSH Acute PFSH: Medical History Generalized anxiety disorder Generalized anxiety disorder Major depressive disorder, recurrent, in remission Major depressive disorder, recurrent, moderate Psychiatric care Surgical History H/O: hysterectomy Social History Smoking and tobacco status: never smoked Alcohol intake: never Substance/Drug Use: never History of recent travel: No Vitals/I&O/Wt Last Vital Signs Temp 98.3 F 05/07/22 21:54 Pulse 102 H 05/07/22 21:54 Resp 16 05/07/22 21:54 BP 107/70 05/07/22 21:54 Pulse Ox 96 05/07/22 21:54 O2 Del Method 05/07/22 21:54 05/07/22 05/07/22 05/08/22 14:59 22:59 06:59 Intake Total 1000 / 1000 Balance 1000 / 1000 Weight last 48 hrs Weight 49.895 kg Physical Exam Narrative: General: No acute distress, AO x3 HEENT: PERRLA, pupils bilaterally equal and reactive, pallors not present Chest: Normal vesicular breath sounds, no added sounds, equal good air entry bilaterally CVS: S1-S2 regular, no murmurs, no tachycardia, no gallops, no rubs Abdomen: Soft, nontender, no organomegaly, bowel sounds present Neuro: No focal deficits, no facial deformity, AO x3, power 5/5 in all limbs Data : 05/07/22 18:00 05/07/22 18:00 Other Labs: Radiology Impressions Chest X-Ray 05/07/22 17:46 IMPRESSION: No acute findings. Unchanged exam. Chest CTA 05/07/22 19:00 IMPRESSION: Small distal branches of the pulmonary arteries in the lingula are poorly opacified concerning for small distal pulmonary embolus. No central or saddle embolus. No right heart strain. ADDENDUM: 05/07/221999 THIS REPORT CONTAINS FINDINGS THAT MAY BE CRITICAL TO PATIENT CARE. The findings were verbally communicated via telephone conference with MAI CARRERA at 7:57 PM CDT on 05/07/2022. The findings were acknowledged and understood. Laboratory Results WBC 7.9 10^3/uL (4.0-10.0) 05/07/22 18:00 RBC 4.91 10^6/uL (4.1-5.3) 05/07/22 18:00 Hgb 14.6 g/dL (11.5-15.3) 05/07/22 18:00 Hct 41.2 % (37.0-47.0) 05/07/22 18:00 MCV 83.9 fl (81-99) 05/07/22 18:00 MCH 29.7 pg (28.0-34.0) 05/07/22 18:00 MCHC 35.4 g/dL (30.0-36.0) 05/07/22 18:00 RDW 13.3 % (12.1-15.1) 05/07/22 18:00 Plt Count 342 10^3/cmm (130-400) 05/07/22 18:00 MPV 9.5 fL (7.4-10.4) 05/07/22 18:00 Neut % (Auto) 89.8 % 05/07/22 18:00 Lymph % (Auto) 8.1 % 05/07/22 18:00 Coffee % (Auto) 1.1 % 05/07/22 18:00 Eos % (Auto) 0.0 % 05/07/22 18:00 Baso % (Auto) 0.6 % 05/07/22 18:00 Neut # (Auto) 7.08 10^3/uL (1.8-7.7) 05/07/22 18:00 Lymph # (Auto) 0.6 10^3/uL (0.8-4.8) L 05/07/22 18:00 Coffee # (Auto) 0.1 10^3/uL (0.2-0.9) L 05/07/22 18:00 Eos # (Auto) 0.0 10^3/uL (0.0-0.8) 05/07/22 18:00 Baso # (Auto) 0.1 10^3/uL (0.0-0.1) 05/07/22 18:00 Nucleated RBC % (auto) 0 % 05/07/22 18:00 Nucleated RBCs # 0.0 /100WBC 05/07/22 18:00 D-Dimer 0.76 ug/mIFEU (0-0.59) H 05/07/22 18:00 Sodium 137 mmol/L (136-145) 05/07/22 18:00 Potassium 2.9 mmol/L (3.5-5.1) L 05/07/22 18:00 Chloride 95 mmol/L (98-107) L 05/07/22 18:00 Carbon Dioxide 25 mmol/L (22-29) 05/07/22 18:00 Anion Gap 19.9 (5-19) H 05/07/22 18:00 BUN 9 mg/dL (6-20) 05/07/22 18:00 Creatinine 0.7 mg/dL (0.5-0.9) 05/07/22 18:00 GFR Calculation 93.6 mL/min (90-130) 05/07/22 18:00 Glucose 139 mg/dL (65-115) H 05/07/22 18:00 Calculated Osmolality 285 mOsm/kg (285-295) 05/07/22 18:00 Calcium 9.5 mg/dL (8.5-10.5) 05/07/22 18:00 Magnesium 2.0 mg/dL (1.7-2.3) 05/07/22 18:00 Total Bilirubin 0.8 mg/dL (0.15-1.2) 05/07/22 18:00 AST 38 U/L (0-32) H 05/07/22 18:00 ALT 39 U/L (0-33) H 05/07/22 18:00 Alkaline Phosphatase 58 IU/L (35-105) 05/07/22 18:00 Troponin T Baseline 6 ng/L (0-10) 05/07/22 18:00 Troponin T 120 Minute 6.00 ng/L (0-10) 05/07/22 20:10 Delta Troponin T 0 ABS# (0-10) 05/07/22 20:10 Troponin T Hi Sens 6Hr 7.06 ng/L (0-10) 05/07/22 23:57 Troponin T Hi Sens 6Hr Delta 1.06 ng/L (0-12) 05/07/22 23:57 Total Protein 7.5 g/dL (6.6-8.7) 05/07/22 18:00 Albumin 4.8 g/dL (3.5-5.2) 05/07/22 18:00 Globulin 2.7 g/dL (1.3-4.6) 05/07/22 18:00 TSH 0.90 uIU/mL (0.27-4.20) 05/07/22 18:00 Free T4 1.38 ng/dL (0.82-1.77) 05/07/22 18:00 HCG, Qual Negative (Negative) 05/07/22 18:00 SARS-CoV-2 Ag (Rapid) Negative (Negative) 05/07/22 23:00 A&P Assessment and plan (1) Pulmonary embolism: Small distal pulmonary embolus. No central or saddle embolus. No right heart strain. Start Lovenox 1 mg/kg every 12 hours. Check lower extremity Doppler History of COVID-19 in November 2021. She has been experiencing some low-grade fevers and works in a [place] [facility] [place] currently where she has multiple positive exposures. Will check COVID PCR as it may explain thromboembolism. Currently saturating well on room air. If remains hemodynamically stable and without hypoxia, can likely transition to Eliquis in the upcoming 24 hours. May benefit from outpatient evaluation before prothrombotic states given additional past history of recurrent losses. Status: Acute Attestations Medical Necessity Statement*: Anticipate less than 2 midnight admission for distal pulmonary embolus, evaluation and initiation of anticoagulation. 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
--- NOTE | 2022-05-07 23:47 | ECG_ITS ---
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 Measurements Intervals [place] Rate: 104 P: 54 [place]: 167 QRS: 70 QRSD: 77 T: 55 QT: 369 QTc: 486 Interpretive Statements SINUS TACHYCARDIA ABNORMAL RHYTHM ECG Compared to ECG 05/07/2022 19:47:37 T-wave abnormality no longer present Electronically Signed On 05-08-2022 12:00:42 CDT by Ace Moses M.D. [email or web address] regional medical [email or web address] Memorial [email or web address] [id number]
[2022-05-07 23:54] LABS: SARS Covid-2 Antigen Negative (Negative)
[2022-05-08] VITALS (11 sets, daily range): BP systolic 96–110; BP diastolic 58–75; PULSE 78–109; RESP 14–18; TEMP 36.7–36.8; O2SAT 93–98
[2022-05-08] MEDS: enoxaparin 60 mg/0.6 mL Syringe 50 MG SUBCUT ×2 (00:45→12:13)
[2022-05-08] MEDS: acetaminophen 325 mg Tablet 650 MG PO (00:47)
[2022-05-08 00:57] LABS: Troponin 5 6HR 7.06 ng/L (0-10)
[2022-05-08] MEDS: morphine 4 mg/mL SDV 1 mL 2 MG IVP ×2 (01:02→05:16)
[2022-05-08 01:05] LABS: Troponin 5 6HR Delta 1.06 ng/L (0-12)
[2022-05-08 06:42] LABS: Hematocrit 35.5 % (37.0-47.0); Hemoglobin 12.3 g/dL (11.5-15.3); Lymphocytes # 1.1 10^3/uL (0.8-4.8); Lymphocytes % 16.7 %; Mean Corpuscular HGB Conc 34.6 g/dL (30.0-36.0); Mean Corpuscular Hemoglobin 29.6 pg (28.0-34.0); Mean Corpuscular Volume 85.3 fl (81-99); Mean Platelet Volume 9.5 fL (7.4-10.4); Monocytes # 0.4 10^3/uL (0.2-0.9); Monocytes % 6.2 %; Neutrophils % 76.5 %; Nucleated Red Blood Cells % 0 %; Platelet Count 300 10^3/cmm (130-400); Red Blood Count 4.16 10^6/uL (4.1-5.3); Red Cell Distribution Width 13.4 % (12.1-15.1); White Blood Count 6.4 10^3/uL (4.0-10.0)
[2022-05-08 07:12] LABS: Alanine Aminotransferase 26 U/L (0-33); Albumin Level 3.4 g/dL (3.5-5.2); Alkaline Phosphatase 47 IU/L (35-105); Anion Gap 13.3 (5-19); Aspartate Amino Transferase 21 U/L (0-32); Blood Urea Nitrogen 10 mg/dL (6-20); Calcium 8.7 mg/dL (8.5-10.5); Carbon Dioxide 24 mmol/L (22-29); Chloride 105 mmol/L (98-107); Globulin 2.3 g/dL (1.3-4.6); Glomerular Filtration Rate 138.1 mL/min (90-130); Glucose 185 mg/dL (65-115); Osmolality Calculated 292 mOsm/kg (285-295); Potassium 3.3 mmol/L (3.5-5.1); Sodium 139 mmol/L (136-145); Total Bilirubin 0.3 mg/dL (0.15-1.2); Total Protein 5.7 g/dL (6.6-8.7)
[2022-05-08] MEDS: pantoprazole DR 40 mg Tablet PO (08:21)
[2022-05-08] MEDS: morphine 4 mg/mL SDV 1 mL IVP (10:56)
--- NOTE | 2022-05-08 12:41 | CTR_ITS ---
PROCEDURE INFORMATION: Exam: CT Head Without Contrast Exam date and time: 05/08/2022 3:45 PM Age: 36 years old Clinical indication: Weakness, extremity; Bilateral; Patient HX: C/O upper extremity numbness/weakness l>r; Additional info: Numbness in left arm TECHNIQUE: Imaging protocol: Computed tomography of the head without contrast. Radiation optimization: All CT scans at this facility use at least one of these dose optimization techniques: automated exposure control; mA and/or kV adjustment per patient size (includes targeted exams where dose is matched to clinical indication); or iterative reconstruction. COMPARISON: CT head wo con* [id number] 07/06/2021 12:50 PM RADIATION DOSE METRICS: Total DLP (mGy-cm): 1021.18 FINDINGS: Brain: Normal. No hemorrhage. Unremarkable white matter. No mass effect. Cerebral ventricles: No ventriculomegaly. Paranasal sinuses: Visualized sinuses are unremarkable. No fluid levels. Mastoid air cells: Visualized mastoid air cells are well aerated. Bones/joints: Unremarkable. No acute fracture. Soft tissues: Unremarkable. CT/CT head wo con* [id number] IMPRESSION: No acute intracranial abnormality.
--- NOTE | 2022-05-08 12:42 | P.DS_ITS ---
Discharge Providers Date of Admission: 05/07/22 20:02 Date of Discharge: May 08, 2022 Attending Provider at Admission: Kalyn Garnica MD Attending Provider at Discharge: Jero Pacheco MD Primary Care Provider: [employer] Diagnoses at Discharge Discharge Diagnosis (1) Pulmonary embolism: Status: Acute Reason for Visit Reason for Visit: Chest Pain, SOB Hospital Course Hospital Course Anayeli Herrera is a 36 year old female with past medical history of migraines, SVT, generalized anxiety disorder, major depressive disorder presented to the emergency room with chief complains of headache, low-grade fever of 100.8 Fahrenheit that started yesterday.? 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 He continued to feel poorly at night, started experiencing shortness of breath, home O2 sats ranged between 89 to 92% following which she presented to the her primary care physician.? Reportedly she was noted to have diffuse wheezing and received a shot of steroids and nebulization, again tested negative for COVID-19 with rapid antigen and was referred to come to the emergency room.? Here she is noted to be saturating 97% on room air.? She is tachycardic with heart rate between 100 to 110/min, afebrile.? CTA of the chest was performed which showed distal pulmonary embolus in the lingula. She has not noticed any swelling in her legs.? No recent history of prolonged travel.? She is not currently on any contraceptives.? She has a history of hysterectomy due to endometriosis several years ago.? He has a history of recurrent first trimester losses and reportedly was evaluated for lupus several years ago, however testing remained nondiagnostic per her history. She denied any family history of thromboembolic events or descent. Patient was admitted to the hospital further evaluation and management. She was started on anticoagulation with Lovenox. Which were later transitioned to oral Eliquis. Further testing for thromboembolic disorder was sent out. Patient was complaining of occasional numbness of her left arm for last few days however CT head was done. She has been discharged in hemodynamically stable condition on oral Eliquis 10 mg twice daily for next 7 days followed by 5 mg twice daily. She is asked to follow-up with her primary care provider in 1 week for further evaluation and management coordination of thromboembolism. Home oxygen evaluation was done prior to discharge. All the questions were answered in detail. Physical Exam Narrative: General: No acute distress, AO x3, anxious HEENT: PERRLA, pupils bilaterally equal and reactive, pallors not present Chest: Normal vesicular breath sounds, no added sounds, equal good air entry bilaterally CVS: S1-S2 regular, no murmurs, no tachycardia, no gallops, no rubs Abdomen: Soft, nontender, no organomegaly, bowel sounds present Neuro: No focal deficits, no facial deformity, AO x3, power 5/5 in all limbs Discharge Data Studies Completed and Pending Completed Studies During Hospitalization Category Date Time Status CTA chest [CT angio chest PE protcl [id number]] Urgent Cat Scan 05/07/22 19:00 Completed XR chest 1V portable [id number] Urgent Exams 05/07/22 17:46 [place] [id number] Routine Ultrasound 05/08/22 23:37 Completed Pending at discharge Category Date Time Status CT head wo con* [id number] Routine Cat Scan 05/08/22 12:41 Ordered COVID [[facility] SARS-CoV-2 RNA] Routine Lab 05/08/22 04:00 Received Factor 5 Leiden Mutation Routine Lab 05/08/22 06:15 Received Factor VIII Activity Clotting Routine Lab 05/08/22 06:15 Received [facility] TRACY Profile Routine Lab 05/08/22 06:15 Received Von Willebrand Factor AG Routine Lab 05/08/22 06:15 Received Radiology Impressions Chest X-Ray 05/07/22 17:46 IMPRESSION: No acute findings. Unchanged exam. Chest CTA 05/07/22 19:00 IMPRESSION: Small distal branches of the pulmonary arteries in the lingula are poorly opacified concerning for small distal pulmonary embolus. No central or saddle embolus. No right heart strain. ADDENDUM: 05/07/221999 THIS REPORT CONTAINS FINDINGS THAT MAY BE CRITICAL TO PATIENT CARE. The findings were verbally communicated via telephone conference with MAI CARRERA at 7:57 PM CDT on 05/07/2022. The findings were acknowledged and understood. Venous Duplex 05/08/22 23:37 IMPRESSION: 1. No evidence of acute right lower extremity DVT. 2. No evidence of acute left lower extremity DVT. Laboratory Results WBC 6.4 10^3/uL (4.0-10.0) 05/08/22 06:15 RBC 4.16 10^6/uL (4.1-5.3) 05/08/22 06:15 Hgb 12.3 g/dL (11.5-15.3) 05/08/22 06:15 Hct 35.5 % (37.0-47.0) L 05/08/22 06:15 MCV 85.3 fl (81-99) 05/08/22 06:15 MCH 29.6 pg (28.0-34.0) 05/08/22 06:15 MCHC 34.6 g/dL (30.0-36.0) 05/08/22 06:15 RDW 13.4 % (12.1-15.1) 05/08/22 06:15 Plt Count 300 10^3/cmm (130-400) 05/08/22 06:15 MPV 9.5 fL (7.4-10.4) 05/08/22 06:15 Neut % (Auto) 76.5 % 05/08/22 06:15 Lymph % (Auto) 16.7 % 05/08/22 06:15 [place] % (Auto) 6.2 % 05/08/22 06:15 Eos % (Auto) 0.0 % 05/08/22 06:15 Baso % (Auto) 0.0 % 05/08/22 06:15 Neut # (Auto) 4.90 10^3/uL (1.8-7.7) 05/08/22 06:15 Lymph # (Auto) 1.1 10^3/uL (0.8-4.8) 05/08/22 06:15 [place] # (Auto) 0.4 10^3/uL (0.2-0.9) 05/08/22 06:15 Eos # (Auto) 0.0 10^3/uL (0.0-0.8) 05/08/22 06:15 Baso # (Auto) 0.0 10^3/uL (0.0-0.1) 05/08/22 06:15 Nucleated RBC % (auto) 0 % 05/08/22 06:15 Nucleated RBCs # 0.0 /100WBC 05/08/22 06:15 D-Dimer 0.76 ug/mIFEU (0-0.59) H 05/07/22 18:00 Sodium 139 mmol/L (136-145) 05/08/22 06:15 Potassium 3.3 mmol/L (3.5-5.1) L 05/08/22 06:15 Chloride 105 mmol/L (98-107) 05/08/22 06:15 Carbon Dioxide 24 mmol/L (22-29) 05/08/22 06:15 Anion Gap 13.3 (5-19) 05/08/22 06:15 BUN 10 mg/dL (6-20) 05/08/22 06:15 Creatinine 0.5 mg/dL (0.5-0.9) 05/08/22 06:15 GFR Calculation 138.1 mL/min (90-130) H 05/08/22 06:15 Glucose 185 mg/dL (65-115) H 05/08/22 06:15 Calculated Osmolality 292 mOsm/kg (285-295) 05/08/22 06:15 Calcium 8.7 mg/dL (8.5-10.5) 05/08/22 06:15 Magnesium 2.0 mg/dL (1.7-2.3) 05/07/22 18:00 Total Bilirubin 0.3 mg/dL (0.15-1.2) 05/08/22 06:15 AST 21 U/L (0-32) 05/08/22 06:15 ALT 26 U/L (0-33) 05/08/22 06:15 Alkaline Phosphatase 47 IU/L (35-105) 05/08/22 06:15 Troponin T Baseline 6 ng/L (0-10) 05/07/22 18:00 Troponin T 120 Minute 6.00 ng/L (0-10) 05/07/22 20:10 Delta Troponin T 0 ABS# (0-10) 05/07/22 20:10 Troponin T Hi Sens 6Hr 7.06 ng/L (0-10) 05/07/22 23:57 Troponin T Hi Sens 6Hr Delta 1.06 ng/L (0-12) 05/07/22 23:57 Total Protein 5.7 g/dL (6.6-8.7) L D 05/08/22 06:15 Albumin 3.4 g/dL (3.5-5.2) L 05/08/22 06:15 Globulin 2.3 g/dL (1.3-4.6) 05/08/22 06:15 TSH 0.90 uIU/mL (0.27-4.20) 05/07/22 18:00 Free T4 1.38 ng/dL (0.82-1.77) 05/07/22 18:00 HCG, Qual Negative (Negative) 05/07/22 18:00 SARS-CoV-2 Ag (Rapid) Negative (Negative) 05/07/22 23:00 Vitals Last Vital Signs Temp 98.3 F 05/08/22 04:00 Pulse 90 05/08/22 11:52 Resp 18 05/08/22 11:52 BP 105/65 05/08/22 11:52 Pulse Ox 95 05/08/22 11:52 O2 Del Method 05/07/22 21:54 Discharge Plan Discharge Patient Disposition: Home Condition: Stable Prescriptions: New Eliquis DVT-PE Treat 30D Start 5 mg (74 tabs) tablets,dose pack See Rx Instructions .ROUTE .COMPLEX Qty: 74 0RF Rx Instructions: orally per package directions tramadol 50 mg tablet 50 mg PO Q8H PRN (Reason: pain) Qty: 14 0RF Continued clonazepam 0.5 mg tablet 0.5 mg PO TID PRN (Reason: anxiety) Qty: 90 1RF Held triamterene-hydrochlorothiazid 37.5-25 mg tablet 1 tab PO DAILY Hold Instructions: Resume on 05/15/22. Discharge Orders: Discharge Order (Routine); Ordered 05/08/22 Ordered By: Jero Pacheco Referrals: [employer], [Primary Care Provider] - Discharge Diet: Advance as tolerated Discharge Activity: Increase activity as tolerated Patient Instructions: Tramadol (By mouth), Apixaban (By mouth) (Eliquis), Chest Pain (ED), Opioid Safety Activity Restrictions/Additional Instructions: Please follow-up with your primary care provider within next 1 week for further evaluation of thromboembolism. Take Eliquis 10 mg twice daily for next 1 week followed by 5 mg twice daily. For chest pain you can take tramadol 50 mg every 8 hourly as needed. You can also take [id number] Tylenol or ibuprofen. Please try to avoid taking more than 4 to 5 tablets of ibuprofen a week. Discharge Attestations Time Spent in Discharge Care*: greater than 30 min Specific Discharge Activities: educating patient, educating and/or supporting family/caregiver, discussing with caseworker protective services/social workers/dc planners, documenting/other paperwork and evaluating patient/reviewing data Status at Discharge: Cognitive status at discharge: cognitively intact , B ehavioral status at discharge: cooperative , Functional status at discharge: independent ambulation , Overall status at discharge: patient is progressing back to baseline Quality Metrics Clinical Quality Measures [ Venous Thromboembolism { Contraindication to Overlap Therapy: None; Overlap threrpy ordered; VTE Discharge Education: Education about anticoagulant therapy/Care Notes given; Deep Vein Thrombosis/Pulmonary Embolism Present on Admission: No; Contraindication to Pharm VTE Prophylaxis: None; Pharmacological prophylaxis given;}] Coding Level of Care Code Acute [facility] DC note Diagnoses Pulmonary embolism I26.99
--- NOTE | 2022-05-08 23:37 | USR_ITS ---
PROCEDURE INFORMATION: Exam: US Duplex Lower Extremity Veins, Bilateral Exam date and time: 05/08/2022 3:51 AM Age: 36 years old Clinical indication: Condition or disease; Other: Pulmonary embolus; Additional info: Pe TECHNIQUE: Imaging protocol: Real-time Duplex ultrasound of the bilateral extremities with 2-D lara scale, color Doppler flow and spectral waveform analysis with image documentation. Complete exam focused on the bilateral lower extremity veins. COMPARISON: No relevant prior studies available. FINDINGS: Evaluated veins include bilateral common femoral, proximal profunda femoral, proximal/mid/distal superficial femoral, popliteal, posterior tibial, peroneal, and proximal greater saphenous veins. Right leg: No visible clot in the included veins. The included veins appear normally compressible. Duplex Doppler evaluation demonstrates flow in the evaluated veins. Left leg: No visible clot in the included veins. The included veins appear normally compressible. Duplex Doppler evaluation demonstrates flow in the evaluated veins. US/[place] [id number] IMPRESSION: 1. No evidence of acute right lower extremity DVT. 2. No evidence of acute left lower extremity DVT.
[2022-05-09 19:47] LABS: Quest SARS-CoV-2 RNA NOT DETECTED (NOT DETECTED)
[2022-05-11 15:16] LABS: Anti-Double Strand DNA AB 2 IU/mL; Jo-1 Antibody <1.0 NEG AI (<1.0 NEG); SM/RNP Antibodies <1.0 NEG AI (<1.0 NEG); SS-B/LA IGG <1.0 NEG AI (<1.0 NEG); Scleroderma Ab(Scl-70) Ab <1.0 NEG AI (<1.0 NEG); Ss-A/Ro Igg <1.0 NEG AI (<1.0 NEG)
[2022-05-14 08:43] LABS: Factor VIII Activity Clotting 129 % normal (50-180)
[2022-05-14 12:22] LABS: Von Willebrand Factor AG 154 % (50-217)
[2022-05-16 20:53] LABS: Factor 5 Leiden Mutation NEGATIVE
== END 2022-05-08 16:00 | disposition home or self-care (01) ==
LOC: ER 20:01 → MEDSURG 20:23
PROVIDERS: Physician Assistant; Admitting Provider Student in an Organized Health Care Education/Training Program; Emergency Provider Emergency Medicine; Visit Provider Student in an Organized Health Care Education/Training Program
DX: I26.99 Other pulmonary embolism without acute cor pulmonale (principal); F41.1 Generalized anxiety disorder; F32.A Depression, unspecified
CPT/HCPCS: 36415; 70450; 71045; 71275; 80053; 81241; 83735; 84439; 84443; 84484; 84703; 85025; 85240; 85246; 85378; 86225; 86235; 87426; 87635; 93005; 93970; 96361; 96372; 96374; 96375; 96376; 99285; G0378; J1650; J2270; J2405; J3010; J3490; J7030; Q9967

== ENCOUNTER 2022-05-18 12:48 | Emergency (ER) | payer MEDICAID, SELFPAY ==
[2022-05-18 12:56] VITALS: BP 122/85; PULSE 127; RESP 18; TEMP 36.6; O2SAT 98; BMI 20.9
--- NOTE | 2022-05-18 13:29 | ECG_ITS ---
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 Measurements Intervals [place] Rate: 109 P: 68 [place]: 170 QRS: 77 QRSD: 90 T: 72 QT: 364 QTc: 492 Interpretive Statements SINUS TACHYCARDIA NONSPECIFIC T-WAVE ABNORMALITY Compared to ECG 05/08/2022 00:19:41 T-wave abnormality now present Electronically Signed On 05-18-2022 18:56:38 CDT by Froilan Flores M.D. [id number]
--- NOTE | 2022-05-18 13:29 | XRR_ITS ---
PROCEDURE INFORMATION: Exam: XR Chest Exam date and time: 05/18/2022 1:43 PM Age: 36 years old Clinical indication: Cough and dyspnea; Additional info: Dyspnea/cough TECHNIQUE: Imaging protocol: Radiologic exam of the chest. Views: 1 view. COMPARISON: CR (CHEST, ) 05/07/2022 6:26 PM FINDINGS: Lungs: Unremarkable. No consolidation. Pleural spaces: Unremarkable. No pleural effusion. No pneumothorax. Heart/Mediastinum: Unremarkable. No cardiomegaly. Bones/joints: Unremarkable. XR/XR chest 1V portable [id number] IMPRESSION: No acute findings.
--- NOTE | 2022-05-18 13:31 | ED_ITS ---
HPI - Dizziness General: Chief Complaint: Dizziness Stated Complaint: potassium - lab results Time Seen by Provider: 05/18/22 13:15 Source: patient Mode of arrival: ambulatory Limitations: no limitations History of Present Illness: HPI Narrative: 36-year-old female presents emergency room with malaise fatigue dizziness she had outpatient laboratory work done showed a potassium of 2.6 she is mildly tachycardic as well approximately 10 days ago she was admitted to the hospital with a small PE started on Eliquis and discharged the following day. PE was thought to be related to COVID, but she actually never tested positive. She is set to see Dr. Veloz for evaluation for hypercoagulable state. She comes in today because of increasing chest pain as well as worsening she takes a deep breath radiates up into the apex of her lungs. MD elicited complaint: dizziness and lightheadedness Onset (ago): day(s) Severity: mild Exacerbating factors: nothing Relieving factors: nothing Associated symptoms: Reports chest pain, malaise and short of breath; Denies chills, cough, diaphoresis, ear discharge, ear pressure, fevers/chills, headache(s), nausea, nasal congestion, palpitations, rash, syncope, tinnitus, vomiting or weakness Review of Systems Const: Reports: fever(s) and malaise; Denies: chills or diaphoresis ENMT: Denies: ear discharge, tinnitus or nasal congestion Card: Reports: chest pain; Denies: palpitations, edema, swelling of feet/ankles or syncope Resp: Denies: dyspnea, productive cough or non-productive cough GI: Denies: abdominal pain, nausea or vomiting : Denies: flank pain, difficulty voiding, dysuria, urinary frequency or urinary urgency Skin/Breast: Denies: rash or pruritus Neuro: Denies: headache(s) PFSH ED PFSH: Medical History Generalized anxiety disorder Generalized anxiety disorder Major depressive disorder, recurrent, in remission Major depressive disorder, recurrent, moderate Psychiatric care Surgical History H/O: hysterectomy Social History Smoking and tobacco status: never smoked Alcohol intake: never History of recent travel: No Physical Exam Const: COMMON NORMALS: no acute distress GENERAL APPEARANCE: cooperative and comfortable ORIENTATION/CONSCIOUSNESS: Yes awake, Yes oriented to person, Yes oriented to place and Yes oriented to time HENMT: COMMON NORMALS: normocephalic, atraumatic and hearing grossly normal bilaterally HEAD & SCALP: normocephalic and atraumatic Resp: COMMON NORMALS: normal respiratory effort, No retractions, No use of accessory muscles and clear to auscultation bilaterally AUSCULTATION: clear to auscultation bilaterally Cardio: COMMON NORMALS: regular rate, regular rhythm and No murmurs present (Cardio) RATE: regular rate RHYTHM: regular rhythm GI: COMMON NORMALS: Soft to palpation and No hepatosplenomegaly present AUSCULTATION: Yes normoactive bowel sounds PALPATION: Yes Soft to palpation, No Tenderness to palpation present (GI), No Guarding due to palpation present (GI) and Yes No hepatosplenomegaly present : BLADDER/KIDNEY EXAM: Yes CVA tenderness (Bilateral mild) Back/Pelvis: GENERAL BACK: Yes CVA tenderness (Bilateral mild) Extremity: COMMON NORMALS: normal to inspection, capillary refill normal, no clubbing, cyanosis or edema, no calf tenderness and no pedal edema Neuro: SENSORIUM/ORIENTATION: Yes oriented to person, Yes oriented to place and Yes oriented to time Skin: COMMON NORMALS: no rashes or lesions noted GENERAL SKIN EXAM: no rashes or lesions noted Course Vital Signs: Vital signs: Vital Signs Temperature 97.9 F 05/18/22 12:56 Pulse Rate 97 05/18/22 15:32 Respiratory Rate 20 H 05/18/22 15:32 Blood Pressure 103/68 05/18/22 15:32 Pulse Oximetry 97 05/18/22 15:32 Oxygen Delivery Me thod 05/18/22 13:39 MDM - Dizziness Medical Decision Making Patient has hypokalemia replaced here we will discharge home with potassium supplement. She not been taking triamterene hydrochlorothiazide. Her magnesium was normal. Continue Eliquis. Follow-up with Dr. Mckeon in the next 3 to 4 days to recheck a potassium. Medical Records I reviewed the patient's medical records. Lab Data I reviewed the patient's lab results. : 05/18/22 13:16 05/18/22 13:16 Radiology Impressions Chest X-Ray 05/18/22 13:29 IMPRESSION: No acute findings. Laboratory Results WBC 7.1 10^3/uL (4.0-10.0) 05/18/22 13:16 RBC 4.73 10^6/uL (4.1-5.3) 05/18/22 13:16 Hgb 14.0 g/dL (11.5-15.3) 05/18/22 13:16 Hct 40.0 % (37.0-47.0) 05/18/22 13:16 MCV 84.6 fl (81-99) 05/18/22 13:16 MCH 29.6 pg (28.0-34.0) 05/18/22 13:16 MCHC 35.0 g/dL (30.0-36.0) 05/18/22 13:16 RDW 12.7 % (12.1-15.1) 05/18/22 13:16 Plt Count 466 10^3/cmm (130-400) H 05/18/22 13:16 MPV 9.6 fL (7.4-10.4) 05/18/22 13:16 Neut % (Auto) 54.0 % 05/18/22 13:16 Lymph % (Auto) 36.6 % 05/18/22 13:16 [place] % (Auto) 7.1 % 05/18/22 13:16 Eos % (Auto) 1.3 % 05/18/22 13:16 Baso % (Auto) 0.9 % 05/18/22 13:16 Neut # (Auto) 3.81 10^3/uL (1.8-7.7) 05/18/22 13:16 Lymph # (Auto) 2.6 10^3/uL (0.8-4.8) 05/18/22 13:16 [place] # (Auto) 0.5 10^3/uL (0.2-0.9) 05/18/22 13:16 Eos # (Auto) 0.1 10^3/uL (0.0-0.8) 05/18/22 13:16 Baso # (Auto) 0.1 10^3/uL (0.0-0.1) 05/18/22 13:16 Nucleated RBC % (auto) 0 % 05/18/22 13:16 Nucleated RBCs # 0.0 /100WBC 05/18/22 13:16 Sodium 136 mmol/L (136-145) 05/18/22 13:16 Potassium 2.4 mmol/L (3.5-5.1) L* 05/18/22 13:16 Chloride 92 mmol/L (98-107) L 05/18/22 13:16 Carbon Dioxide 30 mmol/L (22-29) H 05/18/22 13:16 Anion Gap 16.4 (5-19) 05/18/22 13:16 BUN 7 mg/dL (6-20) 05/18/22 13:16 Creatinine 0.7 mg/dL (0.5-0.9) 05/18/22 13:16 GFR Calculation 93.6 mL/min (90-130) 05/18/22 13:16 Glucose 100 mg/dL (65-115) 05/18/22 13:16 Calculated Osmolality 280 mOsm/kg (285-295) L 05/18/22 13:16 Calcium 9.7 mg/dL (8.5-10.5) 05/18/22 13:16 Magnesium 1.8 mg/dL (1.7-2.3) 05/18/22 13:16 Total Bilirubin 0.6 mg/dL (0.15-1.2) 05/18/22 13:16 AST 54 U/L (0-32) H 05/18/22 13:16 ALT 54 U/L (0-33) H 05/18/22 13:16 Alkaline Phosphatase 66 IU/L (35-105) 05/18/22 13:16 Total Protein 7.2 g/dL (6.6-8.7) 05/18/22 13:16 Albumin 4.6 g/dL (3.5-5.2) 05/18/22 13:16 Globulin 2.6 g/dL (1.3-4.6) 05/18/22 13:16 Discharge Plan Discharge Patient Disposition: Home Clinical Impression: Hypokalemia, Pulmonary embolism Condition: Stable Prescriptions: New potassium chloride 20 mEq tablet extended release 20 meq PO TID Qty: 30 0RF No Action clonazepam 0.5 mg tablet 0.5 mg PO TID PRN (Reason: anxiety) Qty: 90 1RF Eliquis DVT-PE Treat 30D Start 5 mg (74 tabs) tablets,dose pack See Rx Instructions .ROUTE .COMPLEX Qty: 74 0RF Rx Instructions: orally per package directions Discharge Orders: Discharge ED (Routine); Ordered 05/18/22 Ordered By: Manjinder Stallworth Patient Instructions: Opioid Safety Activity Restrictions/Additional Instructions: Recheck of potassium was Dr. Mckeon and it was 3 to 4 days. Take 1 potassium this evening at 6 PM and another at bedtime. Coding Level of Care Code ED Concrete Buster Operator for Pravin Fwd 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
[2022-05-18 13:39] VITALS: BP 109/71; PULSE 109; RESP 17; O2SAT 98
--- NOTE | 2022-05-18 13:45 | PC.NURSE ---
PT PLACED ON CONTINUOUS NIBP, SPO2, AND CM
[2022-05-18] MEDS: sodium chloride 0.9% 1,000 ML 999 ML IV (13:48)
[2022-05-18 13:50] LABS: Basophils # 0.1 10^3/uL (0.0-0.1); Basophils % 0.9 %; Eosinophils # 0.1 10^3/uL (0.0-0.8); Eosinophils % 1.3 %; Lymphocytes # 2.6 10^3/uL (0.8-4.8); Lymphocytes % 36.6 %; Mean Corpuscular Hemoglobin 29.6 pg (28.0-34.0); Mean Corpuscular Volume 84.6 fl (81-99); Mean Platelet Volume 9.6 fL (7.4-10.4); Monocytes # 0.5 10^3/uL (0.2-0.9); Monocytes % 7.1 %; Neutrophils # 3.81 10^3/uL (1.8-7.7); Nucleated Red Blood Cells % 0 %; Platelet Count 466 10^3/cmm (130-400); Red Blood Count 4.73 10^6/uL (4.1-5.3); Red Cell Distribution Width 12.7 % (12.1-15.1); White Blood Count 7.1 10^3/uL (4.0-10.0)
[2022-05-18 14:08] LABS: Alanine Aminotransferase 54 U/L (0-33); Albumin Level 4.6 g/dL (3.5-5.2); Alkaline Phosphatase 66 IU/L (35-105); Anion Gap 16.4 (5-19); Aspartate Amino Transferase 54 U/L (0-32); Blood Urea Nitrogen 7 mg/dL (6-20); Calcium 9.7 mg/dL (8.5-10.5); Carbon Dioxide 30 mmol/L (22-29); Chloride 92 mmol/L (98-107); Globulin 2.6 g/dL (1.3-4.6); Glomerular Filtration Rate 93.6 mL/min (90-130); Glucose 100 mg/dL (65-115); Osmolality Calculated 280 mOsm/kg (285-295); Sodium 136 mmol/L (136-145); Total Bilirubin 0.6 mg/dL (0.15-1.2); Total Protein 7.2 g/dL (6.6-8.7)
[2022-05-18 14:13] LABS: Potassium 2.4 mmol/L (3.5-5.1)
[2022-05-18] MEDS: potassium chloride oral liq 20 mEq/15 mL UDC 60 MEQ PO (14:24)
[2022-05-18 15:12] VITALS: BP 103/68; PULSE 97; RESP 27; O2SAT 100
[2022-05-18] MEDS: ondansetron 2 mg/ML SDV 2 mL 4 MG IVP (15:24)
[2022-05-18 15:26] LABS: Magnesium 1.8 mg/dL (1.7-2.3)
[2022-05-18 15:32] VITALS: BP 103/68; PULSE 97; RESP 20; O2SAT 97
== END 2022-05-18 15:35 | disposition home or self-care (01) ==
PROVIDERS: Emergency Provider Family Medicine
DX: I26.99 Other pulmonary embolism without acute cor pulmonale (principal); E87.6 Hypokalemia; Z79.01 Long term (current) use of anticoagulants
CPT/HCPCS: 71045; 80053; 83735; 85025; 93005; 96361; 96374; 99285; J2405; J7030

== ENCOUNTER 2022-06-01 08:00 | Oncology outpatient (recurring) (ONCR) | payer MEDICAID, SELFPAY ==
[2022-05-25 09:26] LABS: Basophils # 0.1 10^3/uL (0.0-0.1); Basophils % 1.4 %; Eosinophils # 0.1 10^3/uL (0.0-0.8); Eosinophils % 2.4 %; Hematocrit 40.3 % (37.0-47.0); Hemoglobin 13.8 g/dL (11.5-15.3); Lymphocytes # 2.1 10^3/uL (0.8-4.8); Lymphocytes % 35.6 %; Mean Corpuscular HGB Conc 34.2 g/dL (30.0-36.0); Mean Corpuscular Hemoglobin 29.7 pg (28.0-34.0); Mean Corpuscular Volume 86.7 fl (81-99); Mean Platelet Volume 9.1 fL (7.4-10.4); Monocytes # 0.5 10^3/uL (0.2-0.9); Monocytes % 8.6 %; Neutrophils # 3.01 10^3/uL (1.8-7.7); Neutrophils % 51.8 %; Nucleated Red Blood Cells % 0 %; Platelet Count 332 10^3/cmm (130-400); Red Blood Count 4.65 10^6/uL (4.1-5.3); Red Cell Distribution Width 12.6 % (12.1-15.1); White Blood Count 5.8 10^3/uL (4.0-10.0)
[2022-05-25 09:41] LABS: Erythrocyte Sedimentation Rate 4 mm/hr (0-15)
[2022-05-25 09:49] LABS: Alanine Aminotransferase 31 U/L (0-33); Albumin Level 4.5 g/dL (3.5-5.2); Alkaline Phosphatase 70 U/L (35-105); Anion Gap 20.2 (5-19); Aspartate Amino Transferase 35 U/L (0-32); Blood Urea Nitrogen 7 mg/dL (6-20); Calcium 9.3 mg/dL (8.5-10.5); Carbon Dioxide 25 mmol/L (22-29); Chloride 96 mmol/L (98-107); Globulin 2.7 g/dL (1.3-4.6); Glomerular Filtration Rate 111.9 mL/min (90-130); Glucose 84 mg/dL (65-115); Iron 35 ug/dL (37-145); Osmolality Calculated 283 mOsm/kg (285-295); Percent Saturation 8.9 % (20-50); Potassium 3.2 mmol/L (3.5-5.1); Sodium 138 mmol/L (136-145); Total Bilirubin 0.5 mg/dL (0.15-1.2); Total Iron Binding Capacity 393 mcg/dl; Total Protein 7.2 g/dL (6.6-8.7); Unsaturated Iron Binding 358 ug/dL (112-347)
[2022-05-25 10:05] LABS: Vitamin B12 733 pg/mL (232-1245)
[2022-05-31 13:15] LABS: Basophils # 0.1 10^3/uL (0.0-0.1); Basophils % 0.9 %; Eosinophils # 0.2 10^3/uL (0.0-0.8); Eosinophils % 2.7 %; Hematocrit 42.9 % (37.0-47.0); Hemoglobin 14.7 g/dL (11.5-15.3); Lymphocytes # 1.8 10^3/uL (0.8-4.8); Lymphocytes % 26.5 %; Mean Corpuscular HGB Conc 34.3 g/dL (30.0-36.0); Mean Corpuscular Hemoglobin 29.2 pg (28.0-34.0); Mean Corpuscular Volume 85.1 fl (81-99); Mean Platelet Volume 9.5 fL (7.4-10.4); Monocytes # 0.5 10^3/uL (0.2-0.9); Monocytes % 8.1 %; Neutrophils # 4.12 10^3/uL (1.8-7.7); Neutrophils % 61.5 %; Nucleated Red Blood Cells % 0 %; Platelet Count 317 10^3/cmm (130-400); Red Blood Count 5.04 10^6/uL (4.1-5.3); Red Cell Distribution Width 12.6 % (12.1-15.1); White Blood Count 6.7 10^3/uL (4.0-10.0)
[2022-05-31 13:29] LABS: Erythrocyte Sedimentation Rate 7 mm/hr (0-15)
[2022-05-31 13:34] LABS: Alanine Aminotransferase 29 U/L (0-33); Albumin Level 4.6 g/dL (3.5-5.2); Alkaline Phosphatase 71 U/L (35-105); Anion Gap 14.7 (5-19); Aspartate Amino Transferase 32 U/L (0-32); Blood Urea Nitrogen 5 mg/dL (6-20); Calcium 9.3 mg/dL (8.5-10.5); Carbon Dioxide 30 mmol/L (22-29); Chloride 93 mmol/L (98-107); Globulin 2.9 g/dL (1.3-4.6); Glomerular Filtration Rate 111.9 mL/min (90-130); Glucose 94 mg/dL (65-115); Lactate Dehydrogenase 226 U/L (135-214); Osmolality Calculated 277 mOsm/kg (285-295); Potassium 2.7 mmol/L (3.5-5.1); Sodium 135 mmol/L (136-145); Total Bilirubin 0.7 mg/dL (0.15-1.2); Total Protein 7.5 g/dL (6.6-8.7)
[2022-05-31 13:37] LABS: LAB Peripheral Smear Sent for Review
[2022-05-31 13:45] LABS: Cortisol Random 12.78 ug/dL (2.47-19.5)
[2022-06-01 08:30] VITALS: BP 114/79; PULSE 102; RESP 18; TEMP 36; O2SAT 98
[2022-06-01] MEDS: sodium chloride 0.9% 250 ML 75 ML IV (08:50)
[2022-06-01] MEDS: potassium chloride premix 100 ML 25 MEQ IV (08:50)
[2022-06-01] MEDS: ondansetron 2 mg/ML SDV 2 mL 8 MG IVP (11:37)
[2022-06-01 12:57] LABS: EBV IGG TEST >750.00 U/mL; EBV IGM TEST <36.00 U/mL
[2022-06-01 13:12] LABS: Cytomegalovirus Antibody (IGM) <30.00 AU/mL
== END 2022-06-09 23:59 | disposition home or self-care (01) ==
PROVIDERS: Visit Provider Internal Medicine Medical Oncology
DX: R59.1 Generalized enlarged lymph nodes (principal); E87.6 Hypokalemia
CPT/HCPCS: 36415; 80053; 82533; 82607; 83540; 83550; 83615; 85025; 85651; 86140; 86664; 86665; 96365; 96366; 96375; 99204; 99205; 99214; J2405; J3480; J7050

== ENCOUNTER 2022-06-04 06:33 | Outpatient (CLI) | payer MEDICAID, SELFPAY ==
[2022-06-07 09:17] LABS: Anion Gap 16.7 (5-19); Blood Urea Nitrogen 6 mg/dL (6-20); Calcium 9.6 mg/dL (8.5-10.5); Carbon Dioxide 30 mmol/L (22-29); Chloride 96 mmol/L (98-107); Glomerular Filtration Rate 111.9 mL/min (90-130); Glucose 105 mg/dL (65-115); Osmolality Calculated 288 mOsm/kg (285-295); Sodium 140 mmol/L (136-145)
[2022-06-07 09:22] LABS: Potassium 2.7 mmol/L (3.5-5.1)
[2022-06-10 15:08] LABS: Metanephrine Total Free 165 pg/mL (<=205)
== END 2022-06-04 06:34 | disposition home or self-care (01) ==
LOC: LAB 06:35
PROVIDERS: Nurse Practitioner; Visit Provider Internal Medicine Medical Oncology
DX: E87.6 Hypokalemia (principal)
CPT/HCPCS: 36415; 82542; 83835

== ENCOUNTER 2022-06-07 08:01 | Outpatient (CLI) | payer MEDICAID, SELFPAY ==
[2022-06-14 11:53] LABS: Free Cortisol Urine 2.9 mcg/24 h (4.0-50.0); Total Urine 2100 mL; Urine Creatinine 0.68 g/24 h (0.50-2.15)
== END 2022-06-07 08:02 | disposition home or self-care (01) ==
LOC: LAB 08:04
PROVIDERS: Visit Provider Internal Medicine Medical Oncology
DX: E87.6 Hypokalemia (principal); R00.0 Tachycardia, unspecified
CPT/HCPCS: 36415; 80048; 82530

== ENCOUNTER → 2022-06-08 13:49 | Outpatient (BNVA) | payer MEDICAID, SELFPAY | PROVIDERS: Referring Provider Internal Medicine Medical Oncology; Visit Provider Otolaryngology | DX: R22.1 Localized swelling, mass and lump, neck (principal); F41.1 Generalized anxiety disorder; E87.6 Hypokalemia | CPT/HCPCS: 99204 ==

== ENCOUNTER 2022-06-10 06:35 | Day surgery (SDC) | payer MEDICAID, SELFPAY ==
[2022-06-10 06:49] VITALS: BP 105/73; PULSE 100; RESP 18; TEMP 37.1; O2SAT 99
--- NOTE | 2022-06-10 07:06 | ANES.PREANE2 ---
Pre-Anesthetic Assessment Height/Weight: Height 1.52 m Weight 49.895 kg Preop Diagnosis: Right posterior neck mass Operation Date: 06/10/22 08:05 Proposed Procedures p Excision of right sided neck mass 48104,R22.1(Right) - Clement Aguiar MD Familial anesthetic complications: None Was Beta Patricio taken within 24 hours: N/A Was Clonidine taken within 24 hours: N/A Social No alcohol and No tobacco Exam alert, oriented x 3, clear to auscultation bilaterally and regular rate & rhythm Airway Submandibular: within normal limits Cervical ROM: within normal limits Mallampati: Class I Dentition: full History/ROS No significant complaints Pulmonary Shortness of Breath Suspected distal branch PE on apixaban w/ lymphadenopathy CXR 05/18/22 XR/XR chest 1V portable [id number] IMPRESSION: No acute findings. ? CTA 05/08/22 CCESSION #: [id number] CT/CT angio chest PE protcl [id number] IMPRESSION: Small distal branches of the pulmonary arteries in the lingula are poorly opacified concerning for small distal pulmonary embolus. No central or saddle embolus. No right heart strain. ? CV/HEM Arrythmia (Hx of SVT w/ syncope ) EKG 05/18/22 ?? Interpretive Statements SINUS TACHYCARDIA NONSPECIFIC T-WAVE ABNORMALITY Compared to ECG 05/08/2022 00:19:41 T-wave abnormality now present Electronically Signed On 05-18-2022 18:56:38 CDT by Froilan Flores M.D. [email or web address] Duplex 05/08/22 US/[place] [id number] IMPRESSION: 1. No evidence of acute right lower extremity DVT. 2. No evidence of acute left lower extremity DVT. ? TTE 06/2021 CONCLUSIONS ?Normal left ventricular size and systolic function, EF 64 %. ?No regional wall motion abnormalities. ?Normal cardiac chamber sizes. ?Trace of mitral and tricuspid regurgitation. ?No intracardiac masses. ?No intracardiac shunts by color flow Doppler examination ?There is no pericardial effusion. ?No previous study is available for comparison. KATE None reported Hx of chronic hypokalemia 06/07/22 K 2.7 Hepatic None reported GI None reported Metabolic None reported Musc/skel None reported Neck mass w/ lymphadenopathy Neuropsych Anxiety and Depression CT Head 05/08/22 CT/CT head wo con* [id number] IMPRESSION: No acute intracranial abnormality. ? Anesthetic Plan ASA status: 3 Anesthesia: Anesthesia Evaluation, General and MAC Other: We discussed risk and benefits of general anesthesia including PONV, sore throat (sometimes severe), corneal abrasion, positioning and peripheral nerve injuries, life threatening allergic reaction, post operative ICU admission requiring prolonged intubation, aspiration, stroke, heart attack, , and rare incidences of recall. Potassium pending. Pre op MgSO4 ordered. After discussion with surgeon plan MAC. I discussed with the patient risks, goals, and benefits of MAC and general anesthesia. We discussed spectrum of MAC anesthesia including conversion to general as well as possibility of recall of intraoperative stimuli including discomfort/pain. Patient agrees to proceed with MAC. Risk of > 500 ml blood loss (7ml/kg in children): No Medications/Allergies Home Medications Medication Instructions Recorded Confirmed Last Taken Type clonazepam 0.5 mg tablet 0.5 mg PO TID PRN anxiety #90 tabs 04/16/22 06/10/22 06/10/22 Rx apixaban 5 mg tablet (Eliquis) 5 mg PO BID #60 tabs 05/27/22 06/09/22 06/09/22 Rx potassium chloride 20 mEq 40 meq PO TID #180 tabs 06/08/22 06/10/22 06/10/22 Rx tablet,extended release Allergies Allergy/AdvReac Type Severity Reaction Status Date / Time No Known Allergies Allergy Verified 06/08/22 13:56 [facility] Anesthesia Medical History Chronic migraine Generalized anxiety disorder History of major depression History of supraventricular tachycardia History of syncope She has history of syncope in association with tachycardia Psychiatric care Surgical History History of cholecystectomy (11/2020) History of hysterectomy (08/2018) Without oophorectomy History of laparoscopy (2003) to diagnose endometriosis Family History Mother Chronic kidney disease (CKD) Other CAD (coronary artery disease) Cancer Clotting disorder Diabetes Hyperlipidemia Hypertension Lung disease Denies family history of Dementia Psychiatric illness Suicide Anesthesia complication Bleeding disorder Stroke Social History Smoking and tobacco status: never smoked Alcohol intake: never History of recent travel: No Data Anesthesia : 06/10/22 06:58 Cardiac Studies: Echocardiogram 07/08/21 Cardiac Event Monitor 05/29/21
[2022-06-10] MEDS: sodium chloride 0.9% 1,000 ML 30 ML IV (07:10)
--- NOTE | 2022-06-10 07:43 | W.PM.OPSUD ---
Surgery/Procedure H&P Update DATE OF PROCEDURE: June 10, 2022 DATE H&P PERFORMED: 06/08/22 H&P UPDATE INFORMATION: I have reviewed H&P completed within last 30 days, I have examined patient prior to procedure and No changes to prior documentation CHANGES TO PREVIOUS DOCUMENTATION: No changes. PREOP DIAGNOSIS: Right posterior neck mass PRIMARY INDICATION FOR PROCEDURE: Persistent right posterior neck painful mass of uncertain etiology. PLANNED PROCEDURE: Operation Date: 06/10/22 08:05 Proposed Procedures p Excision of right sided neck mass 35307,R22.1(Right) - Clement Aguiar MD
[2022-06-10 07:46] LABS: Blood Urea Nitrogen 5 mg/dL (6-20); Calcium 9.1 mg/dL (8.5-10.5); Carbon Dioxide 33 mmol/L (22-29); Chloride 94 mmol/L (98-107); Creatinine Clr Calc Pharmacy 94.8442; Glomerular Filtration Rate 111.9 mL/min (90-130); Glucose 96 mg/dL (65-115); Osmolality Calculated 279 mOsm/kg (285-295); Sodium 136 mmol/L (136-145)
[2022-06-10] MEDS: magnesium sulfate premix 2 GM/50 ML PIGGYBACK IV (07:58)
[2022-06-10] MEDS: ceFAZolin 2,000 MG in sodium chloride 0.9% (plus) 50 ML 100 MG IV (08:26)
[2022-06-10] MEDS: neomycin-poly-bacitracin oint 28 gm 1 APPLIC TOPICAL (08:48)
--- NOTE | 2022-06-10 08:56 | PM.OP ---
Operative Report Date of procedure: June 10, 2022 Pre-op diagnosis: Preop Diagnosis Right posterior neck mass Post-op diagnosis: Same Post-op findings: Patient found to have abscessed lymph node Procedure done: Incision and drainage of right posterior neck lymph node abscess Implants: Small section of Pat drain Specimens removed/disposition: Segments of abscessed lymph node Pathology: Both aerobic and anaerobic cultures taken. Small segments of abscess lymph node. Surgeon: Clement Aguiar MD Anesthesia: MAC and Local Estimated blood loss: 5 mL Complications: No complications encountered Findings: 36-year-old a painful right posterior neck swelling that seems to increase and decrease in size sometimes on a daily basis. It was unclear as to whether this was an infected cyst or possibly infected lymph node with abscess. Dr. Veloz wanted this to be biopsied. Patient being brought to the operating room to undergo excisional biopsy of this mass for diagnostic purposes. Brief History: 36-year-old female patient with right posterior neck mass which is increased and decreased in size but remained painful. Sometimes exquisitely painful. She was not noted to have any fluctuance on examination in that area. Being brought to the operating room at this time to undergo excisional biopsy of this mass or drainage if abscess is found. The procedure its risks and complications of been explained. These risks include bleeding infection numbness scarring swelling bruising recurrence and need for additional treatment as well as anesthetic risks. With these things understood informed consent was granted. Procedure: Description of procedure: Patient received IV sedation and MAC anesthesia with LMA support for airway. The patient was placed in a left lateral down position. She was supported by beanbag. Her right shoulder was taped tangentially to the left side of the table. This provided access to her right posterior neck. The patient was prepped initially cutting the hair with a shaver and then infiltrating the planned incision with 3.4 mL of 2% Xylocaine with 1-100,000 epinephrine. Timeout was accomplished identifying the patient date of plan procedure allergies fire risk and medications given. With all in agreement the procedure continued. The patient was then prepped and draped in usual fashion. A marking pen was used to outline a vertical incision corresponding with the direction of the lesser occipital nerve as that was the area of the mass. The incision was then created with a 15 blade carrying it down through to the subcutaneous tissue. A dissector was then used to create a small defect over the palpable mass. Yellow pus was expressed and cultured for both aerobic and anaerobic culture and sensitivity. Further dissection was carried out and it was noted that the lesser occipital nerve literally was passing adherent to the necrotic abscessed lymph node. This careful dissection was carried out to remove some of the tissue off the nerve. The nerve was preserved. The abscess cavity only measured 2 or 3 cm? in volume. The area was irrigated. With no active bleeding and with no other mass present a small Pat drain was cut to a very small sliver and a piece of it was placed to the depths of the defect. Then the incision was closed with interrupted 4-0 chromic deep and a running 5-0 nylon to close the skin. The drain was sutured with a separate simple 5-0 nylon suture inferiorly. The area was then cleansed. Pressure was applied for several minutes. The drapes were removed while protecting with a sterile lap pad. Then the area was coated with Neosporin ointment followed by a large sterile Band-Aid. The patient tolerated the procedure well and was returned to anesthesia for extubation removing the LMA. Patient was then taken to recovery room in stable condition. Estimated blood loss was 5 mL or less.
[2022-06-10 09:01] VITALS: BP 91/59; PULSE 73; RESP 14; TEMP 36.5; O2SAT 100
[2022-06-10 09:05] VITALS: BP 95/63; PULSE 71; RESP 12; O2SAT 100
[2022-06-10 09:09] VITALS: BP 84/65; PULSE 76; RESP 14; TEMP 36.3; O2SAT 100
[2022-06-10 09:26] VITALS: BP 89/58; PULSE 79; RESP 18; O2SAT 100
[2022-06-10] MEDS: acetaminophen-codeine 300-30mg Tablet 1 TAB PO (09:48)
[2022-06-10 10:05] VITALS: BP 100/70; PULSE 64; RESP 18; O2SAT 99
--- NOTE | 2022-06-10 14:28 | ANE.PACU2 ---
Inpatient post-anesthesia follow up: Airway intact: Yes Vital signs: Temperature 97.4 F Pulse Rate 64 Respiratory Rate 18 Blood Pressure 100/70 Pulse Oximetry 99 Oxygen Delivery Me thod Room Air Oxygen Flow Rate Fraction of Inspir ed Oxygen Hydration adequate: Yes Nausea and vomiting: No Pain level: 4 Mental status: Baseline
[2022-06-15 13:39] LABS: Leukemia Profile (BBPL) See Report; Lymphoma Profile (BBPL) See Report
== END 2022-06-10 10:40 | disposition home or self-care (01) ==
PROVIDERS: Anesthesiology; Visit Provider Otolaryngology
PROC: (CPT 38300; principal; 2022-06-10 07:55)
DX: L04.0 Acute lymphadenitis of face, head and neck (principal); E87.6 Hypokalemia; Z79.01 Long term (current) use of anticoagulants
CPT/HCPCS: 38300; 36415; 80048; 87070; 87075; 87077; 87186; 87205; 88184; 88185; 88309; J1100; J2250; J2405; J2704; J3010; J3475; J7030

== ENCOUNTER 2022-06-14 17:15 | Emergency (ER) | payer MEDICAID, SELFPAY ==
[2022-06-14 17:27] VITALS: BP 120/71; PULSE 110; RESP 16; TEMP 36.6; O2SAT 99; BMI 31.2
--- NOTE | 2022-06-14 17:27 | W.ED.FALL ---
Documented by User: Manjinder Stallworth DO 06/29/22 07:38 HPI - Fall General: Chief Complaint: Syncope Stated Complaint: FALL/ HIT HEAD Time Seen by Provider: 06/14/22 17:16 Source: patient Mode of arrival: EMS Limitations: no limitations History of Present Illness: 36-year-old female who presents emergency room via EMS she fell and hit her head. She is tells me she thinks her potassium is low again she has had difficulty with hypokalemia in the past.SHe recently had a lymph node biopsy right posterior cervical chain. She still has drain in place with some mild discomfort but no significant pain from them. Onset (ago): minute(s) Fall from: standing Place fall occurred: home Loss of consciousness: None Prolonged down time: no Symptoms prior to fall: lightheadedness and dizziness Quality: aching Associated symptoms-after fall: Denies abdominal pain or chest pain Review of Systems Const: Denies: fever(s), chills, body aches, change in appetite, fatigue or malaise ENMT: Denies: throat pain, ear or mastoid pain, nasal discharge or nasal congestion Card: Denies: chest pain, edema, dyspnea on exertion or orthopnea Resp: Denies: dyspnea, productive cough or non-productive cough GI: Denies: abdominal pain, nausea, vomiting, hematemesis, coffee ground emesis, diarrhea, constipation, bloating, hematochezia or melena : Denies: flank pain, difficulty voiding, dysuria, urinary frequency or urinary urgency Skin/Breast: Denies: rash or pruritus PFSH ED PFSH: Medical History Chronic migraine Generalized anxiety disorder History of major depression History of supraventricular tachycardia History of syncope She has history of syncope in association with tachycardia Psychiatric care Surgical History History of cholecystectomy (11/2020) History of hysterectomy (08/2018) Without oophorectomy History of laparoscopy (2003) to diagnose endometriosis Family History Mother Chronic kidney disease (CKD) Other CAD (coronary artery disease) Cancer Clotting disorder Diabetes Hyperlipidemia Hypertension Lung disease Denies family history of Dementia Psychiatric illness Suicide Anesthesia complication Bleeding disorder Stroke Social History Smoking and tobacco status: never smoked Alcohol intake: never History of recent travel: No Physical Exam Const: GENERAL APPEARANCE: cooperative and comfortable ORIENTATION/CONSCIOUSNESS: Yes awake, Yes oriented to person, Yes oriented to place and Yes oriented to time HENMT: COMMON NORMALS: normocephalic, atraumatic and hearing grossly normal bilaterally HEAD & SCALP: normocephalic and atraumatic Resp: COMMON NORMALS: normal respiratory effort, No retractions, No use of accessory muscles and clear to auscultation bilaterally AUSCULTATION: clear to auscultation bilaterally Cardio: COMMON NORMALS: regular rate, regular rhythm and No murmurs present (Cardio) RATE: regular rate RHYTHM: regular rhythm GI: COMMON NORMALS: Soft to palpation and No hepatosplenomegaly present AUSCULTATION: Yes normoactive bowel sounds PALPATION: Yes Soft to palpation, No Tenderness to palpation present (GI), No Guarding due to palpation present (GI) and Yes No hepatosplenomegaly present Extremity: COMMON NORMALS: normal to inspection, capillary refill normal, no clubbing, cyanosis or edema, no calf tenderness and no pedal edema Neuro: SENSORIUM/ORIENTATION: Yes oriented to person, Yes oriented to place and Yes oriented to time Skin: COMMON NORMALS: no rashes or lesions noted GENERAL SKIN EXAM: no rashes or lesions noted Course Vital Signs: Vital signs: Vital Signs Temperature 97.9 F 06/14/22 17:27 Pulse Rate 98 06/14/22 20:45 Respiratory Rate 20 H 06/14/22 20:45 Blood Pressure 110/63 06/14/22 20:45 Pulse Oximetry 99 06/14/22 17:27 Oxygen Delivery Me thod 06/14/22 17:27 MDM - Fall Medical Decision Making Care signed out to Dr. Lerner at change of shift. See final notes for diagnosis and disposition. Patient presents here with near syncopal event a fall with some generalized weakness her potassium level here is normal head CT is normal she is stable for discharge she is to follow-up with PCP along with Magdiel and return if worsening she understands agrees to plan. Medical Records I reviewed the patient's medical records. Lab Data I reviewed the patient's lab results. : 06/14/22 18:15 06/14/22 18:[address] 06/14/22 17:47 IMPRESSION: No acute intracranial pathology identified by CT. Laboratory Results WBC 9.1 10^3/uL (4.0-10.0) 06/14/22 18:15 RBC 5.03 10^6/uL (4.1-5.3) 06/14/22 18:15 Hgb 14.9 g/dL (11.5-15.3) 06/14/22 18:15 Hct 44.1 % (37.0-47.0) 06/14/22 18:15 MCV 87.7 fl (81-99) 06/14/22 18:15 MCH 29.6 pg (28.0-34.0) 06/14/22 18:15 MCHC 33.8 g/dL (30.0-36.0) 06/14/22 18:15 RDW 12.3 % (12.1-15.1) 06/14/22 18:15 Plt Count 542 10^3/cmm (130-400) H 06/14/22 18:15 MPV 9.5 fL (7.4-10.4) 06/14/22 18:15 Neut % (Auto) 41.8 % 06/14/22 18:15 Lymph % (Auto) 46.8 % 06/14/22 18:15 [place] % (Auto) 5.9 % 06/14/22 18:15 Eos % (Auto) 4.1 % 06/14/22 18:15 Baso % (Auto) 1.2 % 06/14/22 18:15 Neut # (Auto) 3.81 10^3/uL (1.8-7.7) 06/14/22 18:15 Lymph # (Auto) 4.3 10^3/uL (0.8-4.8) 06/14/22 18:15 [place] # (Auto) 0.5 10^3/uL (0.2-0.9) 06/14/22 18:15 Eos # (Auto) 0.4 10^3/uL (0.0-0.8) 06/14/22 18:15 Baso # (Auto) 0.1 10^3/uL (0.0-0.1) 06/14/22 18:15 Nucleated RBC % (auto) 0 % 06/14/22 18:15 Nucleated RBCs # 0.0 /100WBC 06/14/22 18:15 Sodium 137 mmol/L (136-145) 06/14/22 18:15 Potassium 4.5 mmol/L (3.5-5.1) 06/14/22 18:15 Chloride 96 mmol/L (98-107) L 06/14/22 18:15 Carbon Dioxide 29 mmol/L (22-29) 06/14/22 18:15 Anion Gap 16.5 (5-19) 06/14/22 18:15 BUN 9 mg/dL (6-20) 06/14/22 18:15 Creatinine 0.7 mg/dL (0.5-0.9) 06/14/22 18:15 GFR Calculation 93.6 mL/min (90-130) 06/14/22 18:15 Glucose 83 mg/dL (65-115) 06/14/22 18:15 Calculated Osmolality 282 mOsm/kg (285-295) L 06/14/22 18:15 Calcium 9.6 mg/dL (8.5-10.5) 06/14/22 18:15 Discharge Plan Discharge Patient Disposition: Home Clinical Impression: Weakness, Near syncope Condition: Stable Prescriptions: No Action clonazepam 0.5 mg tablet 0.5 mg PO TID PRN (Reason: anxiety) Qty: 90 1RF levofloxacin 500 mg tablet 500 mg PO DAILY 7 Days Qty: 7 0RF levofloxacin 500 mg tablet 500 mg PO DAILY 8 Days Qty: 8 0RF Rx Instructions: Add to previous 7-day course to make a total of 15 days. Eliquis 5 mg tablet 5 mg PO BID Qty: 60 3RF ondansetron HCl 4 mg tablet 4 mg PO Q6H PRN (Reason: nausea and vomiting) Qty: 60 0RF hydrocodone-acetaminophen 5-325 mg tablet 1 - 2 tab PO Q4H PRN (Reason: Pain) Narcan 4 mg/actuation spray,non-aerosol See Rx Instructions .ROUTE .COMPLEX Rx Instructions: 1 spray intranasally as directed potassium chloride 20 mEq tablet extended release 40 meq PO 5XD potassium chloride 10 mEq capsule, extended release 10 meq PO BID 10 Days Qty: 20 0RF Discharge Orders: Discharge ED (Routine); Ordered 06/14/22 Ordered By: Robert Lerner Discharge Diet: Advance as tolerated Discharge Activity: Resume usual activity Patient Instructions: Weakness (ED) Coding Level of Care Code ED Web Applications Architect for Chg Fwd Exam Detailed Documented by User: Robert Lerner MD 06/14/22 19:22 HPI - Fall General: Chief Complaint: Syncope Stated Complaint: FALL/ HIT HEAD Time Seen by Provider: 06/14/22 17:16 PFSH ED PFSH: Medical History Chronic migraine Generalized anxiety disorder History of major depression History of supraventricular tachycardia History of syncope She has history of syncope in association with tachycardia Psychiatric care Surgical History History of cholecystectomy (11/2020) History of hysterectomy (08/2018) Without oophorectomy History of laparoscopy (2003) to diagnose endometriosis Family History Mother Chronic kidney disease (CKD) Other CAD (coronary artery disease) Cancer Clotting disorder Diabetes Hyperlipidemia Hypertension Lung disease Denies family history of Dementia Psychiatric illness Suicide Anesthesia complication Bleeding disorder Stroke Social History Smoking and tobacco status: never smoked Alcohol intake: never History of recent travel: No Course Vital Signs: Vital signs: Vital Signs Temperature 97.9 F 06/14/22 17:27 Pulse Rate 98 06/14/22 20:45 Respiratory Rate 20 H 06/14/22 20:45 Blood Pressure 110/63 06/14/22 20:45 Pulse Oximetry 99 06/14/22 17:27 Oxygen Delivery Me thod 06/14/22 17:27 MDM - Fall Medical Decision Making Patient presents here with near syncopal event a fall with some generalized weakness her potassium level here is normal head CT is normal she is stable for discharge she is to follow-up with PCP along with Magdiel and return if worsening she understands agrees to plan. Lab Data : 06/14/22 18:15 06/14/22 18:[address] 06/14/22 17:47 IMPRESSION: No acute intracranial pathology identified by CT. Laboratory Results WBC 9.1 10^3/uL (4.0-10.0) 06/14/22 18:15 RBC 5.03 10^6/uL (4.1-5.3) 06/14/22 18:15 Hgb 14.9 g/dL (11.5-15.3) 06/14/22 18:15 Hct 44.1 % (37.0-47.0) 06/14/22 18:15 MCV 87.7 fl (81-99) 06/14/22 18:15 MCH 29.6 pg (28.0-34.0) 06/14/22 18:15 MCHC 33.8 g/dL (30.0-36.0) 06/14/22 18:15 RDW 12.3 % (12.1-15.1) 06/14/22 18:15 Plt Count 542 10^3/cmm (130-400) H 06/14/22 18:15 MPV 9.5 fL (7.4-10.4) 06/14/22 18:15 Neut % (Auto) 41.8 % 06/14/22 18:15 Lymph % (Auto) 46.8 % 06/14/22 18:15 [place] % (Auto) 5.9 % 06/14/22 18:15 Eos % (Auto) 4.1 % 06/14/22 18:15 Baso % (Auto) 1.2 % 06/14/22 18:15 Neut # (Auto) 3.81 10^3/uL (1.8-7.7) 06/14/22 18:15 Lymph # (Auto) 4.3 10^3/uL (0.8-4.8) 06/14/22 18:15 [place] # (Auto) 0.5 10^3/uL (0.2-0.9) 06/14/22 18:15 Eos # (Auto) 0.4 10^3/uL (0.0-0.8) 06/14/22 18:15 Baso # (Auto) 0.1 10^3/uL (0.0-0.1) 06/14/22 18:15 Nucleated RBC % (auto) 0 % 06/14/22 18:15 Nucleated RBCs # 0.0 /100WBC 06/14/22 18:15 Sodium 137 mmol/L (136-145) 06/14/22 18:15 Potassium 4.5 mmol/L (3.5-5.1) 06/14/22 18:15 Chloride 96 mmol/L (98-107) L 06/14/22 18:15 Carbon Dioxide 29 mmol/L (22-29) 06/14/22 18:15 Anion Gap 16.5 (5-19) 06/14/22 18:15 BUN 9 mg/dL (6-20) 06/14/22 18:15 Creatinine 0.7 mg/dL (0.5-0.9) 06/14/22 18:15 GFR Calculation 93.6 mL/min (90-130) 06/14/22 18:15 Glucose 83 mg/dL (65-115) 06/14/22 18:15 Calculated Osmolality 282 mOsm/kg (285-295) L 06/14/22 18:15 Calcium 9.6 mg/dL (8.5-10.5) 06/14/22 18:15 Discharge Plan Discharge Patient Disposition: Home Clinical Impression: Weakness, Near syncope Condition: Stable Prescriptions: No Action clonazepam 0.5 mg tablet 0.5 mg PO TID PRN (Reason: anxiety) Qty: 90 1RF levofloxacin 500 mg tablet 500 mg PO DAILY 7 Days Qty: 7 0RF levofloxacin 500 mg tablet 500 mg PO DAILY 8 Days Qty: 8 0RF Rx Instructions: Add to previous 7-day course to make a total of 15 days. Eliquis 5 mg tablet 5 mg PO BID Qty: 60 3RF ondansetron HCl 4 mg tablet 4 mg PO Q6H PRN (Reason: nausea and vomiting) Qty: 60 0RF hydrocodone-acetaminophen 5-325 mg tablet 1 - 2 tab PO Q4H PRN (Reason: Pain) Narcan 4 mg/actuation spray,non-aerosol See Rx Instructions .ROUTE .COMPLEX Rx Instructions: 1 spray intranasally as directed potassium chloride 20 mEq tablet extended release 40 meq PO 5XD potassium chloride 10 mEq capsule, extended release 10 meq PO BID 10 Days Qty: 20 0RF Discharge Orders: Discharge ED (Routine); Ordered 06/14/22 Ordered By: Robert Lerner Discharge Diet: Advance as tolerated Discharge Activity: Resume usual activity Patient Instructions: Weakness (ED) Coding Level of Care Code ED Web Applications Architect for Pravin Fwd Exam Detailed
--- NOTE | 2022-06-14 17:47 | CTR_ITS ---
PROCEDURE INFORMATION: Exam: CT Head Without Contrast Exam date and time: 06/14/2022 5:57 PM Age: 36 years old Clinical indication: Syncope and collapse; Additional info: Closed head injury TECHNIQUE: Imaging protocol: Computed tomography of the head without contrast. Radiation optimization: All CT scans at this facility use at least one of these dose optimization techniques: automated exposure control; mA and/or kV adjustment per patient size (includes targeted exams where dose is matched to clinical indication); or iterative reconstruction. COMPARISON: CT head wo con* [id number] 05/08/2022 3:45 PM RADIATION DOSE METRICS: Total DLP (mGy-cm): 1069.82 FINDINGS: Brain: There is no acute intracranial hemorrhage or abnormal extra-axial fluid collection identified. There is no intracranial mass effect or shift of midline structures. The lara-white differentiation is preserved throughout. There is no sulcal effacement. The basilar cisterns are open. Cerebral ventricles: No hydrocephalus or ventricular effacement. Paranasal sinuses: Visualized sinuses are unremarkable. No fluid levels. Mastoid air cells: Visualized mastoid air cells are well aerated. Bones/joints: No calvarial fracture or destructive osseous lesions are seen. Soft tissues: Unremarkable. CT/CT head wo con* [id number] IMPRESSION: No acute intracranial pathology identified by CT.
[2022-06-14 18:21] LABS: Basophils # 0.1 10^3/uL (0.0-0.1); Basophils % 1.2 %; Eosinophils # 0.4 10^3/uL (0.0-0.8); Eosinophils % 4.1 %; Hematocrit 44.1 % (37.0-47.0); Hemoglobin 14.9 g/dL (11.5-15.3); Lymphocytes # 4.3 10^3/uL (0.8-4.8); Lymphocytes % 46.8 %; Mean Corpuscular HGB Conc 33.8 g/dL (30.0-36.0); Mean Corpuscular Hemoglobin 29.6 pg (28.0-34.0); Mean Corpuscular Volume 87.7 fl (81-99); Mean Platelet Volume 9.5 fL (7.4-10.4); Monocytes # 0.5 10^3/uL (0.2-0.9); Monocytes % 5.9 %; Neutrophils # 3.81 10^3/uL (1.8-7.7); Neutrophils % 41.8 %; Nucleated Red Blood Cells % 0 %; Platelet Count 542 10^3/cmm (130-400); Red Blood Count 5.03 10^6/uL (4.1-5.3); Red Cell Distribution Width 12.3 % (12.1-15.1); White Blood Count 9.1 10^3/uL (4.0-10.0)
[2022-06-14] MEDS: sodium chloride 0.9% 500 ML IV (18:35)
[2022-06-14 18:46] LABS: Anion Gap 16.5 (5-19); Blood Urea Nitrogen 9 mg/dL (6-20); Calcium 9.6 mg/dL (8.5-10.5); Carbon Dioxide 29 mmol/L (22-29); Chloride 96 mmol/L (98-107); Glomerular Filtration Rate 93.6 mL/min (90-130); Glucose 83 mg/dL (65-115); Osmolality Calculated 282 mOsm/kg (285-295); Potassium 4.5 mmol/L (3.5-5.1); Sodium 137 mmol/L (136-145)
[2022-06-14 19:00] VITALS: BP 100/57; PULSE 98; RESP 20
[2022-06-14] MEDS: LORazepam 1 mg Tablet PO (19:40)
[2022-06-14 20:45] VITALS: BP 110/63; PULSE 98; RESP 20
== END 2022-06-14 20:46 | disposition home or self-care (01) ==
PROVIDERS: Family Medicine; Emergency Provider Emergency Medicine
DX: R55 Syncope and collapse (principal); R53.1 Weakness; Z79.01 Long term (current) use of anticoagulants
CPT/HCPCS: 70450; 80048; 85025; 96360; 99285; J7040

== ENCOUNTER 2022-06-18 14:45 | Outpatient (CLI) | payer MEDICAID, SELFPAY ==
[2022-06-18 16:40] LABS: Anion Gap 17.6 (5-19); Blood Urea Nitrogen 6 mg/dL (6-20); Calcium 9.5 mg/dL (8.5-10.5); Carbon Dioxide 27 mmol/L (22-29); Chloride 94 mmol/L (98-107); Glomerular Filtration Rate 93.6 mL/min (90-130); Glucose 92 mg/dL (65-115); Magnesium 1.9 mg/dL (1.7-2.3); Osmolality Calculated 279 mOsm/kg (285-295); Sodium 136 mmol/L (136-145)
[2022-06-18 16:49] LABS: Potassium 2.6 mmol/L (3.5-5.1)
--- NOTE | 2022-06-18 22:39 | PC.NURSE ---
The patient arrived to the floor around 1909. The patient stated she had walked herself up and had not seen anyone yet. This nurse spoke with the charge nurse because the patient was not in the system and was told the patient was an outpatient in a bed and was admitted from Dr. Veloz's office. This nurse called registration to have the patient entered into the system. No orders were in at this time. This nurse spoke with Thao Olivares RN who called the [employer], CHARLES Ritchie who placed the order in for the patient's fluid. Patient had came to speak with the charge nurse to request if she could be discharged since she was given the option to take her oral medication and come in tomorrow for her infusion since it was already so late and would be after midnight before she would be able to go home. This nurse received a call from Dr. Veloz that stated she could take her oral medication and come in tomorrow for the infusion. Patient left the floor at 2111 with all her belongings.
== END 2022-06-18 21:12 | disposition home or self-care (01) ==
LOC: LAB 14:49 → MEDSURG 19:51
PROVIDERS: Absent Provider Nurse Practitioner Family; Visit Provider Internal Medicine Medical Oncology
DX: E87.6 Hypokalemia (principal)
CPT/HCPCS: 80048; 83735

== ENCOUNTER 2022-06-19 10:48 | Outpatient (CLI) | payer MEDICAID, SELFPAY ==
[2022-06-19] MEDS: sodium chlor 0.9% + KCl 40 mEq 40 MEQ/1,000 ML BAG 250 MEQ IV (11:27)
--- NOTE | 2022-06-19 14:47 | PC.NURSE ---
pt complained of chest pain/pressure 04/18. VSS 104/68, pulse 97 regular, O2 97% RA. This nurse called Dr. Veloz, orders for EKG received and completed. EKG report was read back to Dr. Veloz. No further orders at this time. Pt pain reported pain at /10 at this time. 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 Will continue to monitor and assess patient.
--- NOTE | 2022-06-19 14:57 | ECG_ITS ---
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 Measurements Intervals [place] Rate: 96 P: 64 GA: 171 QRS: 79 QRSD: 84 T: 58 QT: 367 QTc: 465 Interpretive Statements SINUS RHYTHM POSSIBLE LEFT ATRIAL ENLARGEMENT [-0.1mV P-WAVE IN V1/V2] LOW QRS VOLTAGE IN PRECORDIAL LEADS [QRS DEFLECTION < 1.0 mV IN CHEST LEADS] Compared to ECG 05/18/2022 13:23:34 Low QRS voltage now present Sinus tachycardia no longer present T-wave abnormality no longer present Electronically Signed On 06-20-2022 13:19:16 CDT by Froilan Flores M.D. [id number] f
== END 2022-06-19 15:58 | disposition home or self-care (01) ==
LOC: OPMS 10:49 → MEDSURG 10:49
PROVIDERS: Visit Provider Internal Medicine Medical Oncology
DX: R07.9 Chest pain, unspecified (principal)
CPT/HCPCS: 93005

== ENCOUNTER 2022-06-25 14:21 | Emergency (ER) | payer MEDICAID, SELFPAY ==
[2022-06-25] VITALS (9 sets, daily range): BP systolic 96–124; BP diastolic 64–82; PULSE 86–133; RESP 15–23; TEMP 36.4; O2SAT 95–98
--- NOTE | 2022-06-25 14:40 | ECG_ITS ---
[facility] Test Date: 2022-06-25 Pat Name: Anayeli Herrera Department: Room: Gender: Female Collection Coordinator: : 1985 Requested By: Robert Lerner Order Number: [id number] Sharri MD: Mary Recinos M.D. Measurements Intervals [place] Rate: 133 P: 66 NV: 148 QRS: 74 QRSD: 82 T: 66 QT: 332 QTc: 495 Interpretive Statements SINUS TACHYCARDIA NONSPECIFIC T-WAVE ABNORMALITY ABNORMAL RHYTHM ECG Compared to ECG 06/19/2022 14:39:56 T-wave abnormality now present Sinus rhythm no longer present Electronically Signed On 06-26-2022 8:35:52 CDT by Mary Recinos M.D. [id number] f
--- NOTE | 2022-06-25 15:46 | ED_ITS ---
HPI - Chest Pain General: Chief Complaint: Chest Pain Stated Complaint: low potassium, chest pain Time Seen by Provider: 06/25/22 15:06 PFSH ED PFSH: Medical History Chronic migraine Generalized anxiety disorder History of major depression History of supraventricular tachycardia History of syncope She has history of syncope in association with tachycardia Psychiatric care Surgical History History of cholecystectomy (11/2020) History of hysterectomy (08/2018) Without oophorectomy History of laparoscopy (2003) to diagnose endometriosis Family History Mother Chronic kidney disease (CKD) Other CAD (coronary artery disease) Cancer Clotting disorder Diabetes Hyperlipidemia Hypertension Lung disease Denies family history of Dementia Psychiatric illness Suicide Anesthesia complication Bleeding disorder Stroke Social History Smoking and tobacco status: never smoked Alcohol intake: never History of recent travel: No Course Vital Signs: Vital signs: Vital Signs Temperature 97.5 F L 06/25/22 14:36 Pulse Rate 133 H 06/25/22 14:36 Respiratory Rate 16 06/25/22 14:36 Blood Pressure 124/82 06/25/22 14:36 Pulse Oximetry 98 06/25/22 14:36 Oxygen Delivery Me thod 06/25/22 14:36 Discharge Plan Discharge Condition: Stable Prescriptions: No Action clonazepam 0.5 mg tablet 0.5 mg PO TID PRN (Reason: anxiety) Qty: 90 1RF levofloxacin 500 mg tablet 500 mg PO DAILY 7 Days Qty: 7 0RF levofloxacin 500 mg tablet 500 mg PO DAILY 8 Days Qty: 8 0RF Rx Instructions: Add to previous 7-day course to make a total of 15 days. Eliquis 5 mg tablet 5 mg PO BID Qty: 60 3RF potassium chloride 20 mEq tablet extended release 40 meq PO TID Qty: 180 0RF acetaminophen-codeine 300-30 mg tablet 2 tab PO Q4H PRN (Reason: pain) Qty: 30 0RF Coding Level of Care Code ED Hotshot Superintendent for [facility] Manju
--- NOTE | 2022-06-25 15:53 | W.ED.GENADLT ---
HPI - General Adult General: Chief complaint: Chest Pain Stated complaint: low potassium, chest pain Time Seen by Provider: 06/25/22 15:06 History of Present Illness: Patient is a 36-year-old female history of PE on apixaban, recurrent hypokalemia requiring IV potassium infusion presenting to the emergency room for evaluation of generalized body aches, nausea vomiting chest pain shortness of breath. Patient tells me that she usually feels this way when her potassium is running low. Patient last received infusion 4 days ago. Patient takes daily potassium. Patient noted that earlier today patient has had multiple episodes of emesis with associated chest pain shortness of breath. Patient does come to the emergency to get her potassium checked. Patient has any fever/chills, cough, runny nose sore throat, diarrhea, melena/hematochezia. Onset: earlier today Duration:ongoing Location:home Severity:moderate Associated symptoms: Reports chest pain, dyspnea, nausea and vomiting; Deny rash or palpitations Review of Systems Const: Reports: fatigue and other (+body ache); Denies: fever(s) or chills Eyes: Denies: change in vision ENMT: Denies: mouth pain Card: Reports: chest pain; Denies: palpitations Resp: Reports: dyspnea; Denies: non-productive cough GI: Reports: nausea and vomiting; Denies: abdominal pain or diarrhea : Denies: dysuria Musc: Denies: extremity pain Skin/Breast: Denies: rash or new lesions Neuro: Denies: weakness in extremities Psych: Reports: other (Normal mood) Kody/Lymph: Denies: easy bruising PFSH ED PFSH: Medical History Chronic migraine Generalized anxiety disorder History of major depression History of supraventricular tachycardia History of syncope She has history of syncope in association with tachycardia Psychiatric care Surgical History History of cholecystectomy (11/2020) History of hysterectomy (08/2018) Without oophorectomy History of laparoscopy (2003) to diagnose endometriosis Family History Mother Chronic kidney disease (CKD) Other CAD (coronary artery disease) Cancer Clotting disorder Diabetes Hyperlipidemia Hypertension Lung disease Denies family history of Dementia Psychiatric illness Suicide Anesthesia complication Bleeding disorder Stroke Social History Smoking and tobacco status: never smoked Alcohol intake: never History of recent travel: No Physical Exam Const: COMMON NORMALS: alert HENMT: COMMON NORMALS: atraumatic HEAD & SCALP: atraumatic MOUTH: moist mucous membranes not abnormal Eye: COMMON NORMALS: EOMs intact bilaterally and conjunctivae normal CONJUNCTIVA: Yes conjunctivae normal Neck/C-Spine: COMMON NORMALS: full ROM and supple Resp: COMMON NORMALS: normal respiratory effort and clear to auscultation bilaterally AUSCULTATION: clear to auscultation bilaterally Cardio: COMMON NORMALS: regular rate RATE: regular rate GI: COMMON NORMALS: Soft to palpation and non-tender PALPATION: Yes Soft to palpation Extremity: COMMON NORMALS: full ROM Neuro: SENSORIUM/ORIENTATION: Yes alert MOTOR EXAM: No Abnormal motor strength present and Other motor observations present (no focal motor deficits) Psych: COMMON NORMALS: speech normal SPEECH: Yes normal speech MOOD & AFFECT: Yes euthymic mood Course Vital Signs: Vital signs: Vital Signs Temperature 97.5 F L 06/25/22 14:36 Pulse Rate 88 06/25/22 22:16 Respiratory Rate 21 H 06/25/22 22:16 Blood Pressure 105/64 06/25/22 16:30 Pulse Oximetry 98 06/25/22 22:16 Oxygen Delivery Me thod 06/25/22 21:46 [facility] - General Adult Medical Decision Making Patient is a 36-year-old female history of PE on apixaban, recurrent hypokalemia requiring IV potassium infusion presenting to the emergency room for evaluation of generalized body aches, nausea vomiting chest pain shortness of breath. Initially in triage, patient was noted to be tachycardic. However on arrival, patient's heart rate improved without any intervention. Patient is noted have potassium 2.8 today with a normal magnesium number. Patient was 40 mEq of potassium IV and 40 mEq p.o. I have given patient close follow-up primary care provider for reassessment of potassium number. Patient has no QTC prolongations or UA for today. No suspicion for aortic dissection given no widened mediastinum, 2+ upper extremity pulses, or tearing pain. No suspicion for PE given no pleuritic chest pain, recent immobilization or surgery hemoptysis, or other VTE risk factors. EKG is non-ischemic. XR normal. Patient's troponin is unremarkable EKG is nonischemic, currently not complain of chest pain, I do not suspect this is ACS. Rx potassium chloride for hypokalemia Disposition: Discharge. Patient counseled regarding diagnostic impression, treatment plan. Patient given ED strict return precautions to return for continuation, worsening, or development of new symptoms. Instructed to f/u w/ PCP regarding symptoms today. Patient verbalized understanding. Lab Data : 06/25/22 15:54 06/25/22 15:54 Radiology Impressions Chest X-Ray 06/25/22 21:19 IMPRESSION: No acute findings. Laboratory Results WBC 8.4 10^3/uL (4.0-10.0) 06/25/22 15:54 RBC 4.92 10^6/uL (4.1-5.3) 06/25/22 15:54 Hgb 14.6 g/dL (11.5-15.3) 06/25/22 15:54 Hct 41.1 % (37.0-47.0) 06/25/22 15:54 MCV 83.5 fl (81-99) 06/25/22 15:54 MCH 29.7 pg (28.0-34.0) 06/25/22 15:54 MCHC 35.5 g/dL (30.0-36.0) 06/25/22 15:54 RDW 12.0 % (12.1-15.1) L 06/25/22 15:54 Plt Count 346 10^3/cmm (130-400) 06/25/22 15:54 MPV 9.5 fL (7.4-10.4) 06/25/22 15:54 Neut % (Auto) 60.2 % 06/25/22 15:54 Lymph % (Auto) 29.2 % 06/25/22 15:54 Ray % (Auto) 7.4 % 06/25/22 15:54 Eos % (Auto) 1.9 % 06/25/22 15:54 Baso % (Auto) 1.1 % 06/25/22 15:54 Neut # (Auto) 5.03 10^3/uL (1.8-7.7) 06/25/22 15:54 Lymph # (Auto) 2.4 10^3/uL (0.8-4.8) 06/25/22 15:54 Ray # (Auto) 0.6 10^3/uL (0.2-0.9) 06/25/22 15:54 Eos # (Auto) 0.2 10^3/uL (0.0-0.8) 06/25/22 15:54 Baso # (Auto) 0.1 10^3/uL (0.0-0.1) 06/25/22 15:54 Nucleated RBC % (auto) 0 % 06/25/22 15:54 Nucleated RBCs # 0.0 /100WBC 06/25/22 15:54 Sodium 135 mmol/L (136-145) L 06/25/22 15:54 Potassium 2.8 mmol/L (3.5-5.1) L* 06/25/22 15:54 Chloride 94 mmol/L (98-107) L 06/25/22 15:54 Carbon Dioxide 26 mmol/L (22-29) 06/25/22 15:54 Anion Gap 17.8 (5-19) 06/25/22 15:54 BUN 8 mg/dL (6-20) 06/25/22 15:54 Creatinine 0.6 mg/dL (0.5-0.9) 06/25/22 15:54 GFR Calculation 111.9 mL/min (90-130) 06/25/22 15:54 Glucose 91 mg/dL (65-115) 06/25/22 15:54 Calculated Osmolality 278 mOsm/kg (285-295) L 06/25/22 15:54 Calcium 9.6 mg/dL (8.5-10.5) 06/25/22 15:54 Magnesium 2.1 mg/dL (1.7-2.3) 06/25/22 15:54 Total Bilirubin 0.9 mg/dL (0.15-1.2) 06/25/22 15:54 AST 28 U/L (0-32) 06/25/22 15:54 ALT 21 U/L (0-33) 06/25/22 15:54 Alkaline Phosphatase 73 U/L (35-105) 06/25/22 15:54 Troponin T Baseline 6 ng/L (0-10) 06/25/22 15:54 Troponin T 120 Minute 6.00 ng/L (0-10) 06/25/22 18:37 Delta Troponin T 0 ABS# (0-10) 06/25/22 18:37 Total Protein 7.6 g/dL (6.6-8.7) 06/25/22 15:54 Albumin 4.6 g/dL (3.5-5.2) 06/25/22 15:54 Globulin 3.0 g/dL (1.3-4.6) 06/25/22 15:54 Imaging Data Other Imaging: Radiologist's impression: [address] [address] XRay Report Signed Patient: Anayeli Herrera Unit #: [id number] : 1985 Age/Sex: 36 / F ADM Date: 06/25/22 Loc: ER Room/Bed: Attending Dr: Ordering Provider/Ordering MD: Nahomy Russell MD Date of Service: 06/25/22 Procedure(s): XR chest 1V portable [id number] Accession Number(s): [id number] Report Number: [id number] PROCEDURE INFORMATION: Exam: XR Chest Exam date and time: 06/25/2022 9:27 PM Age: 36 years old Clinical indication: Sternal or substernal pain; Prior surgery; Surgery type: Breast; Additional info: Chest pain/ dyspnea. TECHNIQUE: Imaging protocol: Radiologic exam of the chest. Views: 1 view. COMPARISON: CR XR chest 1V portable [id number] 05/18/2022 1:43 PM FINDINGS: Lungs: Unremarkable. No consolidation. Pleural spaces: Unremarkable. No pleural effusion. No pneumothorax. Heart/Mediastinum: Unremarkable. No cardiomegaly. Bones/joints: Unremarkable. XR/XR chest 1V portable [id number] IMPRESSION: No acute findings. ? Dictated By: Maikel Dumont MD Signed By: Maikel Dumont MD Signed Date/Time: 06/25/222218 DD/ 26 Discharge Plan Discharge Patient Disposition: Home Clinical Impression: Acute hypokalemia Condition: Stable Prescriptions: New potassium chloride 10 mEq capsule, extended release 10 meq PO BID 10 Days Qty: 20 0RF No Action clonazepam 0.5 mg tablet 0.5 mg PO TID PRN (Reason: anxiety) Qty: 90 1RF levofloxacin 500 mg tablet 500 mg PO DAILY 7 Days Qty: 7 0RF levofloxacin 500 mg tablet 500 mg PO DAILY 8 Days Qty: 8 0RF Rx Instructions: Add to previous 7-day course to make a total of 15 days. Eliquis 5 mg tablet 5 mg PO BID Qty: 60 3RF hydrocodone-acetaminophen 5-325 mg tablet 1 - 2 tab PO Q4H PRN (Reason: Pain) Narcan 4 mg/actuation spray,non-aerosol See Rx Instructions .ROUTE .COMPLEX Rx Instructions: 1 spray intranasally as directed potassium chloride 20 mEq tablet extended release 40 meq PO 5XD Discharge Orders: Discharge ED (Routine); Ordered 06/25/22 Ordered By: Nahomy Russell Discharge Diet: Advance as tolerated Discharge Activity: Increase activity as tolerated Patient Instructions: Hypokalemia (ED) Activity Restrictions/Additional Instructions: Come back if you have any new or concerning issues. Coding Level of Care Code ED Assistant Shift Supervisor for Pravin Fwd 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
[2022-06-25] MEDS: ondansetron 2 mg/ML SDV 2 mL 4 MG IVP (16:08)
[2022-06-25 16:11] LABS: Basophils # 0.1 10^3/uL (0.0-0.1); Basophils % 1.1 %; Eosinophils # 0.2 10^3/uL (0.0-0.8); Eosinophils % 1.9 %; Hematocrit 41.1 % (37.0-47.0); Hemoglobin 14.6 g/dL (11.5-15.3); Lymphocytes # 2.4 10^3/uL (0.8-4.8); Lymphocytes % 29.2 %; Mean Corpuscular HGB Conc 35.5 g/dL (30.0-36.0); Mean Corpuscular Hemoglobin 29.7 pg (28.0-34.0); Mean Corpuscular Volume 83.5 fl (81-99); Mean Platelet Volume 9.5 fL (7.4-10.4); Monocytes # 0.6 10^3/uL (0.2-0.9); Monocytes % 7.4 %; Neutrophils # 5.03 10^3/uL (1.8-7.7); Neutrophils % 60.2 %; Nucleated Red Blood Cells % 0 %; Platelet Count 346 10^3/cmm (130-400); Red Blood Count 4.92 10^6/uL (4.1-5.3); White Blood Count 8.4 10^3/uL (4.0-10.0)
[2022-06-25] MEDS: lactated ringers 1,000 ML 999 ML IV (16:13)
[2022-06-25 16:43] LABS: Troponin(5th) Baseline 6 ng/L (0-10)
[2022-06-25 16:51] LABS: Alanine Aminotransferase 21 U/L (0-33); Albumin Level 4.6 g/dL (3.5-5.2); Alkaline Phosphatase 73 U/L (35-105); Anion Gap 17.8 (5-19); Aspartate Amino Transferase 28 U/L (0-32); Blood Urea Nitrogen 8 mg/dL (6-20); Calcium 9.6 mg/dL (8.5-10.5); Carbon Dioxide 26 mmol/L (22-29); Chloride 94 mmol/L (98-107); Glomerular Filtration Rate 111.9 mL/min (90-130); Glucose 91 mg/dL (65-115); Magnesium 2.1 mg/dL (1.7-2.3); Osmolality Calculated 278 mOsm/kg (285-295); Sodium 135 mmol/L (136-145); Total Bilirubin 0.9 mg/dL (0.15-1.2); Total Protein 7.6 g/dL (6.6-8.7)
[2022-06-25 16:53] LABS: Potassium 2.8 mmol/L (3.5-5.1)
[2022-06-25] MEDS: potassium chloride ER 20 mEq Tablet 40 MEQ PO (17:31)
--- NOTE | 2022-06-25 17:34 | ECG_ITS ---
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 Measurements Intervals [place] Rate: 99 P: 57 NV: 172 QRS: 76 QRSD: 96 T: 57 QT: 364 QTc: 469 Interpretive Statements SINUS RHYTHM POSSIBLE LEFT ATRIAL ENLARGEMENT [-0.1mV P-WAVE IN V1/V2] POSSIBLE RIGHT VENTRICULAR CONDUCTION DELAY [RSR (QR) IN V1/V2] Compared to ECG 06/25/2022 14:40:51 Sinus tachycardia no longer present T-wave abnormality no longer present Electronically Signed On 06-26-2022 8:39:39 CDT by Mary Recinos M.D. [id number]
--- NOTE | 2022-06-25 19:07 | PC.NURSE ---
report given to CHARLES Lara
--- NOTE | 2022-06-25 19:28 | PC.NURSE ---
report taken from em schultz
--- NOTE | 2022-06-25 19:28 | PC.NURSE ---
assumed care of patient at this time, potassium infusion with lidocaine not infusing, patient states was never started, LR 1000ml bag found connected with gravity tubing to piv, empty. pharmacy notified of findings and notified that it is not an option to pull potassium from the pyxis, states that the order will have to be cancelled and entered again.
[2022-06-25 19:50] LABS: Troponin 5 2HR Delta 0 ABS# (0-10)
--- NOTE | 2022-06-25 19:51 | PC.NURSE ---
Medications given without documentation, unable to determine how much LR received, Marco SOTO unsure if LR total bolus completed.
--- NOTE | 2022-06-25 19:56 | PC.NURSE ---
[facility] not allowing this nurse to reorder potassium with lidocaine infusion per pharmacy advice, called pharmacy and spoke with Jd, who is to reenter the order. awaiting order and arrival of infusion.
[2022-06-25] MEDS: lidocaine 1% 5 ML in potassium chloride premix 100 ML 25 ML IV (20:09)
--- NOTE | 2022-06-25 20:09 | PC.NURSE ---
potassium infusion started, patient requesting medication for headache.
--- NOTE | 2022-06-25 21:19 | XRR_ITS ---
PROCEDURE INFORMATION: Exam: XR Chest Exam date and time: 06/25/2022 9:27 PM Age: 36 years old Clinical indication: Sternal or substernal pain; Prior surgery; Surgery type: Breast; Additional info: Chest pain/ dyspnea. TECHNIQUE: Imaging protocol: Radiologic exam of the chest. Views: 1 view. COMPARISON: CR XR chest 1V portable [id number] 05/18/2022 1:43 PM FINDINGS: Lungs: Unremarkable. No consolidation. Pleural spaces: Unremarkable. No pleural effusion. No pneumothorax. Heart/Mediastinum: Unremarkable. No cardiomegaly. Bones/joints: Unremarkable. XR/XR chest 1V portable [id number] IMPRESSION: No acute findings.
--- NOTE | 2022-06-25 21:20 | PC.NURSE ---
beverage given to patient for request, reports discomfort at right arm infusion, no signs of infiltration, patient educated on discomfort related to potassium infusions, warm compress applied to area, reports improvement. tylenol requested of dr vega for patient headache.
[2022-06-25] MEDS: acetaminophen 500 mg Tablet PO (21:47)
[2022-06-25 22:44] LABS: Troponin 5 6HR Delta 0 ng/L (0-12)
[2022-06-26 00:54] VITALS: BP 119/83; PULSE 115; RESP 19; O2SAT 100
== END 2022-06-26 00:55 | disposition home or self-care (01) ==
PROVIDERS: Emergency Medicine; Emergency Provider Emergency Medicine
DX: E87.6 Hypokalemia (principal)
CPT/HCPCS: 36415; 71045; 80053; 83735; 84484; 85025; 93005; 96365; 96366; 96375; 99285; J2405; J3480

== ENCOUNTER 2022-07-01 16:14 | Outpatient (CLI) | payer MEDICAID, SELFPAY ==
[2022-07-01 17:10] LABS: Alanine Aminotransferase 18 U/L (0-33); Albumin Level 4.7 g/dL (3.5-5.2); Alkaline Phosphatase 66 U/L (35-105); Anion Gap 15.8 (5-19); Aspartate Amino Transferase 26 U/L (0-32); Blood Urea Nitrogen 5 mg/dL (6-20); Calcium 9.7 mg/dL (8.5-10.5); Carbon Dioxide 29 mmol/L (22-29); Chloride 98 mmol/L (98-107); Globulin 2.5 g/dL (1.3-4.6); Glomerular Filtration Rate 111.9 mL/min (90-130); Glucose 89 mg/dL (65-115); Osmolality Calculated 287 mOsm/kg (285-295); Sodium 140 mmol/L (136-145); Total Bilirubin 0.4 mg/dL (0.15-1.2); Total Protein 7.2 g/dL (6.6-8.7)
[2022-07-02 08:38] LABS: Potassium 2.8 mmol/L (3.5-5.1)
== END 2022-07-01 16:15 | disposition home or self-care (01) ==
LOC: LAB 16:17
PROVIDERS: PCP Family Medicine; Visit Provider Internal Medicine Medical Oncology
DX: E87.6 Hypokalemia (principal)
CPT/HCPCS: 36415; 80053

== ENCOUNTER 2022-07-08 16:16 | Outpatient (CLI) | payer MEDICAID, SELFPAY ==
[2022-07-08 17:46] LABS: Alanine Aminotransferase 18 U/L (0-33); Albumin Level 4.3 g/dL (3.5-5.2); Alkaline Phosphatase 61 U/L (35-105); Anion Gap 15.8 (5-19); Aspartate Amino Transferase 29 U/L (0-32); Blood Urea Nitrogen 5 mg/dL (6-20); Calcium 9.6 mg/dL (8.5-10.5); Carbon Dioxide 30 mmol/L (22-29); Chloride 94 mmol/L (98-107); Glomerular Filtration Rate 111.9 mL/min (90-130); Glucose 78 mg/dL (65-115); Osmolality Calculated 280 mOsm/kg (285-295); Sodium 137 mmol/L (136-145); Total Bilirubin 0.6 mg/dL (0.15-1.2); Total Protein 7.3 g/dL (6.6-8.7)
[2022-07-09 08:38] LABS: Potassium 2.8 mmol/L (3.5-5.1)
== END 2022-07-08 16:17 | disposition home or self-care (01) ==
LOC: LAB 16:19
PROVIDERS: Visit Provider Internal Medicine Medical Oncology
DX: E87.6 Hypokalemia (principal)
CPT/HCPCS: 36415; 80053

== ENCOUNTER 2022-07-09 08:00 | Oncology outpatient (recurring) (ONCR) | payer MEDICAID, SELFPAY ==
[2022-06-16 10:09] LABS: Alanine Aminotransferase 22 U/L (0-33); Albumin Level 4.1 g/dL (3.5-5.2); Alkaline Phosphatase 75 U/L (35-105); Anion Gap 14.4 (5-19); Aspartate Amino Transferase 32 U/L (0-32); Blood Urea Nitrogen 6 mg/dL (6-20); Calcium 9.1 mg/dL (8.5-10.5); Carbon Dioxide 28 mmol/L (22-29); Chloride 96 mmol/L (98-107); Globulin 2.6 g/dL (1.3-4.6); Glomerular Filtration Rate 93.6 mL/min (90-130); Glucose 104 mg/dL (65-115); Osmolality Calculated 278 mOsm/kg (285-295); Potassium 3.4 mmol/L (3.5-5.1); Sodium 135 mmol/L (136-145); Total Bilirubin 0.4 mg/dL (0.15-1.2); Total Protein 6.7 g/dL (6.6-8.7)
[2022-06-23 08:17] LABS: Alanine Aminotransferase 20 U/L (0-33); Albumin Level 4.2 g/dL (3.5-5.2); Alkaline Phosphatase 65 U/L (35-105); Anion Gap 18.3 (5-19); Aspartate Amino Transferase 31 U/L (0-32); Blood Urea Nitrogen 5 mg/dL (6-20); Calcium 9.5 mg/dL (8.5-10.5); Carbon Dioxide 26 mmol/L (22-29); Chloride 97 mmol/L (98-107); Globulin 2.7 g/dL (1.3-4.6); Glomerular Filtration Rate 93.6 mL/min (90-130); Glucose 104 mg/dL (65-115); Osmolality Calculated 284 mOsm/kg (285-295); Potassium 3.3 mmol/L (3.5-5.1); Sodium 138 mmol/L (136-145); Total Bilirubin 0.4 mg/dL (0.15-1.2); Total Protein 6.9 g/dL (6.6-8.7)
[2022-07-02] MEDS: sodium chlor 0.9% + KCl 40 mEq 40 MEQ/1,000 ML BAG 250 MEQ IV (08:27)
[2022-07-02 12:22] VITALS: BP 99/59; PULSE 87; RESP 16; TEMP 37.1; O2SAT 98
--- NOTE | 2022-07-05 12:01 | CT_ITS ---
WS: [id number] CTA CHEST WITH CT ABDOMEN AND PELVIS. HISTORY: Hypokalemia, history of blood clots. TECHNIQUE: CT angiogram is performed through the chest. Additional imaging is performed through the a bdomen and pelvis with IV contrast. Sagittal and coronal reformats have been submitted. MIP imaging also reviewed. All CT scans at [facility] use at least one of these dose optimization techniqu es: automated exposure control; mA and/or kV adjustment per patient size (includes targeted exams whe re dose is matched to clinical indication); or iterative reconstruction. Contrast: Omnipaque 350; 85 cc IV. DLP: 1152.37 mGy.cm COMPARISON: 05/07/2022, 11/07/2020 Chest CTA: Very good opacification of the pulmonary arteries. There are no filling defects. No enlarg ement of the pulmonary artery. Normal size aorta. 3 mm noncalcified nodule along the minor fissure. N o pneumonia or suspicious mass or nodule. No pericardial or pleural effusions. Mild soft tissue prominence in the anterior mediastinum is probably residual thymic tissue. Bilateral indeterminate hilar lymph nodes. Largest lymph node measures 12 mm at the LEFT hilum. Bilateral dorie st implants. No soft tissue abnormality along the chest wall. Abdomen CT: Normal size liver and spleen. Prior cholecystectomy. Normal pancreas and adrenal glands. No renal obstruction or mass. Small bilateral extrarenal pelves. Normal aorta. No adenopathy or ascit es. No GI tract obstruction or colitis. Numerous diverticula and wall thickening beginning in the descend ing colon to the sigmoid. Large diverticulum in the sigmoid region. No acute inflammation. Pelvic CT: Minimally distended urinary bladder. Prior hysterectomy. Both ovaries are identified. No osseous bone destruction. CT/CT angio chest w abd pel w con IMPRESSION: 1. No pulmonary embolism. Normal appearance of the pulmonary arteries. 2. Prior hysterectomy and cholecystectomy. 3. Indeterminate hilar lymph nodes. Largest lymph node is 12 mm on the LEFT. 4. Mildly prominent thymic tissue. No change since 05/07/2022. 5. Colonic diverticula.
[2022-07-05] MEDS: iohexol 350 mg/mL 100 mL Btl IV (13:56)
[2022-07-09] MEDS: sodium chlor 0.9% + KCl 40 mEq 40 MEQ/1,000 ML BAG 250 MEQ IV (08:07)
== END 2022-07-09 23:59 | disposition home or self-care (01) ==
PROVIDERS: Visit Provider Internal Medicine Medical Oncology
DX: R06.00 Dyspnea, unspecified (principal); E87.6 Hypokalemia; R00.0 Tachycardia, unspecified
CPT/HCPCS: 36415; 71275; 74177; 80053; 96365; 96366; 96367

== ENCOUNTER 2022-08-06 06:21 | Oncology outpatient (recurring) (ONCR) | payer MEDICAID, SELFPAY ==
[2022-07-29 17:22] LABS: Anion Gap 13.8 (5-19); Blood Urea Nitrogen 8 mg/dL (6-20); Calcium 9.8 mg/dL (8.5-10.5); Carbon Dioxide 30 mmol/L (22-29); Chloride 98 mmol/L (98-107); Glomerular Filtration Rate 111.9 mL/min (90-130); Glucose 94 mg/dL (65-115); Magnesium 2.2 mg/dL (1.7-2.3); Osmolality Calculated 286 mOsm/kg (285-295); Sodium 139 mmol/L (136-145)
[2022-07-30 09:15] LABS: Potassium 2.8 mmol/L (3.5-5.1)
[2022-08-05 12:23] LABS: Anion Gap 15.9 (5-19); Blood Urea Nitrogen 6 mg/dL (6-20); Calcium 9.9 mg/dL (8.5-10.5); Carbon Dioxide 29 mmol/L (22-29); Chloride 97 mmol/L (98-107); Glomerular Filtration Rate 93.6 mL/min (90-130); Glucose 88 mg/dL (65-115); Magnesium 1.9 mg/dL (1.7-2.3); Osmolality Calculated 285 mOsm/kg (285-295); Sodium 139 mmol/L (136-145)
[2022-08-05 12:25] LABS: Potassium 2.9 mmol/L (3.5-5.1)
[2022-08-06 07:06] LABS: Blood Urea Nitrogen 7 mg/dL (6-20); Calcium 10.2 mg/dL (8.5-10.5); Carbon Dioxide 28 mmol/L (22-29); Chloride 96 mmol/L (98-107); Glomerular Filtration Rate 80.3 mL/min (90-130); Glucose 107 mg/dL (65-115); Magnesium 1.8 mg/dL (1.7-2.3); Osmolality Calculated 280 mOsm/kg (285-295); Sodium 136 mmol/L (136-145)
== END 2022-08-09 23:59 | disposition home or self-care (01) ==
LOC: LAB 08-09 08:35 → ONCMED 08-09 13:52
PROVIDERS: Internal Medicine Hematology & Oncology; Visit Provider Internal Medicine Medical Oncology
DX: E87.6 Hypokalemia (principal)
CPT/HCPCS: 36415; 80048; 83735

== ENCOUNTER 2022-08-06 08:08 | Oncology outpatient (recurring) (ONCR) | payer MEDICAID, SELFPAY ==
[2022-07-14 15:10] LABS: Alanine Aminotransferase 18 U/L (0-33); Albumin Level 4.6 g/dL (3.5-5.2); Alkaline Phosphatase 53 U/L (35-105); Anion Gap 21.8 (5-19); Aspartate Amino Transferase 27 U/L (0-32); Blood Urea Nitrogen 4 mg/dL (6-20); Calcium 9.4 mg/dL (8.5-10.5); Carbon Dioxide 26 mmol/L (22-29); Chloride 90 mmol/L (98-107); Globulin 2.5 g/dL (1.3-4.6); Glomerular Filtration Rate 111.9 mL/min (90-130); Glucose 114 mg/dL (65-115); Osmolality Calculated 278 mOsm/kg (285-295); Sodium 135 mmol/L (136-145); Total Protein 7.1 g/dL (6.6-8.7)
[2022-07-14 15:18] LABS: Potassium 2.8 mmol/L (3.5-5.1)
[2022-07-16] MEDS: sodium chlor 0.9% + KCl 40 mEq 40 MEQ/1,000 ML BAG 250 MEQ IV (08:20)
[2022-07-16] MEDS: ondansetron 4 MG Tablet PO (10:26)
[2022-07-16 11:57] VITALS: BP 103/66; PULSE 85; TEMP 37.3; O2SAT 98
[2022-07-22 11:29] LABS: Anion Gap 16.7 (5-19); Blood Urea Nitrogen 9 mg/dL (6-20); Calcium 9.7 mg/dL (8.5-10.5); Carbon Dioxide 25 mmol/L (22-29); Chloride 94 mmol/L (98-107); Glomerular Filtration Rate 93.6 mL/min (90-130); Glucose 184 mg/dL (65-115); Magnesium 1.8 mg/dL (1.7-2.3); Osmolality Calculated 279 mOsm/kg (285-295); Sodium 133 mmol/L (136-145)
[2022-07-22 11:39] LABS: Potassium 2.7 mmol/L (3.5-5.1)
[2022-07-23] MEDS: sodium chlor 0.9% + KCl 40 mEq 40 MEQ/1,000 ML BAG 250 MEQ IV (08:01)
[2022-07-30] MEDS: sodium chlor 0.9% + KCl 40 mEq 40 MEQ/1,000 ML BAG 250 MEQ IV (08:31)
[2022-07-30 11:23] VITALS: BP 99/64; PULSE 94; RESP 16; TEMP 37.3; O2SAT 99
[2022-08-06] MEDS: sodium chlor 0.9% + KCl 40 mEq 40 MEQ/1,000 ML BAG 300 MEQ IV (08:18)
== END 2022-08-09 23:59 | disposition home or self-care (01) ==
PROVIDERS: PCP Family Medicine; Visit Provider Internal Medicine Medical Oncology
DX: E87.6 Hypokalemia (principal)
CPT/HCPCS: 36415; 80048; 80053; 83735; 96365; 96366; Q0162

== ENCOUNTER → 2022-08-10 16:48 | Outpatient (BNVA) | payer MEDICAID, SELFPAY | PROVIDERS: Visit Provider Registered Nurse Neonatal Intensive Care | DX: R50.9 Fever, unspecified (principal); J02.9 Acute pharyngitis, unspecified; B34.9 Viral infection, unspecified; N76.0 Acute vaginitis; B96.89 Other specified bacterial agents as the cause of diseases classified elsewhere | CPT/HCPCS: 87070; 87071; 87426; 87880 ==

== ENCOUNTER → 2022-08-20 10:08 | Day surgery (SDC) | payer MEDICAID, SELFPAY ==
[2022-08-20] MEDS: lidocaine 1% 5 ML in potassium chloride premix 100 ML 25 ML IV (10:41)
[2022-08-20 12:51] VITALS: BP 104/63; PULSE 88; RESP 18; TEMP 36.7; O2SAT 99
== END ==
LOC: GILAB 10:09
PROVIDERS: PCP Internal Medicine Medical Oncology; Visit Provider Internal Medicine Hematology & Oncology
DX: E87.6 Hypokalemia (principal)
CPT/HCPCS: 96365; 96366; J3480

== ENCOUNTER 2022-08-27 08:30 | Oncology outpatient (recurring) (ONCR) | payer MEDICAID, SELFPAY ==
[2022-08-12 17:31] LABS: Blood Urea Nitrogen 7 mg/dL (6-20); Calcium 9.4 mg/dL (8.5-10.5); Carbon Dioxide 31 mmol/L (22-29); Chloride 96 mmol/L (98-107); Glomerular Filtration Rate 111.9 mL/min (90-130); Glucose 72 mg/dL (65-115); Magnesium 1.9 mg/dL (1.7-2.3); Osmolality Calculated 279 mOsm/kg (285-295); Sodium 136 mmol/L (136-145)
[2022-08-13] MEDS: sodium chlor 0.9% + KCl 40 mEq 40 MEQ/1,000 ML BAG 250 MEQ IV (08:43)
[2022-08-19 17:31] LABS: Anion Gap 12.9 (5-19); Blood Urea Nitrogen 11 mg/dL (6-20); Calcium 8.7 mg/dL (8.5-10.5); Carbon Dioxide 25 mmol/L (22-29); Chloride 99 mmol/L (98-107); Glomerular Filtration Rate 80.3 mL/min (90-130); Glucose 123 mg/dL (65-115); Osmolality Calculated 279 mOsm/kg (285-295); Sodium 134 mmol/L (136-145)
[2022-08-20 08:45] LABS: Potassium 2.9 mmol/L (3.5-5.1)
--- NOTE | 2022-08-20 08:58 | PC.NURSE ---
Received phone call from lab regarding critical potassium results. Pts potassium level is 2.9. Called pt, pt aware of results. Pt stated she is able to go to GI lab for potassium infusion today if needed. Spoke with Dr. Jasso, states to have pt double potassium amount already taking PO. Spoke with Dr. Reza nurse, Jennifer SOTO. She states she will handle orders and call pt back regarding new orders. She will also speak with Dr. Jasso again to clarify if any further orders are needed. Stephen JEAN
[2022-08-26 17:39] LABS: Anion Gap 13.8 (5-19); Blood Urea Nitrogen 9 mg/dL (6-20); Calcium 9.3 mg/dL (8.5-10.5); Carbon Dioxide 29 mmol/L (22-29); Chloride 97 mmol/L (98-107); Glomerular Filtration Rate 111.9 mL/min (90-130); Glucose 79 mg/dL (65-115); Osmolality Calculated 282 mOsm/kg (285-295); Sodium 137 mmol/L (136-145)
[2022-08-27] MEDS: sodium chlor 0.9% + KCl 40 mEq 40 MEQ/1,000 ML BAG 250 MEQ IV (08:37)
[2022-08-27 09:11] LABS: Potassium 2.8 mmol/L (3.5-5.1)
[2022-08-27 12:15] VITALS: BP 92/60; PULSE 88; RESP 16; TEMP 36.9; O2SAT 99
== END 2022-09-08 23:59 | disposition home or self-care (01) ==
PROVIDERS: PCP Internal Medicine Medical Oncology; Visit Provider Internal Medicine Hematology & Oncology
DX: E87.6 Hypokalemia (principal)
CPT/HCPCS: 80048; 83735; 96365; 96366

== ENCOUNTER 2022-09-06 16:16 | Oncology outpatient (recurring) (ONCR) | payer MEDICAID, SELFPAY ==
[2022-09-06 17:55] LABS: Blood Urea Nitrogen 12 mg/dL (6-20); Calcium 9.5 mg/dL (8.5-10.5); Carbon Dioxide 30 mmol/L (22-29); Chloride 96 mmol/L (98-107); Glomerular Filtration Rate 111.9 mL/min (90-130); Glucose 90 mg/dL (65-115); Osmolality Calculated 279 mOsm/kg (285-295); Sodium 135 mmol/L (136-145)
== END 2022-09-08 23:59 | disposition home or self-care (01) ==
LOC: LAB 16:19 → ONCMED 09-08 07:37
PROVIDERS: PCP Internal Medicine Medical Oncology; Visit Provider Internal Medicine Medical Oncology
DX: E87.6 Hypokalemia (principal)
CPT/HCPCS: 80048; 83735

== ENCOUNTER 2022-10-07 07:42 | Oncology outpatient (recurring) (ONCR) | payer MEDICAID, SELFPAY ==
[2022-09-10] MEDS: sodium chlor 0.9% + KCl 40 mEq 40 MEQ/1,000 ML BAG 150 MEQ IV (08:30)
[2022-09-16 17:38] LABS: Anion Gap 13.9 (5-19); Blood Urea Nitrogen 11 mg/dL (6-20); Calcium 9.2 mg/dL (8.5-10.5); Carbon Dioxide 26 mmol/L (22-29); Chloride 100 mmol/L (98-107); Glomerular Filtration Rate 93.6 mL/min (90-130); Glucose 82 mg/dL (65-115); Osmolality Calculated 282 mOsm/kg (285-295); Sodium 137 mmol/L (136-145)
[2022-09-17] MEDS: sodium chlor 0.9% + KCl 40 mEq 40 MEQ/1,000 ML BAG 250 MEQ IV (08:38)
[2022-09-17 09:15] LABS: Potassium 2.9 mmol/L (3.5-5.1)
[2022-09-21 17:20] LABS: Anion Gap 14.6 (5-19); Blood Urea Nitrogen 4 mg/dL (6-20); Calcium 8.3 mg/dL (8.5-10.5); Carbon Dioxide 29 mmol/L (22-29); Chloride 92 mmol/L (98-107); Glucose 105 mg/dL (65-115); Osmolality Calculated 273 mOsm/kg (285-295); Sodium 133 mmol/L (136-145)
[2022-09-22 09:09] LABS: Potassium 2.6 mmol/L (3.5-5.1)
[2022-09-22 09:33] LABS: Glomerular Filtration Rate 93.6 mL/min (90-130)
[2022-09-22] MEDS: sodium chlor 0.9% + KCl 40 mEq 40 MEQ/1,000 ML BAG 250 MEQ IV (12:00)
[2022-09-22 15:03] VITALS: BP 100/62; PULSE 99; TEMP 36.7; O2SAT 99
[2022-10-07 09:04] LABS: Anion Gap 13.5 (5-19); Blood Urea Nitrogen 8 mg/dL (6-20); Calcium 9.4 mg/dL (8.5-10.5); Carbon Dioxide 24 mmol/L (22-29); Chloride 104 mmol/L (98-107); Glomerular Filtration Rate 111.9 mL/min (90-130); Glucose 90 mg/dL (65-115); Osmolality Calculated 284 mOsm/kg (285-295); Potassium 3.5 mmol/L (3.5-5.1); Sodium 138 mmol/L (136-145)
== END 2022-10-09 23:59 | disposition home or self-care (01) ==
PROVIDERS: PCP Internal Medicine Medical Oncology; Visit Provider Internal Medicine Medical Oncology
DX: E87.6 Hypokalemia
CPT/HCPCS: 36415; 80048; 96365; 96366

== ENCOUNTER 2022-10-15 14:52 | Emergency (ER) | payer MEDICAID, SELFPAY ==
[2022-10-15] VITALS (9 sets, daily range): BP systolic 123–137; BP diastolic 96–116; PULSE 93–150; RESP 14–20; TEMP 37.5; O2SAT 95–99; BMI 23.6
--- NOTE | 2022-10-15 15:39 | W.ED.BACK ---
Documented by User: Manjinder Stallworth DO 10/25/22 07:31 HPI - Back Pain/Injury General: Chief Complaint: Back Pain/Injury Stated Complaint: back pain Time Seen by Provider: 10/15/22 15:22 Source: patient Mode of arrival: ambulatory History of Present Illness: 36-year-old female presents to the emergency room with complaints o Low back pain. She states she has a palpable nodule back there. She is also complaining of bilateral arm tingling. This all began just in the last couple of hours. She has a history of sinus tachycardia and hypokalemia she has had thorough work-ups for with no significant finding. MD elicited complaint: back pain Onset (ago): hour(s) Timing: intermittent Severity: moderate Quality: sharp Location: lumbar spine Radiation: none Exacerbating factors: none Relieving factors: none Associated symptoms: Reports nausea; Deny abdominal pain, arthralgias, chills, change in bowel habits, difficulty walking, dysuria, fatigue, fecal incontinence, fever(s), hematuria, myalgias, numbness, syncope, tingling/numbness/burning, urinary frequency, urinary urgency, vomiting or weakness Review of Systems Const: Denies: fever(s), chills or fatigue ENMT: Denies: throat pain, ear or mastoid pain, nasal discharge or nasal congestion Card: Denies: chest pain, palpitations, irregular heart rhythm, edema, swelling of feet/ankles or syncope Resp: Denies: dyspnea, productive cough or non-productive cough GI: Reports: nausea; Denies: abdominal pain, vomiting, fecal incontinence or change in bowel habits : Denies: flank pain, difficulty voiding, dysuria, urinary frequency, urinary urgency or hematuria Musc: Reports: back pain Skin/Breast: Denies: rash or pruritus Neuro: Denies: difficulty walking PFSH ED PFSH: Medical History Chronic migraine Generalized anxiety disorder History of major depression History of supraventricular tachycardia History of syncope She has history of syncope in association with tachycardia Psychiatric care Surgical History History of cholecystectomy (11/2020) History of hysterectomy (08/2018) Without oophorectomy History of laparoscopy (2003) to diagnose endometriosis Family History Mother Chronic kidney disease (CKD) Other CAD (coronary artery disease) Cancer Clotting disorder Diabetes Hyperlipidemia Hypertension Lung disease Denies family history of Dementia Psychiatric illness Suicide Anesthesia complication Bleeding disorder Stroke Social History Smoking and tobacco status: never smoked Alcohol intake: never History of recent travel: No Physical Exam Const: COMMON NORMALS: no acute distress GENERAL APPEARANCE: cooperative and comfortable ORIENTATION/CONSCIOUSNESS: Yes awake, Yes oriented to person, Yes oriented to place and Yes oriented to time HENMT: COMMON NORMALS: normocephalic, atraumatic and hearing grossly normal bilaterally HEAD & SCALP: normocephalic and atraumatic Resp: COMMON NORMALS: normal respiratory effort, No retractions, No use of accessory muscles and clear to auscultation bilaterally AUSCULTATION: clear to auscultation bilaterally Cardio: COMMON NORMALS: regular rate, regular rhythm and No murmurs present (Cardio) RATE: regular rate RHYTHM: regular rhythm GI: COMMON NORMALS: Soft to palpation and No hepatosplenomegaly present AUSCULTATION: Yes normoactive bowel sounds PALPATION: Yes Soft to palpation, No Tenderness to palpation present (GI), No Guarding due to palpation present (GI) and Yes No hepatosplenomegaly present Back/Pelvis: OTHER: Palpable lipoma of the low back over the superior aspect of the SI joint on the left. Dorsum plantar flexion 5 5 sensation lower extremities normal straight leg raising negative deep tendon reflexes +2/4 at the Achilles and patellar tendons Extremity: COMMON NORMALS: normal to inspection, capillary refill normal, no clubbing, cyanosis or edema, no calf tenderness and no pedal edema Neuro: SENSORIUM/ORIENTATION: Yes oriented to person, Yes oriented to place and Yes oriented to time Skin: COMMON NORMALS: no rashes or lesions noted GENERAL SKIN EXAM: no rashes or lesions noted Course Vital Signs: Vital signs: Vital Signs Temperature 99.5 F 10/15/22 15:01 Pulse Rate 98 10/15/22 18:30 Respiratory Rate 17 10/15/22 18:30 Blood Pressure 124/96 10/15/22 15:30 Pulse Oximetry 99 10/15/22 18:30 Oxygen Delivery Me thod 10/15/22 15:01 MDM - Back Pain/Injury Medical Decision Making Patient seen for complaint of back discomfort. She has a palpable lipoma in the lower back. She also has some tachycardia. Tachycardia has been a chronic longstanding issue for her and it did improve while she was here. Recommend that she follow-up with your primary care doctor or with general surgery to have the lipoma excised if it persists. Patient visit completed by Dr. Stallworth. See his note for discharge and follow-up instructions. Medical Records I reviewed the patient's medical records. Labs I reviewed the patient's lab results. 10/15/22 15:40 10/15/22 15:40 Radiology Impressions Soft Tissue Ultrasound 10/15/22 15:43 IMPRESSION: Superficial soft tissue lesion, possible lipoma. Clinical correlation is recommended. Laboratory Results WBC 9.1 10^3/uL (4.0-10.0) 10/15/22 15:40 RBC 5.00 10^6/uL (4.1-5.3) 10/15/22 15:40 Hgb 14.4 g/dL (11.5-15.3) 10/15/22 15:40 Hct 41.3 % (37.0-47.0) 10/15/22 15:40 MCV 82.6 fl (81-99) 10/15/22 15:40 MCH 28.8 pg (28.0-34.0) 10/15/22 15:40 MCHC 34.9 g/dL (30.0-36.0) 10/15/22 15:40 RDW 13.0 % (12.1-15.1) 10/15/22 15:40 Plt Count 350 10^3/cmm (130-400) 10/15/22 15:40 MPV 9.6 fL (7.4-10.4) 10/15/22 15:40 Neut % (Auto) 61.6 % 10/15/22 15:40 Lymph % (Auto) 29.1 % 10/15/22 15:40 Nance % (Auto) 6.9 % 10/15/22 15:40 Eos % (Auto) 1.5 % 10/15/22 15:40 Baso % (Auto) 0.8 % 10/15/22 15:40 Neut # (Auto) 5.62 10^3/uL (1.8-7.7) 10/15/22 15:40 Lymph # (Auto) 2.7 10^3/uL (0.8-4.8) 10/15/22 15:40 Nance # (Auto) 0.6 10^3/uL (0.2-0.9) 10/15/22 15:40 Eos # (Auto) 0.1 10^3/uL (0.0-0.8) 10/15/22 15:40 Baso # (Auto) 0.1 10^3/uL (0.0-0.1) 10/15/22 15:40 Nucleated RBC % (auto) 0 % 10/15/22 15:40 Nucleated RBCs # 0.0 /100WBC 10/15/22 15:40 Sodium 134 mmol/L (136-145) L 10/15/22 15:40 Potassium 3.1 mmol/L (3.5-5.1) L 10/15/22 15:40 Chloride 98 mmol/L (98-107) 10/15/22 15:40 Carbon Dioxide 23 mmol/L (22-29) 10/15/22 15:40 Anion Gap 16.1 (5-19) 10/15/22 15:40 BUN 9 mg/dL (6-20) 10/15/22 15:40 Creatinine 0.7 mg/dL (0.5-0.9) 10/15/22 15:40 GFR Calculation 93.6 mL/min (90-130) 10/15/22 15:40 Glucose 89 mg/dL (65-115) 10/15/22 15:40 Calculated Osmolality 276 mOsm/kg (285-295) L 10/15/22 15:40 Calcium 9.2 mg/dL (8.5-10.5) 10/15/22 15:40 Total Bilirubin 0.6 mg/dL (0.15-1.2) 10/15/22 15:40 AST 40 U/L (0-32) H 10/15/22 15:40 ALT 38 U/L (0-33) H 10/15/22 15:40 Alkaline Phosphatase 69 U/L (35-105) 10/15/22 15:40 Total Protein 7.6 g/dL (6.6-8.7) 10/15/22 15:40 Albumin 4.6 g/dL (3.5-5.2) 10/15/22 15:40 Globulin 3.0 g/dL (1.3-4.6) 10/15/22 15:40 Urine Color Yellow (Yellow) 10/15/22 16:40 Urine Appearance Clear (CLEAR) 10/15/22 16:40 Urine pH 5 (5-7) 10/15/22 16:40 Ur Specific [place] 1.015 (1.005-1.030) 10/15/22 16:40 Urine Protein Neg (Negative) 10/15/22 16:40 Urine Glucose (UA) Norm (Normal) 10/15/22 16:40 Urine Ketones Negative (Negative) 10/15/22 16:40 Urine Blood Neg (Negative) 10/15/22 16:40 Urine Nitrate Negative (Negative) 10/15/22 16:40 Urine Bilirubin Neg (Negative) 10/15/22 16:40 Urine Urobilinogen Norm mg/dL (Negative) 10/15/22 16:40 Ur Leukocyte Esterase Negative (Negative) 10/15/22 16:40 Discharge Plan Discharge Patient Disposition: Home Clinical Impression: Lipoma, Tachycardia Condition: Stable Prescriptions: New tramadol 50 mg tablet 50 mg PO Q6H PRN (Reason: pain) Qty: 14 0RF No Action Eliquis 5 mg tablet 5 mg PO BID Qty: 60 0RF potassium chloride 20 mEq tablet extended release 40 meq PO .5xd Qty: 300 0RF clonazepam 0.5 mg tablet 0.5 mg PO TID PRN (Reason: anxiety) Qty: 90 1RF Discharge Orders: Discharge ED (Routine); Ordered 10/15/22 Ordered By: Manjinder Stallworth Referrals: Taj Veloz MD [Primary Care Provider] - Discharge Diet: Usual diet Discharge Activity: Increase activity as tolerated Patient Instructions: Opioid Safety, Pain Management Activity Restrictions/Additional Instructions: You are seen today for pain over the left SI joint. There is a palpable lipoma where the worst of your discomfort is at. Ultrasound identified it as a sole lipoma. You can use the above pain medications as needed. If you wish you can follow-up with general surgery to have it excised. Coding Level of Care Code ED Command And Control Systems Integrator for Chg Fwd Documented by User: Erasmo Eller DO 10/16/22 05:36 HPI - Back Pain/Injury General: Chief Complaint: Back Pain/Injury Stated Complaint: back pain Time Seen by Provider: 10/15/22 15:22 PFSH ED PFSH: Medical History Chronic migraine Generalized anxiety disorder History of major depression History of supraventricular tachycardia History of syncope She has history of syncope in association with tachycardia Psychiatric care Surgical History History of cholecystectomy (11/2020) History of hysterectomy (08/2018) Without oophorectomy History of laparoscopy (2003) to diagnose endometriosis Family History Mother Chronic kidney disease (CKD) Other CAD (coronary artery disease) Cancer Clotting disorder Diabetes Hyperlipidemia Hypertension Lung disease Denies family history of Dementia Psychiatric illness Suicide Anesthesia complication Bleeding disorder Stroke Social History Smoking and tobacco status: never smoked Alcohol intake: never History of recent travel: No Course Vital Signs: Vital signs: Vital Signs Temperature 99.5 F 10/15/22 15:01 Pulse Rate 98 10/15/22 18:30 Respiratory Rate 17 10/15/22 18:30 Blood Pressure 124/96 10/15/22 15:30 Pulse Oximetry 99 10/15/22 18:30 Oxygen Delivery Me thod 10/15/22 15:01 MDM - Back Pain/Injury Medical Decision Making Patient visit completed by Dr. Stallworth. See his note for discharge and follow-up instructions. Labs 10/15/22 15:40 10/15/22 15:40 Radiology Impressions Soft Tissue Ultrasound 10/15/22 15:43 IMPRESSION: Superficial soft tissue lesion, possible lipoma. Clinical correlation is recommended. Laboratory Results WBC 9.1 10^3/uL (4.0-10.0) 10/15/22 15:40 RBC 5.00 10^6/uL (4.1-5.3) 10/15/22 15:40 Hgb 14.4 g/dL (11.5-15.3) 10/15/22 15:40 Hct 41.3 % (37.0-47.0) 10/15/22 15:40 MCV 82.6 fl (81-99) 10/15/22 15:40 MCH 28.8 pg (28.0-34.0) 10/15/22 15:40 MCHC 34.9 g/dL (30.0-36.0) 10/15/22 15:40 RDW 13.0 % (12.1-15.1) 10/15/22 15:40 Plt Count 350 10^3/cmm (130-400) 10/15/22 15:40 MPV 9.6 fL (7.4-10.4) 10/15/22 15:40 Neut % (Auto) 61.6 % 10/15/22 15:40 Lymph % (Auto) 29.1 % 10/15/22 15:40 Nance % (Auto) 6.9 % 10/15/22 15:40 Eos % (Auto) 1.5 % 10/15/22 15:40 Baso % (Auto) 0.8 % 10/15/22 15:40 Neut # (Auto) 5.62 10^3/uL (1.8-7.7) 10/15/22 15:40 Lymph # (Auto) 2.7 10^3/uL (0.8-4.8) 10/15/22 15:40 Nance # (Auto) 0.6 10^3/uL (0.2-0.9) 10/15/22 15:40 Eos # (Auto) 0.1 10^3/uL (0.0-0.8) 10/15/22 15:40 Baso # (Auto) 0.1 10^3/uL (0.0-0.1) 10/15/22 15:40 Nucleated RBC % (auto) 0 % 10/15/22 15:40 Nucleated RBCs # 0.0 /100WBC 10/15/22 15:40 Sodium 134 mmol/L (136-145) L 10/15/22 15:40 Potassium 3.1 mmol/L (3.5-5.1) L 10/15/22 15:40 Chloride 98 mmol/L (98-107) 10/15/22 15:40 Carbon Dioxide 23 mmol/L (22-29) 10/15/22 15:40 Anion Gap 16.1 (5-19) 10/15/22 15:40 BUN 9 mg/dL (6-20) 10/15/22 15:40 Creatinine 0.7 mg/dL (0.5-0.9) 10/15/22 15:40 GFR Calculation 93.6 mL/min (90-130) 10/15/22 15:40 Glucose 89 mg/dL (65-115) 10/15/22 15:40 Calculated Osmolality 276 mOsm/kg (285-295) L 10/15/22 15:40 Calcium 9.2 mg/dL (8.5-10.5) 10/15/22 15:40 Total Bilirubin 0.6 mg/dL (0.15-1.2) 10/15/22 15:40 AST 40 U/L (0-32) H 10/15/22 15:40 ALT 38 U/L (0-33) H 10/15/22 15:40 Alkaline Phosphatase 69 U/L (35-105) 10/15/22 15:40 Total Protein 7.6 g/dL (6.6-8.7) 10/15/22 15:40 Albumin 4.6 g/dL (3.5-5.2) 10/15/22 15:40 Globulin 3.0 g/dL (1.3-4.6) 10/15/22 15:40 Urine Color Yellow (Yellow) 10/15/22 16:40 Urine Appearance Clear (CLEAR) 10/15/22 16:40 Urine pH 5 (5-7) 10/15/22 16:40 Ur Specific [place] 1.015 (1.005-1.030) 10/15/22 16:40 Urine Protein Neg (Negative) 10/15/22 16:40 Urine Glucose (UA) Norm (Normal) 10/15/22 16:40 Urine Ketones Negative (Negative) 10/15/22 16:40 Urine Blood Neg (Negative) 10/15/22 16:40 Urine Nitrate Negative (Negative) 10/15/22 16:40 Urine Bilirubin Neg (Negative) 10/15/22 16:40 Urine Urobilinogen Norm mg/dL (Negative) 10/15/22 16:40 Ur Leukocyte Esterase Negative (Negative) 10/15/22 16:40 Discharge Plan Discharge Patient Disposition: Home Clinical Impression: Lipoma, Tachycardia Condition: Stable Prescriptions: New tramadol 50 mg tablet 50 mg PO Q6H PRN (Reason: pain) Qty: 14 0RF No Action Eliquis 5 mg tablet 5 mg PO BID Qty: 60 0RF potassium chloride 20 mEq tablet extended release 40 meq PO .5xd Qty: 300 0RF clonazepam 0.5 mg tablet 0.5 mg PO TID PRN (Reason: anxiety) Qty: 90 1RF Discharge Orders: Discharge ED (Routine); Ordered 10/15/22 Ordered By: Manjinder Stallworth Referrals: Taj Veloz MD [Primary Care Provider] - Discharge Diet: Usual diet Discharge Activity: Increase activity as tolerated Patient Instructions: Opioid Safety, Pain Management Activity Restrictions/Additional Instructions: You are seen today for pain over the left SI joint. There is a palpable lipoma where the worst of your discomfort is at. Ultrasound identified it as a sole lipoma. You can use the above pain medications as needed. If you wish you can follow-up with general surgery to have it excised. Coding Level of Care Code ED Command And Control Systems Integrator for Pravin Nunes
--- NOTE | 2022-10-15 15:43 | USR_ITS ---
PROCEDURE INFORMATION: Exam: US Pelvis Limited, Transabdominal, Soft tissue Exam date and time: 10/15/2022 3:53 PM Age: 36 years old Clinical indication: Symptoms: N/a; Additional info: Nodule (lipoma) overlying L sacral ali superiorly TECHNIQUE: Imaging protocol: Real-time transabdominal pelvic ultrasound with image documentation. Limited exam. Exam focused on the soft tissue. COMPARISON: CT angio chest w abd pel w con 07/05/2022 1:48 PM FINDINGS: Soft tissues: Posterior left superior gluteal/iliac region ovoid subcutaneous relatively homogeneous mildly echogenic nonshadowing noncalcified ellipsoid non-hypervascular 2.4 x 0.9 x 2.2 cm lesion. No focal fluid collection. US/US soft tissue/extremity [id number] IMPRESSION: Superficial soft tissue lesion, possible lipoma. Clinical correlation is recommended.
[2022-10-15 15:52] LABS: Basophils # 0.1 10^3/uL (0.0-0.1); Basophils % 0.8 %; Eosinophils # 0.1 10^3/uL (0.0-0.8); Eosinophils % 1.5 %; Hematocrit 41.3 % (37.0-47.0); Hemoglobin 14.4 g/dL (11.5-15.3); Lymphocytes # 2.7 10^3/uL (0.8-4.8); Lymphocytes % 29.1 %; Mean Corpuscular HGB Conc 34.9 g/dL (30.0-36.0); Mean Corpuscular Hemoglobin 28.8 pg (28.0-34.0); Mean Corpuscular Volume 82.6 fl (81-99); Mean Platelet Volume 9.6 fL (7.4-10.4); Monocytes # 0.6 10^3/uL (0.2-0.9); Monocytes % 6.9 %; Neutrophils # 5.62 10^3/uL (1.8-7.7); Neutrophils % 61.6 %; Nucleated Red Blood Cells % 0 %; Platelet Count 350 10^3/cmm (130-400); White Blood Count 9.1 10^3/uL (4.0-10.0)
[2022-10-15] MEDS: ondansetron 2 mg/ML SDV 2 mL 4 MG IVP (16:17)
[2022-10-15] MEDS: morphine 4 mg/mL SDV 1 mL IVP (16:17)
[2022-10-15 16:18] LABS: Alanine Aminotransferase 38 U/L (0-33); Albumin Level 4.6 g/dL (3.5-5.2); Alkaline Phosphatase 69 U/L (35-105); Aspartate Amino Transferase 40 U/L (0-32); Blood Urea Nitrogen 9 mg/dL (6-20); Calcium 9.2 mg/dL (8.5-10.5); Carbon Dioxide 23 mmol/L (22-29); Chloride 98 mmol/L (98-107); Glomerular Filtration Rate 93.6 mL/min (90-130); Glucose 89 mg/dL (65-115); Osmolality Calculated 276 mOsm/kg (285-295); Sodium 134 mmol/L (136-145); Total Bilirubin 0.6 mg/dL (0.15-1.2); Total Protein 7.6 g/dL (6.6-8.7)
[2022-10-15 16:20] LABS: Anion Gap 16.1 (5-19); Potassium 3.1 mmol/L (3.5-5.1)
--- NOTE | 2022-10-15 16:32 | ECG_ITS ---
[facility] Test Date: 2022-10-15 Pat Name: Anayeli Herrera Department: Room: Gender: Female Energy Consultant: : 1985 Requested By: Manjinder Burris Order Number: [id number] Sharri MD: Mary Recinos M.D. Measurements Intervals Stuart Rate: 94 P: 147 FL: 175 QRS: 132 QRSD: 78 T: 136 QT: 357 QTc: 448 Interpretive Statements SINUS RHYTHM ARM LEADS REVERSED [INVERTED P AND QRS IN I] Compared to ECG 06/25/2022 17:34:54 No significant changes Electronically Signed On 10-15-2022 16:45:27 SALES SERVICE COORDINATOR by Mary Recinos M.D. [id number]
[2022-10-15 17:23] LABS: Add Urine Microscopic? NO; Charge for UA Resulting for Rev
[2022-10-15 17:33] LABS: Bilirubin Urine Neg (Negative); Blood Urine Neg (Negative); Glucose Urine UA Norm (Normal); Ketones Urine Negative (Negative); Leukocyte Esterase Urine Negative (Negative); Nitrate Urine Negative (Negative); Protein Urine Neg (Negative); Specific Gravity, Urine 1.015 (1.005-1.030); Urine Appearance Clear (CLEAR); Urine Color Yellow (Yellow); Urobilinogen Urine Norm (Negative); pH Urine 5 (5-7)
== END 2022-10-15 18:30 | disposition home or self-care (01) ==
PROVIDERS: Nurse Practitioner Family; Emergency Provider Emergency Medicine; PCP Internal Medicine Medical Oncology
DX: D17.9 Benign lipomatous neoplasm, unspecified (principal); R00.0 Tachycardia, unspecified; Z79.01 Long term (current) use of anticoagulants
CPT/HCPCS: 76882; 80053; 81003; 85025; 93005; 96374; 96375; 99285; J2270; J2405

== ENCOUNTER 2022-10-25 10:06 | Outpatient (CLI) | payer MEDICAID, SELFPAY ==
[2022-10-25 11:16] LABS: Anion Gap 12.5 (5-19); Blood Urea Nitrogen 6 mg/dL (6-20); Calcium 9.7 mg/dL (8.5-10.5); Carbon Dioxide 31 mmol/L (22-29); Chloride 101 mmol/L (98-107); Glomerular Filtration Rate 93.6 mL/min (90-130); Glucose 91 mg/dL (65-115); Osmolality Calculated 289 mOsm/kg (285-295); Potassium 3.5 mmol/L (3.5-5.1); Sodium 141 mmol/L (136-145)
== END 2022-10-25 10:07 | disposition home or self-care (01) ==
LOC: LAB 10:09
PROVIDERS: PCP Internal Medicine Medical Oncology; Visit Provider Internal Medicine Medical Oncology
DX: E87.6 Hypokalemia (principal)
CPT/HCPCS: 36415; 80048

== ENCOUNTER 2022-11-22 07:17 | Oncology outpatient (recurring) (ONCR) | payer MEDICAID, SELFPAY ==
[2022-11-19 12:51] LABS: Anion Gap 18.7 (5-19); Blood Urea Nitrogen 7 mg/dL (6-20); Calcium 9.4 mg/dL (8.5-10.5); Carbon Dioxide 29 mmol/L (22-29); Chloride 91 mmol/L (98-107); Glomerular Filtration Rate 93.6 mL/min (90-130); Glucose 82 mg/dL (65-115); Osmolality Calculated 279 mOsm/kg (285-295); Sodium 136 mmol/L (136-145)
[2022-11-19 13:05] LABS: Potassium 2.7 mmol/L (3.5-5.1)
[2022-11-22 08:21] LABS: Blood Urea Nitrogen 4 mg/dL (6-20); Calcium 9.6 mg/dL (8.5-10.5); Carbon Dioxide 29 mmol/L (22-29); Chloride 95 mmol/L (98-107); Glomerular Filtration Rate 80.3 mL/min (90-130); Glucose 96 mg/dL (65-115); Osmolality Calculated 281 mOsm/kg (285-295); Sodium 137 mmol/L (136-145)
[2022-11-22 08:24] LABS: Anion Gap 16.2 (5-19); Potassium 3.2 mmol/L (3.5-5.1)
== END 2022-12-07 23:59 | disposition home or self-care (01) ==
PROVIDERS: Nurse Practitioner; PCP Internal Medicine Medical Oncology; Visit Provider Internal Medicine Medical Oncology
DX: E87.6 Hypokalemia
CPT/HCPCS: 36415; 80048

== ENCOUNTER → 2022-12-01 13:14 | Outpatient (BNVA) | payer MEDICAID, SELFPAY | PROVIDERS: PCP Family Medicine; Visit Provider Surgery | DX: R22.2 Localized swelling, mass and lump, trunk (principal) | CPT/HCPCS: 99203 ==

== ENCOUNTER 2022-12-29 10:00 | Oncology outpatient (recurring) (ONCR) | payer MEDICAID, SELFPAY ==
[2022-12-27 14:19] LABS: Basophils # 0.1 10^3/uL (0.0-0.1); Basophils % 0.7 %; Eosinophils # 0.1 10^3/uL (0.0-0.8); Eosinophils % 1.7 %; Hematocrit 46.1 % (37.0-47.0); Hemoglobin 16.1 g/dL (11.5-15.3); Lymphocytes # 1.8 10^3/uL (0.8-4.8); Mean Corpuscular HGB Conc 34.9 g/dL (30.0-36.0); Mean Corpuscular Volume 83.1 fl (81-99); Mean Platelet Volume 9.6 fL (7.4-10.4); Monocytes # 0.5 10^3/uL (0.2-0.9); Monocytes % 6.3 %; Neutrophils # 4.99 10^3/uL (1.8-7.7); Neutrophils % 67.2 %; Nucleated Red Blood Cells % 0 %; Platelet Count 361 10^3/cmm (130-400); Red Blood Count 5.55 10^6/uL (4.1-5.3); Red Cell Distribution Width 12.3 % (12.1-15.1); White Blood Count 7.4 10^3/uL (4.0-10.0)
[2022-12-27 16:28] LABS: Alanine Aminotransferase 22 U/L (0-33); Albumin Level 4.8 g/dL (3.5-5.2); Alkaline Phosphatase 46 U/L (35-105); Anion Gap 19.1 (5-19); Aspartate Amino Transferase 33 U/L (0-32); Blood Urea Nitrogen 5 mg/dL (6-20); Calcium 9.3 mg/dL (8.5-10.5); Carbon Dioxide 26 mmol/L (22-29); Chloride 93 mmol/L (98-107); Ferritin 43 ng/mL (15-150); Globulin 2.9 g/dL (1.3-4.6); Glomerular Filtration Rate 111.3 mL/min (90-130); Glucose 78 mg/dL (65-115); Iron 83 ug/dL (37-145); Magnesium 1.9 mg/dL (1.7-2.3); Osmolality Calculated 276 mOsm/kg (285-295); Percent Saturation 21.8 % (20-50); Potassium 3.1 mmol/L (3.5-5.1); Sodium 135 mmol/L (136-145); Thyroid Stimulating Hormone 1.45 uIU/mL (0.27-4.20); Total Bilirubin 0.7 mg/dL (0.15-1.2); Total Iron Binding Capacity 379 mcg/dl; Total Protein 7.7 g/dL (6.6-8.7); Unsaturated Iron Binding 296 ug/dL (112-347)
[2022-12-29] MEDS: sodium chlor 0.9% + KCl 20 mEq 20 MEQ/1,000 ML BAG 500 MEQ IV (10:15)
[2022-12-29 13:17] VITALS: BP 102/74; PULSE 88; RESP 18; TEMP 36.6; O2SAT 98
== END 2023-01-07 23:59 | disposition home or self-care (01) ==
PROVIDERS: PCP Family Medicine; Visit Provider Nurse Practitioner
DX: E87.6 Hypokalemia (principal); Z79.899 Other long term (current) drug therapy
CPT/HCPCS: 80053; 82728; 83540; 83550; 83735; 84443; 85025; 96365; 96366; J3480

== ENCOUNTER 2023-05-16 14:27 | Oncology outpatient (recurring) (ONCR) | payer MEDICAID, SELFPAY ==
[2023-05-19 18:16] LABS: PROTHROMBIN (FACTOR II) 20210G POSITIVE
== END 2023-06-09 23:59 | disposition home or self-care (01) ==
LOC: ONCMED 14:27
PROVIDERS: Internal Medicine Medical Oncology; PCP Family Medicine; Visit Provider Nurse Practitioner
DX: I26.99 Other pulmonary embolism without acute cor pulmonale (principal)
CPT/HCPCS: 36415; 85210

== ENCOUNTER 2023-07-07 10:21 | Oncology outpatient (recurring) (ONCR) | payer MEDICAID, SELFPAY ==
[2023-07-07 11:30] VITALS: BP 115/81; PULSE 102; RESP 16; TEMP 37.1; O2SAT 97
[2023-07-07 11:36] LABS: Basophils # 0.1 10^3/uL (0.0-0.1); Basophils % 1.1 %; Eosinophils # 0.1 10^3/uL (0.0-0.8); Eosinophils % 1.2 %; Hematocrit 42.5 % (36-47); Lymphocytes # 1.9 10^3/uL (0.8-4.8); Lymphocytes % 26.3 %; Mean Corpuscular HGB Conc 36.7 g/dL (30-55); Mean Corpuscular Hemoglobin 30.5 pg (27-33); Mean Corpuscular Volume 83.2 fl (85-98); Mean Platelet Volume 9.1 fL (7.4-10.4); Monocytes # 0.6 10^3/uL (0.2-0.9); Monocytes % 8.8 %; Neutrophils # 4.56 10^3/uL (1.8-7.7); Neutrophils % 62.5 %; Nucleated Red Blood Cells % 0 %; Platelet Count 368 10^3/cmm (157-399); Red Blood Count 5.11 10^6/uL (3.85-5.65); Red Cell Distribution Width 11.8 % (12.1-15.1)
[2023-07-07 12:02] LABS: Alanine Aminotransferase 61 U/L (0-33); Albumin Level 5.1 g/dL (3.5-5.2); Alkaline Phosphatase 53 U/L (35-105); Anion Gap 23.3 (5-19); Aspartate Amino Transferase 81 U/L (0-32); Blood Urea Nitrogen 6 mg/dL (6-20); Calcium 9.8 mg/dL (8.5-10.5); Carbon Dioxide 26 mmol/L (22-29); Chloride 90 mmol/L (98-107); Globulin 2.7 g/dL (1.3-4.6); Glomerular Filtration Rate 111.3 mL/min (90-130); Glucose 101 mg/dL (65-115); Osmolality Calculated 280 mOsm/kg (285-295); Potassium 3.3 mmol/L (3.5-5.1); Sodium 136 mmol/L (136-145); Total Protein 7.8 g/dL (6.6-8.7)
== END 2023-07-09 23:59 | disposition home or self-care (01) ==
PROVIDERS: Internal Medicine Medical Oncology; PCP Family Medicine; Visit Provider Nurse Practitioner
DX: E87.6 Hypokalemia (principal); Z53.9 Procedure and treatment not carried out, unspecified reason
CPT/HCPCS: 36415; 80053; 85025

== ENCOUNTER 2023-08-31 08:50 | Oncology outpatient (recurring) (ONCR) | payer MEDICAID, SELFPAY ==
[2023-08-31 09:11] VITALS: BP 101/73; PULSE 105; RESP 16; TEMP 37.1; O2SAT 97
[2023-08-31 09:27] LABS: Basophils # 0.1 10^3/uL (0.0-0.1); Basophils % 0.8 %; Eosinophils # 0.3 10^3/uL (0.0-0.8); Eosinophils % 4.4 %; Hematocrit 42.7 % (36-47); Lymphocytes # 2.2 10^3/uL (0.8-4.8); Lymphocytes % 29.7 %; Mean Corpuscular HGB Conc 35.1 g/dL (30-55); Mean Corpuscular Hemoglobin 30.7 pg (27-33); Mean Corpuscular Volume 87.5 fl (85-98); Mean Platelet Volume 9.4 fL (7.4-10.4); Monocytes # 0.5 10^3/uL (0.2-0.9); Monocytes % 6.5 %; Neutrophils # 4.25 10^3/uL (1.8-7.7); Neutrophils % 58.3 %; Nucleated Red Blood Cells % 0 %; Platelet Count 306 10^3/cmm (157-399); Red Blood Count 4.88 10^6/uL (3.85-5.65); Red Cell Distribution Width 12.1 % (12.1-15.1); White Blood Count 7.28 10^3/uL (3.29-11.43)
[2023-08-31 09:48] LABS: Alanine Aminotransferase 30 U/L (0-33); Albumin Level 4.7 g/dL (3.5-5.2); Alkaline Phosphatase 52 U/L (35-105); Anion Gap 14.7 (5-19); Aspartate Amino Transferase 33 U/L (0-32); Blood Urea Nitrogen 7 mg/dL (6-20); Calcium 9.9 mg/dL (8.5-10.5); Carbon Dioxide 28 mmol/L (22-29); Chloride 98 mmol/L (98-107); Globulin 2.5 g/dL (1.3-4.6); Glomerular Filtration Rate 93.2 mL/min (90-130); Glucose 93 mg/dL (65-115); Osmolality Calculated 282 mOsm/kg (285-295); Potassium 3.7 mmol/L (3.5-5.1); Sodium 137 mmol/L (136-145); Total Bilirubin 0.6 mg/dL (0.15-1.2); Total Protein 7.2 g/dL (6.6-8.7)
[2023-08-31 09:53] LABS: D Dimer <= 0.27 ug/mLFEU (0-0.59)
== END 2023-09-08 23:59 | disposition home or self-care (01) ==
PROVIDERS: Internal Medicine Medical Oncology; PCP Family Medicine; Visit Provider Nurse Practitioner
DX: E87.6 Hypokalemia; I95.1 Orthostatic hypotension; Z79.01 Long term (current) use of anticoagulants; Z79.899 Other long term (current) drug therapy; R06.00 Dyspnea, unspecified; R00.0 Tachycardia, unspecified; R59.1 Generalized enlarged lymph nodes; R07.9 Chest pain, unspecified
CPT/HCPCS: 36415; 80053; 85025; 85378

== ENCOUNTER 2023-08-31 12:07 | Outpatient (CLI) | payer MEDICAID, SELFPAY ==
--- NOTE | 2023-08-31 12:00 | CT_ITS ---
WS: [id number] CT CHEST ANGIOGRAPHY WITH REFORMATS HISTORY: compare to previous TECHNIQUE: Contiguous axial images are obtained through the chest during arterial injection of intrav enous contrast. Images are reconstructed to evaluate the pulmonary arteries. MIP imaging also reviewe d. All CT scans at [facility] use at least one of these dose optimization techniques: automat ed exposure control; mA and/or kV adjustment per patient size (includes targeted exams where dose is matched to clinical indication); or iterative reconstruction. CONTRAST: Omnipaque 350; 100 mL IV. DLP: 165.17 mGy.cm COMPARISON: 07/05/2022 There are opacification of the pulmonary artery. Normal sized pulmonary artery. No filling defects or pulmonary embolism. Normal size thoracic aorta. No new or enlarging pulmonary nodules. No pneumonia. Mildly prominent soft tissue in the anterior mediastinum is probably residual thymic tissue due to it s configuration. Similar to the prior study. There are few cysts indeterminate hilar lymph nodes haylie uring up to 8 mm. These lymph nodes have decreased in size since the prior study. No adenopathy. Norm al size heart. No pericardial or pleural effusions. Bilateral breast implants. Prior cholecystectomy. No adrenal mass. Mild hepatic steatosis. No destruc tive bone lesions. IMPRESSION: 1. No pulmonary embolism. 2. Small previously described mediastinal and hilar lymph nodes have decreased in size. No adenopathy . 3. No pneumonia.
[2023-08-31] MEDS: iohexol 350 mg/mL 500 mL Btl (per mL) IV (12:43)
== END 2023-08-31 12:08 | disposition home or self-care (01) ==
LOC: RAD 12:07
PROVIDERS: PCP Family Medicine; Visit Provider Internal Medicine Medical Oncology
DX: I26.99 Other pulmonary embolism without acute cor pulmonale (principal); R06.02 Shortness of breath; R07.9 Chest pain, unspecified
CPT/HCPCS: 36415; 71275; 80053; 85025; 85378; Q9967

== ENCOUNTER 2023-10-11 06:55 | Oncology outpatient (recurring) (ONCR) | payer MEDICAID, SELFPAY | END 2023-10-11 06:56 | disposition home or self-care (01) | LOC: ONCMED 06:56 | PROVIDERS: PCP Family Medicine; Visit Provider Nurse Practitioner | DX: Z53.9 Procedure and treatment not carried out, unspecified reason (principal) ==

== ENCOUNTER → 2023-10-26 09:00 | Outpatient (BNVA) | payer MEDICAID, SELFPAY | PROVIDERS: PCP Family Medicine; Visit Provider Nurse Practitioner Women's Health | DX: Z11.3 Encounter for screening for infections with a predominantly sexual mode of transmission (principal); N94.9 Unspecified condition associated with female genital organs and menstrual cycle; A60.00 Herpesviral infection of urogenital system, unspecified; A60.04 Herpesviral vulvovaginitis | CPT/HCPCS: 86592; 86803; 87340; 87491; 87529; 87591; 87806 ==

== ENCOUNTER 2024-08-02 08:13 | Outpatient (CLI) | payer MEDICAID, SELFPAY ==
--- NOTE | 2024-08-02 08:17 | MM_ITS ---
WS: [id number] BILATERAL SCREENING DIGITAL BREAST MAMMOGRAPHY WITH BETSY DISPLACEMENT VIEWS. CAD PERFORMED. HISTORY: SCREENING COMPARISON: None available. Bilateral craniocaudal and mediolateral oblique views are performed with tomosynthesis and SM. Betsy displacement views in CC and MLO projection also performed. Breasts composition: There are scattered areas of fibroglandular density. Retroglandular implants are intact. No suspicious mass or calcifications. There are a few benign scat tered calcifications within each breast. MM/MM scr tomosynthesis [id number] IMPRESSION: BI-RADS: 2 - Benign. FOLLOW-UP: 1 Year Follow-up
== END 2024-08-02 08:14 | disposition home or self-care (01) ==
PROVIDERS: PCP Family Medicine; Visit Provider Nurse Practitioner Family
DX: Z12.31 Encounter for screening mammogram for malignant neoplasm of breast (principal); R92.323 Mammographic fibroglandular density, bilateral breasts; R92.1 Mammographic calcification found on diagnostic imaging of breast
CPT/HCPCS: 77063; 77067

== ENCOUNTER 2025-03-21 08:30 | Oncology outpatient (recurring) (ONCR) | payer MEDICAID, SELFPAY ==
[2025-03-21 09:09] LABS: Basophils # 0.1 10^3/uL (0.0-0.1); Basophils % 1.2 %; Eosinophils # 0.2 10^3/uL (0.0-0.8); Eosinophils % 3.1 %; Hematocrit 41.1 % (36-47); Lymphocytes % 44.9 %; Mean Corpuscular HGB Conc 34.1 g/dL (30-55); Mean Corpuscular Hemoglobin 29.6 pg (27-33); Mean Corpuscular Volume 86.9 fl (85-98); Mean Platelet Volume 9.4 fL (7.4-10.4); Monocytes # 0.5 10^3/uL (0.2-0.9); Monocytes % 7.8 %; Neutrophils # 2.87 10^3/uL (1.8-7.7); Neutrophils % 42.9 %; Nucleated Red Blood Cells % 0 %; Platelet Count 333 10^3/cmm (157-399); Red Blood Count 4.73 10^6/uL (3.85-5.65); Red Cell Distribution Width 12.2 % (12.1-15.1)
[2025-03-21 09:24] LABS: INR 0.81 (0.8-1.2); Partial Thromboplastin Time 25.8 SECONDS (23.9-36.7)
[2025-03-21 09:25] LABS: Alanine Aminotransferase 18 U/L (0-33); Albumin Level 4.2 g/dL (3.5-5.2); Alkaline Phosphatase 61 U/L (35-105); Chloride 103 mmol/L (98-107); Potassium 4.3 mmol/L (3.5-5.1); Sodium 137 mmol/L (136-145)
[2025-03-21 09:52] LABS: Anion Gap 16.3 (5-19); Aspartate Amino Transferase 24 U/L (0-32); Blood Urea Nitrogen 14 mg/dL (6-20); Carbon Dioxide 22 mmol/L (22-29); Globulin 2.8 g/dL (1.3-4.6); Glomerular Filtration Rate 92.2 mL/min (90-130); Glucose 85 mg/dL (65-115); Osmolality Calculated 284 mOsm/kg (285-295); Total Bilirubin 0.3 mg/dL (0.15-1.2)
== END 2025-04-08 23:59 | disposition home or self-care (01) ==
PROVIDERS: Visit Provider Internal Medicine
DX: E61.1 Iron deficiency (principal); I47.10 Supraventricular tachycardia, unspecified
CPT/HCPCS: 36415; 80053; 85025; 85610; 85730

== ENCOUNTER 2025-06-27 07:51 | Oncology outpatient (recurring) (ONCR) | payer SELFPAY ==
[2025-06-27 08:17] LABS: Hematocrit 40.0 % (36-47); Hemoglobin 14.00 g/dL (11.27-16.99); Mean Corpuscular HGB Conc 35.0 g/dL (30-55); Mean Corpuscular Hemoglobin 30.6 pg (27-33); Mean Corpuscular Volume 87.3 fl (85-98); Nucleated Red Blood Cells % 0 %; Platelet Count 363 10^3/cmm (157-399); Red Blood Count 4.58 10^6/uL (3.85-5.65); White Blood Count 6.40 10^3/uL (3.29-11.43)
[2025-06-27 08:36] LABS: Alanine Aminotransferase 32 U/L (0-33); Albumin Level 4.3 g/dL (3.5-5.2); Alkaline Phosphatase 58 U/L (35-105); Anion Gap 17.2 (5-19); Aspartate Amino Transferase 26 U/L (0-32); Blood Urea Nitrogen 6 mg/dL (6-20); Calcium 9.2 mg/dL (8.5-10.5); Carbon Dioxide 24 mmol/L (22-29); Chloride 102 mmol/L (98-107); Creatinine Clr Calc Pharmacy 86.1471; Globulin 2.5 g/dL (1.3-4.6); Glucose 102 mg/dL (65-115); Osmolality Calculated 288 mOsm/kg (285-295); Potassium 3.2 mmol/L (3.5-5.1); Sodium 140 mmol/L (136-145); Total Protein 6.8 g/dL (6.6-8.7)
== END 2025-07-09 23:59 | disposition home or self-care (01) ==
PROVIDERS: Internal Medicine; Visit Provider Internal Medicine
DX: I26.99 Other pulmonary embolism without acute cor pulmonale (principal)
CPT/HCPCS: 36415; 80053; 83615; 85025; 85378

== ENCOUNTER 2025-10-01 08:00 | Oncology outpatient (recurring) (ONCR) | payer SELFPAY ==
[2025-09-19 13:40] LABS: Hematocrit 37.8 % (36-47); Hemoglobin 14.00 g/dL (11.27-16.99); Mean Corpuscular HGB Conc 37.0 g/dL (30-55); Mean Corpuscular Hemoglobin 30.0 pg (27-33); Mean Corpuscular Volume 81.1 fl (85-98); Nucleated Red Blood Cells % 0 %; Platelet Count 368 10^3/cmm (157-399); Red Blood Count 4.66 10^6/uL (3.85-5.65); White Blood Count 5.67 10^3/uL (3.29-11.43)
[2025-09-19 13:45] LABS: Alanine Aminotransferase 27 U/L (0-33); Albumin Level 4.7 g/dL (3.5-5.2); Alkaline Phosphatase 55 U/L (35-105); Anion Gap 21.5 (5-19); Aspartate Amino Transferase 30 U/L (0-32); Blood Urea Nitrogen 12 mg/dL (6-20); Calcium 9.2 mg/dL (8.5-10.5); Carbon Dioxide 26 mmol/L (22-29); Chloride 92 mmol/L (98-107); Globulin 2.4 g/dL (1.3-4.6); Glucose 102 mg/dL (65-115); Osmolality Calculated 284 mOsm/kg (285-295); Sodium 137 mmol/L (136-145); Total Protein 7.1 g/dL (6.6-8.7)
[2025-09-19 13:50] LABS: Potassium 2.5 mmol/L (3.5-5.1)
[2025-09-19 14:38] LABS: Magnesium 2.0 mg/dL (1.7-2.3)
[2025-09-19 15:26] LABS: Thyroid Stimulating Hormone 2.64 uIU/mL (0.27-4.20)
[2025-09-20] MEDS: sodium chlor 0.9% + KCl 40 mEq 40 MEQ/1,000 ML BAG 250 MEQ IV (08:22)
[2025-09-20 12:38] VITALS: BP 108/68; PULSE 92
[2025-09-26 18:45] LABS: Alanine Aminotransferase 23 U/L (0-33); Albumin Level 4.8 g/dL (3.5-5.2); Alkaline Phosphatase 50 U/L (35-105); Anion Gap 19.9 (5-19); Aspartate Amino Transferase 28 U/L (0-32); Blood Urea Nitrogen 11 mg/dL (6-20); Calcium 9.7 mg/dL (8.5-10.5); Carbon Dioxide 27 mmol/L (22-29); Chloride 91 mmol/L (98-107); Globulin 2.6 g/dL (1.3-4.6); Glucose 74 mg/dL (65-115); Osmolality Calculated 278 mOsm/kg (285-295); Sodium 135 mmol/L (136-145); Total Protein 7.4 g/dL (6.6-8.7)
[2025-09-26 19:05] LABS: Potassium 2.9 mmol/L (3.5-5.1)
[2025-09-27 08:34] VITALS: BP 100/70; PULSE 102; RESP 17; TEMP 36.8; O2SAT 98
[2025-09-27] MEDS: sodium chlor 0.9% + KCl 40 mEq 40 MEQ/1,000 ML BAG 250 MEQ IV (08:42)
[2025-09-27 13:02] VITALS: BP 107/82; PULSE 97; RESP 17; TEMP 36.8; O2SAT 98
[2025-09-30 08:24] LABS: Alanine Aminotransferase 19 U/L (0-33); Albumin Level 4.8 g/dL (3.5-5.2); Alkaline Phosphatase 42 U/L (35-105); Anion Gap 16.9 (5-19); Aspartate Amino Transferase 30 U/L (0-32); Blood Urea Nitrogen 8 mg/dL (6-20); Calcium 9.7 mg/dL (8.5-10.5); Carbon Dioxide 28 mmol/L (22-29); Chloride 93 mmol/L (98-107); Globulin 2.1 g/dL (1.3-4.6); Glucose 83 mg/dL (65-115); Osmolality Calculated 277 mOsm/kg (285-295); Sodium 135 mmol/L (136-145); Total Protein 6.9 g/dL (6.6-8.7)
[2025-09-30 08:25] LABS: Potassium 2.9 mmol/L (3.5-5.1)
[2025-10-01] MEDS: sodium chlor 0.9% + KCl 40 mEq 40 MEQ/1,000 ML BAG 250 MEQ IV (08:33)
[2025-10-01 13:12] VITALS: BP 99/58; PULSE 101; RESP 16; TEMP 37.1; O2SAT 97
== END 2025-10-09 23:59 | disposition home or self-care (01) ==
PROVIDERS: Nurse Practitioner; Nurse Practitioner Family; Visit Provider Internal Medicine
DX: Z53.9 Procedure and treatment not carried out, unspecified reason; E87.6 Hypokalemia; Z79.899 Other long term (current) drug therapy
CPT/HCPCS: 36415; 80053; 83735; 84443; 85025; 85378; 96365; 96366; J9999